=== PATIENT | male | born 1980 | race Caucasian/White ===

== ENCOUNTER 2021-05-06 17:10 | Outpatient (REF) | payer MEDICARE, MEDICAID, SELFPAY ==
[2021-05-06 20:52] LABS: HCT 39.7 % (40.0-50.0); HGB 12.9 g/dL (13.5-17.5); MCH 31.1 pg (27.0-33.0); MCHC 32.5 % (32.0-36.0); MCV 95.7 fL (80-95); MPV 11.2 fL (8.0-11.0); Platelet Count 218 10^3/uL (130-400); RBC 4.15 10^6/uL (4.36-5.78); RDW 14.5 % (11.8-14.1); RDW-SD 50.8 fL; WBC 7.72 10^3/uL (4.4-10.8)
[2021-05-06 21:15] LABS: ALT 16 U/L (16-63); AST 10 U/L (15-37); Albumin 3.5 g/dL (3.4-5.0); Alkaline Phosphatase 107 U/L (46-116); Anion Gap 7.9 mmol/L (3-11); BUN 18 mg/dL (7-18); Bilirubin, Total 0.3 mg/dL (0.2-1.0); CO2 36.1 mmol/L (21.0-32.0); CREATININE 0.9 mg/dL (0.70-1.30); Calcium 8.7 mg/dL (8.5-10.1); Chloride 110 mmol/L (98-107); Glucose 85 mg/dL (74-106); Potassium 3.1 mmol/L (3.5-5.1); Sodium 154 mmol/L (136-145); Total Protein 6.6 g/dL (6.4-8.2)
[2021-05-07 19:10] LABS: Absolute Lymphocyte Count 1.16 10^3/uL (1.2-3.4); Absolute Monocyte Count 0.77 10^3/uL (0.1-0.8); Absolute Neutrophil Count 5.79 10^3/uL (1.2-6.7); Diff Comment Manual Differential; RBC Morphology Normal
[2021-05-09 00:57] LABS: Clozapine 122 ng/mL (350-600); Clozapine+Norclozapine Total 187 ng/mL; Norclozapine 65 ng/mL
== END 2021-05-06 17:11 | disposition home or self-care (01) ==
LOC: NCHCN 17:10
PROVIDERS: Visit Provider Nurse Practitioner Family
DX: Z51.81 Encounter for therapeutic drug level monitoring (principal); F25.9 Schizoaffective disorder, unspecified
CPT/HCPCS: 80053; 85027; 80159; 85007

== ENCOUNTER 2021-05-07 22:07 | Emergency (ER) | payer MEDICARE, MEDICAID, SELFPAY ==
--- NOTE | 2021-05-07 22:00 | RT.EKG_ITS ---
APPROVED REPORT Exam: Resting ECG Reason for Exam: chest pain Patient Location: E HR:94 bpm ECG Measurements Heart Rate 94 AXIS SD [id number] P [id number] QRSd 118 QRS 47 QT 359 T 156 QTc 449 Conclusion Atrial fibrillation Nonspecific st segment changes intraventricular conduction delay
[2021-05-07 22:13] VITALS: BP 104/81; PULSE 113; RESP 17; TEMP 36.4; O2SAT 96
--- NOTE | 2021-05-07 22:15 | DI.RAD_ITS ---
Exam(s) XR CHEST 2V PA LATERAL EXAM: XR CHEST 2V PA LATERAL CLINICAL HISTORY: chest pains. TECHNIQUE: 2D digital imaging was performed. COMPARISON: No exams were available for comparison FINDINGS: There is cardiomegaly. Mediastinum not widened. Lungs are clear. No infiltrates nor pleural effusions. No pulmonary edema IMPRESSION: No acute pulmonary findings. Cardiomegaly. DATA REPOSITORY: RADIATION DOSE DELIVERED:
--- NOTE | 2021-05-07 22:25 | W.ED.GENAD ---
Discharge Plan Disposition Patient Disposition: HOME Condition: Improving Discharge Details Chief Complaint: Chest Pain Clinical Impression: Chest pain Primary Care Provider: Unknown,Unknown ED Provider: Magan Bueno Home Meds and New Rx's Prescriptions: Continued furosemide [Lasix] 40 mg Tablet 40 mg PO DAILY RF: 0 carvedilol [Coreg] 25 mg Tablet 25 mg PO BID RF: 0 potassium chloride 10 mEq Capsule, Extended Release 10 meq PO DAILY RF: 0 torsemide 20 mg Tablet 40 mg PO DAILY RF: 0 clozapine [Clozaril] 100 mg Tablet 150 mg PO HS RF: 0 oxcarbazepine [Trileptal] 300 mg Tablet 900 mg PO BID RF: 0 spironolactone 25 mg Tablet 12.5 mg PO DAILY RF: 0 pantoprazole [Protonix] 40 mg Tablet,Delayed Release (Dr/Ec) 40 mg PO DAILY RF: 0 benztropine 2 mg Tablet 2 mg PO BID RF: 0 docusate sodium [Colace] 100 mg Capsule 100 mg PO BID RF: 0 calcium carbonate 500 mg calcium (1,250 mg) Tablet,Chewable 500 mg PO QID PRNRF: 0 lorazepam [Ativan] 1 mg Tablet 1 mg PO BID PRNRF: 0 Lactobacillus acidophilus [Acidophilus] Capsule 100 mg PO DAILY RF: 0 perphenazine 8 mg Tablet 16 mg PO QID RF: 0 naproxen [Naprosyn] 500 mg Tablet 500 mg PO BID PRNRF: 0 levocarnitine 250 mg Capsule 500 mg PO DAILY RF: 0 cholecalciferol (vitamin D3) [Vitamin D3] 25 mcg (1,000 unit) Capsule 25 mcg PO DAILY RF: 0 Eliquis 5 mg Tablet 5 mg PO BID RF: 0 Jardiance 10 mg Tablet 10 mg PO DAILY RF: 0 melatonin 3 mg Capsule 6 mg PO HS PRNRF: 0 Discharge Instructions Instructions: Chest Pain (ED) Additional Instructions: Your CAT scan did not show evidence of blood clot nor of gallbladder disease. There was a question of a subtle right adrenal nodule for which the radiologist has recommended an outpatient MRI. Please discuss this with your regular doctor. Continue your routine medications. Please follow-up regular doctor for recheck in the next 7 to 10 days time. We will ask our care management team to help arrange a follow-up. Medical Decision Making <TRIP Pedraza - Last Filed: 05/08/21 00:48> Brenda is a 41 year old male, brought in by home care provider at [facility], with c/c of CP and 'gallbladder pain. States that he has had this pain for one year. Pain is maximal tonight. States that his abdominal pain and chest pain equal each other. States he has known hx of atrial fibrillation. Patient is unclear if he has been taking his anticoagulant. Patient is a fairly poor historian. He denies any fevers or chills. His that he was just recently discharged from [facility] for his gallbladder disease. Questions if he is still on antibiotics for this. No previous surgical intervention for this. Past medical history is fairly unclear, will request the notes from [facility]. He denies any pain radiating into his back. No change in bowel or bladder habits. No fevers or chills. States he does have shortness of breath and chest pain when at rest, these are relieved with movement. His gallbladder discomfort is controlled with diet. On exam, patient appears chronically ill. He is tachycardic with a rate of 115 and noted to be irregularly irregular. No murmurs rubs or gallops appreciated. Lungs are clear. He indicates his right upper quadrant area of discomfort but no pain is elicited with palpation. No CVA tenderness. No pitting edema in the lower extremities. Differential this time is quite broad. Is unclear if he has been taking his anticoagulation, I am concerned for potential PE given the pleuritic nature of his chest pain. Also considered ACS, acute cholecystitis, GERD. His history exam is not consistent with dissection. Will obtain baseline labs and imaging. EKG was obtained and reviewed by Dr. Bueno. Patient is in irregularly irregular rhythm consistent with his history of atrial fibrillation with a rate of 94. Nonspecific ST segment changes. Intraventricular conduction delay. Labs reviewed. No leukocytosis. Hemoglobin slightly low at 12.2, is appears to be baseline for the patient. D-dimer slightly elevated at 600, we will obtain a CT for PE protocol. Potassium is low at 3.2, will replenish this orally. Troponin within normal limits. Given the length of time the symptoms have been ongoing, do not feel that repeat troponin is warranted at time. [facility] employee was able to obtain further past medical history. Past medical history is pertinent for ADD, CHF, hypertension, migraines, obesity, schizoaffective disorder, RUTH, atrial fibrillation, pulmonary embolism, psoriatic arthritis, ME,, GERD, gallbladder disease, psoriasis, adrenal adenoma. Patient is anticoagulated and has been taking his medications. At the end of my shift, care transition to Dr. Bueno with CTA for PE protocol as well as CT abdomen pending. Patient remains hemodynamically stable, resting comfortably. Patient sleeping intermittently. <Magan Bueno MD - Last Filed: 05/08/21 01:54> Received signout from Ms. Khalil on the patient pending CT imaging results and repeat troponin. CT images were somewhat limited but no clear evidence of pulmonary embolism. See formal report. No acute finding in the abdomen. Repeat troponin obtained and negative. We will ask home care consultant to arrange a follow-up for the patient with Dr. Ochoa at [place]. Patient stable and improved at this time HPI <TRIP Pedraza - Last Filed: 05/08/21 00:48> General Mode of arrival: ambulatory. Date/Time Provider Initiated Documentation: 05/07/21 22:08. Limitations to Documentation: no limitations. Information obtained by: patient, family (long term acute care registered nurse from [facility]) and RN notes reviewed. History of Present Illness 41 year old M presents to the emergency department with the chief complaint of chest pain, gallbladder pain, described as moderate and similar to prior episodes, with intensity rated at 7. Quality is described as crushing, and is localized to the chest. Patient reports no radiation. Patient started experiencing this year(s) (1) and it has been constant. No relieving factors improve symptom(s), No exacerbating factors reported . Patient notes chest pain, shortness of breath and weakness (generalized); denies cough, diaphoresis, fever/chills, loss of appetite, nausea/vomiting and rash. Patient did receive the following treatments prior to arrival, none Related Data Home Medications Medication Instructions Recorded Confirmed Eliquis 5 mg PO BID 05/07/21 05/07/21 Jardiance 10 mg PO DAILY 05/07/21 05/07/21 Lactobacillus acidophilus 100 mg PO DAILY 05/07/21 05/07/21 [Acidophilus] benztropine 2 mg PO BID 05/07/21 05/07/21 calcium carbonate 500 mg PO QID PRN 05/07/21 05/07/21 carvedilol [Coreg] 25 mg PO BID 05/07/21 05/07/21 cholecalciferol (vitamin D3) 25 mcg PO DAILY 05/07/21 05/07/21 [Vitamin D3] clozapine [Clozaril] 150 mg PO HS 05/07/21 05/07/21 docusate sodium [Colace] 100 mg PO BID 05/07/21 05/07/21 furosemide [Lasix] 40 mg PO DAILY 05/07/21 05/07/21 levocarnitine 500 mg PO DAILY 05/07/21 05/07/21 lorazepam [Ativan] 1 mg PO BID PRN 05/07/21 05/07/21 melatonin 6 mg PO HS PRN 05/07/21 05/07/21 naproxen [Naprosyn] 500 mg PO BID PRN 05/07/21 05/07/21 oxcarbazepine [Trileptal] 900 mg PO BID 05/07/21 05/07/21 pantoprazole [Protonix] 40 mg PO DAILY 05/07/21 05/07/21 perphenazine 16 mg PO QID 05/07/21 05/07/21 potassium chloride 10 meq PO DAILY 05/07/21 05/07/21 spironolactone 12.5 mg PO DAILY 05/07/21 05/07/21 torsemide 40 mg PO DAILY 05/07/21 05/07/21 Allergies Allergy/AdvReac Type Severity Reaction Status Date / Time latex Allergy Severe Unverified 05/07/21 22:23 divalproex sodium Allergy Unverified 05/07/21 22:55 [facility] General Stated Complaint: Chest Pain CONNER: 3 Review of Systems <TRIP Pedraza - Last Filed: 05/08/21 00:48> Constitutional Constitutional: Reports as per HPI, Denies chills, Denies fever(s), Denies headache(s), Denies lethargy and Denies poor appetite Eyes Eyes: Denies change in vision ENT Ears, Nose, Mouth, and Throat: Denies dizziness and Denies headache(s) Cardiovascular Cardiovascular: Reports as per HPI, Reports chest pain, Reports chest pain at rest, Denies chest pain with activity, Denies diaphoresis, Denies syncope, Denies lightheadedness, Denies radiating jaw, neck or arm pain, Reports dyspnea and Denies dyspnea on exertion (SOB and CP improved with activity) Respiratory Respiratory: Reports as per HPI, Denies chest congestion, Denies cough, Denies pain on inspiration, Reports pain with cough, Reports dyspnea, Denies dyspnea on exertion (SOB and CP improved with activity) and Denies wheezing Gastrointestinal Gastrointestinal: Reports as per HPI, Reports abdominal pain, Denies diarrhea, Denies nausea and Denies vomiting Genitourinary Genitourinary: Denies system reviewed and no additional complaints, except as documented (denies change in urinary habits) Musculoskeletal Musculoskeletal: Reports as per HPI and Denies back pain Integumentary/Breasts Skin/Breast: Reports as per HPI and Denies rash Neurologic Neurologic: Reports as per HPI, Denies dizziness, Denies syncope and Denies headache(s) Allergic/Immunologic Allergic/Immunologic: Denies wheezing PFSH <TRIP Pedraza - Last Filed: 05/08/21 00:48> Social History Smoking/Tobacco Use Status: Never Smoking risk assessment performed?: Yes Alcohol Intake: former Drug use: Never Substance use type: does not use Do you feel safe at home: Yes Do you feel safe in your relationship?: Yes Exam <TRIP Pedraza - Last Filed: 05/08/21 00:48> Const General: cooperative, comfortable, well developed, anxious and ill appearing chronically Nutritional Appearance: well nourished and obese Orientation: alert, awake and oriented x3 HENMT Head: normal to inspection Ears: hearing grossly normal bilaterally Mouth: moist mucous membranes Chest Chest: normal inspection of the chest (multitude of sticky areas consistent with previous cardiac monitoring), normal palpation of entire chest wall and no crepitus Resp Effort & Inspection: normal respiratory effort, able to speak in complete sentences and no respiratory distress Auscultation: clear to auscultation bilaterally, no rales, no rhonchi and no wheezes Cardio Rate: regular rate Rhythm: abnormal rhythm irregularly irregular Heart Sounds: S1 normal and S2 normal GI Inspection: normal to inspection, no edema, non-distended and obesity Palpation: soft, no hepatosplenomegaly, not firm, no guarding, not rigid and nontender (indicates RUQ but no pain with palpation) Auscultation: normal bowel sounds Back/Spine/Pelvis Back: no CVA tenderness Thoracic/Lumbar Spine: thoracic and lumbar spine normal to inspection Skin General skin exam: no rashes or lesions noted Trauma: no lacerations or abrasions Neuro General: patient alert, patient awake and patient oriented x3 Cognition: normal cognition Speech: speech normal Gait: normal gait (appears shaky) Extrem General: normal to inspection, capillary refill normal, no pedal edema, no calf tenderness and normal gait Psych Appearance: grossly normal and disheveled Mental Status: mental status grossly normal Speech and Movement: speech and movement normal Course <TRIP Pedraza - Last Filed: 05/08/21 00:48> Vital Signs Vital signs: Vital Signs Temperature 36.4 C L 05/07/21 22:13 Pulse 113 H 05/07/21 22:13 Respiratory Rate 17 05/07/21 22:13 Blood Pressure 104/81 05/07/21 22:13 Pulse Oximetry 96 05/07/21 22:13 Temperature 36.4 C L 05/07/21 22:13 Temperature Source Temporal Artery Scan 05/07/21 22:13 Pulse 113 H 05/07/21 22:13 Respiratory Rate 17 05/07/21 22:13 Respiratory Effort Non-Labored 05/07/21 22:19 Blood Pressure 104/81 05/07/21 22:13 Blood Pressure Position Supine 05/07/21 22:13 Pulse Oximetry 96 05/07/21 22:13 Oxygen Delivery Method Room Air 05/07/21 22:13 Oxygen Flow Rate 0 05/07/21 22:13 Pain Level 7 05/07/21 22:13 Sign Out <TRIP Pedraza - Last Filed: 05/08/21 00:48> Sign Out Data: Sign Out Comment: Care transition to Dr. Bueno with CTA for PE as well as CT abdomen for evaluation of gallbladder pending. Have requested recent discharge summary from [facility]. Patient currently sleeping, stable. Last updated by Nallely Gamez PA at 05/07/21 23:40
[2021-05-07 22:39] LABS: Abs Immature Grans 0.06 10^3/uL (0.0-0.06); Absolute Basophil Count 0.06 10^3/uL (0.0-0.2); Absolute Eosinophil Count 0.07 10^3/uL (0.0-0.7); Absolute Monocyte Count 0.72 10^3/uL (0.1-0.8); Absolute Neutrophil Count 5.91 10^3/uL (1.2-6.7); Basophils % 0.7; Eosinophils % 0.8; HCT 36.8 % (40.0-50.0); HGB 12.2 g/dL (13.5-17.5); Immature Grans % 0.7; Lymphocytes % 22.7; MCH 31.2 pg (27.0-33.0); MCHC 33.2 % (32.0-36.0); MCV 94.1 fL (80-95); MPV 10.1 fL (8.0-11.0); Monocytes % 8.2; Neutrophils % 66.9; Nucleated RBC 0 %; Platelet Count 217 10^3/uL (130-400); RBC 3.91 10^6/uL (4.36-5.78); RDW 14.5 % (11.8-14.1); RDW-SD 49.5 fL; WBC 8.82 10^3/uL (4.4-10.8)
[2021-05-07 22:54] LABS: ALT 15 U/L (16-63); AST 7 U/L (15-37); Albumin 3.3 g/dL (3.4-5.0); Alkaline Phosphatase 106 U/L (46-116); Anion Gap 6.8 mmol/L (3-11); BUN 21 mg/dL (7-18); Bilirubin, Total 0.2 mg/dL (0.2-1.0); CO2 33.2 mmol/L (21.0-32.0); Calcium 8.7 mg/dL (8.5-10.1); Chloride 106 mmol/L (98-107); Glucose 103 mg/dL (74-106); Magnesium 1.9 mg/dL (1.8-2.4); Potassium 3.2 mmol/L (3.5-5.1); Sodium 146 mmol/L (136-145); Total Protein 6.9 g/dL (6.4-8.2); Troponin I < 0.05 ng/mL (<0.06)
[2021-05-07 22:59] LABS: INR 1.2 (0.9-1.1); PTT Activated 26.1 sec (21.0-27.5); Prothrombin Time 11.6 sec (9.3-11.0)
[2021-05-07 23:08] LABS: D-Dimer 600 ng/mlFEU (<500)
[2021-05-07] MEDS: Potassium Chloride 20 MEQ TABCR 40 MEQ PO (23:11)
--- NOTE | 2021-05-07 23:15 | DI.CT_ITS ---
Exam(s) CT CHEST PE ABD PELVIS W EXAM: CT CHEST PE ABD PELVIS W CLINICAL HISTORY: SOB, CP, RUQ pain. TECHNIQUE: Imaging Protocol: Axial CT angiography was performed with multi-slice acquisition and m ulti-planar and/or 3D reconstructions. CONTRAST MATERIAL: Intravenous: Omnipaque 350 Contrast volume:100 ml Oral: None COMPARISON: No exams were available for comparison FINDINGS: CHEST: PULMONARY ARTERIES: There are no intra-arterial filling defects to suggest the presence of acute cent ral pulmonary emboli. Injection bolus is inadequate to determine the presence of pulmonary emboli an d distal pulmonary artery tree. LUNGS: There is no evidence of pulmonary infarction. There are no pleural effusions.No significant f indings in the trachea and mainstem bronchi. MEDIASTINUM: There is no hilar nor mediastinal adenopathy. Visualized thyroid unremarkable. CARDIAC: There is 4 chamber cardiomegaly.No shift of the interventricular septum. No pericardial eff usion. Caliber thoracic aorta is within normal limits. OSSEOUS: No significant osseous lesions.. ABDOMEN: There is no ascites. LIVER: There are no focal hepatic lesions nor dilatation of intrahepatic ducts. GALLBLADDER/BILIARY: No obvious gallbladder pathology. CBD is not dilated. PANCREAS: No evidence of pancreatic mass nor dilatation of the pancreatic duct. SPLEEN: Spleen is not enlarged. There are no intrasplenic lesions. Splenic and portal veins are ribeiro nt. ADRENALS: There is a 2.3 x 1.7 cm nodule in the medial limb of the right adrenal gland. Left adrenal gland is unremarkable. KIDNEYS:No cysts evident. No calculi nor hydronephrosis. No solid renal masses. ABDOMINAL AORTA: Abdominal aorta is not enlarged. LYMPH NODES: There is no retroperitoneal or para-aortic adenopathy. ABDOMINAL WALL/GI: Midline fat containing umbilical hernia. No bowel obstruction. PELVIS: LYMPH NODES: There is no intrapelvic nor inguinal adenopathy. However, in the right groin there is a slightly dilated venous channel with diameter of 2 cm, this draining into the right common femoral v ein. GI: No evidence of appendicitis.No evidence of sigmoid diverticulitis.However, there is a small amoun t of free fluid in the dependent aspect of the pelvis URINARY BLADDER: No calculi nor masses evident REPRODUCTIVE: Prostate not enlarged. OSSEOUS: No significant osseous lesions. IMPRESSION: 1. No evidence of acute control pulmonary emboli nor pulmonary infarction. Bolus of contrast is inad equate to determine patency of distal pulmonary arteries in either lung. 2. There are no pleural effusions. 3. Cardiomegaly. No obvious pulmonary edema. 4. There is a 2.3 x 1.7 centimeter nodule in the right adrenal gland. Follow-up MRI recommended for added specificity as to whether this is an adenoma or other pathology. 5. Dilated vessel in the right groin is a venous collateral which is draining into the right common f emoral vein. 6. There is a trace amount of free fluid in the dependent aspect of the pelvis. Appropriate follow- up recommended given that this is a male patient. RADIATION DOSE DELIVERED: 3,002.97mGy.cm Total DLP DATA REPOSITORY: All CT scans at this facility are submitted to the National Radiology Data Registry (NRDR) Dose Index Registry (DIR) with the [employer] (ACR). RADIATION OPTIMIZATION: All CT scans at this facility use at least one of these dose optimization te chniques: automated exposure control; mA and/or kV adjustment per patient size (includes targeted exa ms where dose is matched to clinical indication); or iterative reconstruction.
[2021-05-07] MEDS: Omnipaque 350 MG/ML 100 ML BTL IV (23:31)
[2021-05-07] MEDS: Normal Saline - Diluent 50 ML VIAL IV (23:32)
--- NOTE | 2021-05-07 23:49 | DI.VRAD_ITS ---
PROCEDURE INFORMATION: Exam: XR Chest Exam date and time: 05/07/2021 10:19 PM Age: 41 years old Clinical indication: Other: Chest pains TECHNIQUE: Imaging protocol: XR of the chest. Views: 2 views. COMPARISON: No relevant prior studies available. FINDINGS: Lungs: No consolidation is seen. Pleural spaces: There is no pleural effusion or pneumothorax. Heart/Mediastinum: There is [id number] multichamber cardiomegaly concerning for a cardiomyopathy or pericardial effusion. There is no congestive heart failure. Bones/joints: The bones are grossly intact with mild spondylosis of the thoracic spine. IMPRESSION: 1. [id number] cardiomegaly without overt failure. Dictated and Authenticated by: Babar Whitlock MD. Ordering:CHARLOTTE Carrero MD
[2021-05-08] VITALS (13 sets, daily range): BP systolic 112–133; BP diastolic 49–82; PULSE 79–128; RESP 14–19; O2SAT 80–95
--- NOTE | 2021-05-08 00:27 | DI.VRAD_ITS ---
PROCEDURE INFORMATION: Exam: CTA Chest With Contrast Exam date and time: 05/07/2021 11:17 PM Age: 41 years old Clinical indication: Other: SOB, cp, ruq pain; Additional info: SOB, cp, ruq pain, motion due to PT unable to hold his breath TECHNIQUE: Imaging protocol: Computed tomographic angiography of the chest with contrast. 3D rendering (Not supervised by radiologist): MIP and/or 3D reconstructed images were created by the technologist. Radiation optimization: All CT scans at this facility use at least one of these dose optimization techniques: automated exposure control; mA and/or kV adjustment per patient size (includes targeted exams where dose is matched to clinical indication); or iterative reconstruction. Contrast material: OMINAPQUE 350; Contrast volume: 100 ml; Contrast route: INTRAVENOUS (IV); COMPARISON: CR XR CHEST 2V PA LATERAL 05/07/2021 10:44 PM FINDINGS: Limitations: Significant respiratory motion and suboptimal enhancement of the pulmonary arteries. Pulmonary arteries: There is no large or medium-sized central pulmonary embolus. Small or distal emboli cannot be excluded reliably. Aorta: No aortic aneurysm is seen. Lungs: There is no lobar consolidation. The central airway is grossly clear. Pleural spaces: Unremarkable. No pneumothorax. No pleural effusion. Heart: There is mild to moderate multichamber cardiomegaly but no pericardial effusion. No overt congestive heart failure is seen. Lymph nodes: No pathologic lymphadenopathy identified. Bones/joints: There is mild spondylosis of the thoracic spine. No acute osseous abnormality is seen. Soft tissues: Unremarkable. IMPRESSION: 1. Limited by significant motion and suboptimal enhancement of the pulmonary arteries. 2. No definite large or medium-sized pulmonary embolus. Small or distal emboli cannot be excluded reliably given the limitations. 3. Mild to moderate multichamber cardiomegaly but no overt congestive heart failure. PROCEDURE INFORMATION: Exam: CT Angiography Abdomen With Contrast Exam date and time: 05/07/2021 11:17 PM Age: 41 years old Clinical indication: Other: SOB, cp, ruq pain; Additional info: SOB, cp, ruq pain, motion due to PT unable to hold his breath TECHNIQUE: Imaging protocol: Computed tomographic angiography images of the abdomen with intravenous contrast material. 3D rendering (Not supervised by radiologist): MIP and/or 3D reconstructed images were created by the technologist. Contrast material: OMINAPQUE 350; Contrast volume: 100 ml; Contrast route: INTRAVENOUS (IV); COMPARISON: CR XR CHEST 2V PA LATERAL 05/07/2021 10:44 PM FINDINGS: Limitations: Motion. Aorta: No aortic aneurysm. Celiac trunk and mesenteric arteries: No occlusion or significant stenosis. Renal arteries: No occlusion or significant stenosis. Liver: Hepatic steatosis. Gallbladder and bile ducts: Normal. No calcified stones. No ductal dilation. Pancreas: The pancreas is mildly atrophic. Spleen: Normal. No splenomegaly. Adrenals: There is a 2.3 cm right adrenal nodule (Hounsfield units: 51.5). The left adrenal gland is normal. Kidneys and ureters: Normal. No hydronephrosis. Stomach and bowel: There is mild diverticulosis without diverticulitis. There is no small bowel obstruction or ileus. Lymph nodes: Unremarkable. No enlarged lymph nodes. Intraperitoneal space: There is a trace amount of free fluid in the pelvis (Hounsfield units:-4.8). There is no drainable abscess or free air. Reproductive: I suspect there is a 1.8 x 3.0 cm pseudoaneurysm within the right groin. Bones/joints: Unremarkable. No acute fracture. No dislocation. Soft tissues: Unremarkable. IMPRESSION: 1. Limited by significant motion. 2. Diverticulosis without definite diverticulitis. 3. Hepatic steatosis. 4. Findings suspicious for a 1.8 x 3.0 cm pseudoaneurysm within the right groin. 5. Trace amount of free fluid in the pelvis. No free air or drainable abscess. 6. Indeterminate right adrenal nodule. This may be an atypical adrenal adenoma, although, other adrenal lesions are not excluded. Correlation with a nonemergent adrenal gland protocol MRI advised. Dictated and Authenticated by: Babar Whitlock MD. Ordering:OMID Browning MD
[2021-05-08 01:42] LABS: Troponin I < 0.05 ng/mL (<0.06)
== END 2021-05-08 02:00 | disposition home or self-care (01) ==
PROVIDERS: Emergency Provider Emergency Medicine
DX: R07.9 Chest pain, unspecified (principal)
CPT/HCPCS: 36415; 71275; 74177; 80053; 93005; 99285; 71046; 83735; 84484; 85025; 85379; 85610; 85730; 93010; 99284; J3490

== ENCOUNTER 2021-05-11 19:40 | Emergency (ER) | payer MEDICARE, MEDICAID, SELFPAY ==
[2021-05-11 19:47] VITALS: BP 158/135; PULSE 61; RESP 18; TEMP 36.5; O2SAT 95
--- NOTE | 2021-05-11 20:00 | RT.EKG_ITS ---
APPROVED REPORT Exam: Resting ECG Reason for Exam: Hx Atrial fibrillation, palpitations Patient Location: E HR:86 bpm ECG Measurements Heart Rate 86 AXIS WI [id number] P [id number] QRSd 141 QRS 0 QT 405 T 148 QTc 486 Conclusion Atrial fibrillation...? atrial activity Nonspecific intraventricular conduction delay...QRSd >115mS, not LBBB/RBBB Abnormal T, consider ischemia, lateral leads...T <-0.20mV, I aVL V5 V6 Physician: Artifact vs flutter. minimal unchanged depressions in the lateral leads, unchanged from p rior ekg on 05/07/21
--- NOTE | 2021-05-11 20:21 | W.ED.GENAD ---
Discharge Plan Disposition Patient Disposition: HOME Condition: Stable Discharge Details Clinical Impression: Abdominal pain Primary Care Provider: Unknown,Unknown ED Provider: lAesia Choi Home Meds and New Rx's Prescriptions: Continued ibuprofen 600 mg Tablet 600 mg PO TID PRNRF: 0 lisinopril [Zestril] 40 mg Tablet 40 mg PO DAILY RF: 0 capsaicin [Capzasin-HP] 0.1 % Cream 1 applic TOPICAL BID RF: 0 clonidine HCl 0.1 mg Tablet 0.1 mg PO BID RF: 0 furosemide [Lasix] 40 mg Tablet 40 mg PO DAILY RF: 0 carvedilol [Coreg] 25 mg Tablet 25 mg PO BID RF: 0 potassium chloride 10 mEq Capsule, Extended Release 10 meq PO DAILY RF: 0 torsemide 20 mg Tablet 40 mg PO DAILY RF: 0 clozapine [Clozaril] 100 mg Tablet 150 mg PO HS RF: 0 oxcarbazepine [Trileptal] 300 mg Tablet 900 mg PO BID RF: 0 spironolactone 25 mg Tablet 12.5 mg PO DAILY RF: 0 pantoprazole [Protonix] 40 mg Tablet,Delayed Release (Dr/Ec) 40 mg PO DAILY RF: 0 benztropine 2 mg Tablet 2 mg PO BID RF: 0 docusate sodium [Colace] 100 mg Capsule 100 mg PO BID RF: 0 calcium carbonate 500 mg calcium (1,250 mg) Tablet,Chewable 500 mg PO QID PRNRF: 0 lorazepam [Ativan] 1 mg Tablet 1 mg PO BID PRNRF: 0 Lactobacillus acidophilus [Acidophilus] Capsule 100 mg PO DAILY RF: 0 perphenazine 8 mg Tablet 16 mg PO QID RF: 0 naproxen [Naprosyn] 500 mg Tablet 500 mg PO BID PRNRF: 0 levocarnitine 250 mg Capsule 500 mg PO DAILY RF: 0 cholecalciferol (vitamin D3) [Vitamin D3] 25 mcg (1,000 unit) Capsule 25 mcg PO DAILY RF: 0 Eliquis 5 mg Tablet 5 mg PO BID RF: 0 Jardiance 10 mg Tablet 10 mg PO DAILY RF: 0 melatonin 3 mg Capsule 6 mg PO HS PRNRF: 0 Discharge Instructions Instructions: Abdominal Pain (ED) Additional Instructions: Follow up with primary care provider in 3-5 days. Return to ED sooner if any worsening or concerns. Increase oral fluids. Please take Tylenol or Ibuprofen with food every 4-6 hours as needed for pain and swelling. At this time labs are not indicative of gallbladder problem at this time. Medical Decision Making 41-year-old male with a history of schizophrenia, atrial fibrillation, who lives at [facility] presents to the ER with abdominal pain and nausea after eating hotdogs mac & cheese approximately 1 hour prior to arrival. Patient has not vomited. Patient denies any dysuria. He does report worsened my A. fib does endorse palpitations. No chest pain no shortness of breath. Caretakers are at bedside. Patient has a past medical history of ADD, CHF, PE, hypertension, obesity, migraine headaches, RUTH, ID, GERD, adrenal adenoma. At this time work-up ordered including EKG, serial troponins, CBC, CMP, lipase Patient was seen here 4 days ago for similar complaint had a CT chest abdomen pelvis which showed no gallbladder etiology no dilation of the common bile duct. Ok'd to take his PM meds. Labs show no leukocytosis RBC 3.97 sodium 149, potassium 3.5, chloride 110 BUN 25 creatinine 1.1 GFR greater than [address] abd Pelvis with contrast ordered. 2206: CT Declined by patient, discussed lab results with patient and caregiver, patient would like to be DC'd home. At this time given the normal lab values I do believe that this is reasonable and CT canceled. Patient discharged in the care of his caregivers back to his assisted living facility instructed to follow-up with PCP. This text was generated using [employer] dictation system, please disregard any oddities of phrase or misspellings. HPI General Mode of arrival: ambulatory. Date/Time Provider Initiated Documentation: 05/11/21 20:06. Limitations to Documentation: no limitations. Information obtained by: patient, RN notes reviewed and old records reviewed. HPI Narrative: 41-year-old male with a history of schizophrenia, atrial fibrillation, who lives at [facility] presents to the ER with abdominal pain and nausea after eating hotdogs mac & cheese approximately 1 hour prior to arrival. Patient has not vomited. Patient denies any dysuria. He does report worsened my A. fib does endorse palpitations. No chest pain no shortness of breath. Caretakers are at bedside. Patient has a past medical history of ADD, CHF, PE, hypertension, obesity, migraine headaches, RUTH, ID, GERD, adrenal adenoma. Related Data Home Medications Medication Instructions Recorded Confirmed Eliquis 5 mg PO BID 05/07/21 05/11/21 Jardiance 10 mg PO DAILY 05/07/21 05/11/21 Lactobacillus acidophilus 100 mg PO DAILY 05/07/21 05/11/21 [Acidophilus] benztropine 2 mg PO BID 05/07/21 05/11/21 calcium carbonate 500 mg PO QID PRN 05/07/21 05/11/21 carvedilol [Coreg] 25 mg PO BID 05/07/21 05/11/21 cholecalciferol (vitamin D3) 25 mcg PO DAILY 05/07/21 05/11/21 [Vitamin D3] clozapine [Clozaril] 150 mg PO HS 05/07/21 05/11/21 docusate sodium [Colace] 100 mg PO BID 05/07/21 05/11/21 furosemide [Lasix] 40 mg PO DAILY 05/07/21 05/07/21 levocarnitine 500 mg PO DAILY 05/07/21 05/11/21 lorazepam [Ativan] 1 mg PO BID PRN 05/07/21 05/11/21 melatonin 6 mg PO HS PRN 05/07/21 05/11/21 naproxen [Naprosyn] 500 mg PO BID PRN 05/07/21 05/11/21 oxcarbazepine [Trileptal] 900 mg PO BID 05/07/21 05/11/21 pantoprazole [Protonix] 40 mg PO DAILY 05/07/21 05/11/21 perphenazine 16 mg PO QID 05/07/21 05/11/21 potassium chloride 10 meq PO DAILY 05/07/21 05/11/21 spironolactone 12.5 mg PO DAILY 05/07/21 05/11/21 torsemide 40 mg PO DAILY 05/07/21 05/11/21 capsaicin [Capzasin-HP] 1 applic TOPICAL BID 05/11/21 05/11/21 clonidine HCl 0.1 mg PO BID 05/11/21 05/11/21 ibuprofen 600 mg PO TID PRN 05/11/21 05/11/21 lisinopril [Zestril] 40 mg PO DAILY 05/11/21 05/11/21 Allergies Allergy/AdvReac Type Severity Reaction Status Date / Time latex Allergy Severe Unverified 05/11/21 20:26 divalproex sodium Allergy Unverified 05/11/21 20:26 [From [facility]] General Stated Complaint: Abd Prob CONNER: 3 Review of Systems Narrative: Constitutional: Negative for weight loss, alert and oriented, well groomed, obese body habitus, appears comfortable. HEENT: Denies trauma, headaches, blurry vision, nasal discharge, sore throat, trouble swallowing. Chest: Denies chest pain, hypertension. Positive palpitations history of atrial fibrillation. Respiratory: Denies Shortness of breath, cough, hemoptysis. GI: Denies vomiting, diarrhea, constipation. Positive abdominal pain, nausea : Denies dysuria, hematuria, flank pain, rectal bleeding. Neuro: Denies dizziness, blurry vision, weakness, syncope, headache or facial numbness. Hematologic: Denies easy bruising, intolerance to heat or cold, hair loss. [facility] Social History Smoking/Tobacco Use Status: Never Smoking risk assessment performed?: Yes Alcohol Intake: former Drug use: Never Substance use type: does not use Do you feel safe at home: Yes Do you feel safe in your relationship?: Yes Exam Narrative Exam Narrative: Constitutional: Alert and oriented x3. Appears stated age. Obese body habitus. Head: Normocephalic, no trauma. Eyes: Pupils PERRLA, Red reflex noted, EOM's intact. Eyelids symmetrical without lesions, discharge, or swelling. ENT: Bilateral TM's WNL, External ear normal to inspection, no mastoid TTP, swelling, or erythema, Nasal turbinates WNL, no nasal discharge. Normal dentition, Posterior pharynx WNL, no exudate. Chest: RRR, Normal S1, S2, distal pulses intact. Resp: Lungs clear to auscultation bilaterally, no wheezes, rales, or rhonchi. Abdomen: Obese girth, soft, right upper quadrant right lower quadrant tenderness with palpation. Musculoskeletal: Normal gait, 5/5 strength to all four extremities. Skin: No suspicious rashes or lesions. Capillary refill less than 2 sec. Neurologic: Cranial nerves II-XII intact. Alert and oriented x 3. DTR's intact. Hematologic/Lymphatic: No ecchymosis, no lymphadenopathy. Course Vital Signs Vital signs: Vital Signs Temperature 36.5 C 05/11/21 19:47 Pulse 61 05/11/21 19:47 Respiratory Rate 18 05/11/21 19:47 Blood Pressure 158/135 H 05/11/21 19:47 Pulse Oximetry 95 05/11/21 19:47 Temperature 36.5 C 05/11/21 19:47 Pulse 61 05/11/21 19:47 Respiratory Rate 18 05/11/21 19:47 Blood Pressure 158/135 H 05/11/21 19:47 Pulse Oximetry 95 05/11/21 19:47 Pain Level 7 05/11/21 19:47
[2021-05-11 20:27] LABS: Abs Immature Grans 0.05 10^3/uL (0.0-0.06); Absolute Basophil Count 0.04 10^3/uL (0.0-0.2); Absolute Eosinophil Count 0.06 10^3/uL (0.0-0.7); Absolute Monocyte Count 0.66 10^3/uL (0.1-0.8); Absolute Neutrophil Count 5.76 10^3/uL (1.2-6.7); Basophils % 0.5; Eosinophils % 0.7; HCT 37.6 % (40.0-50.0); HGB 12.5 g/dL (13.5-17.5); Immature Grans % 0.6; Lymphocytes % 19.6; MCH 31.5 pg (27.0-33.0); MCHC 33.2 % (32.0-36.0); MCV 94.7 fL (80-95); MPV 10.3 fL (8.0-11.0); Monocytes % 8.1; Neutrophils % 70.5; Nucleated RBC 0 %; Platelet Count 222 10^3/uL (130-400); RBC 3.97 10^6/uL (4.36-5.78); RDW 14.4 % (11.8-14.1); RDW-SD 49.3 fL; WBC 8.17 10^3/uL (4.4-10.8)
[2021-05-11 20:35] VITALS: BP 122/90; PULSE 106; PULSE 86; RESP 15; O2SAT 88
[2021-05-11 20:36] VITALS: PULSE 114; RESP 17; O2SAT 90
[2021-05-11 20:40] VITALS: PULSE 109; RESP 20; O2SAT 90
[2021-05-11 20:48] LABS: ALT 18 U/L (16-63); AST 12 U/L (15-37); Albumin 3.3 g/dL (3.4-5.0); Alkaline Phosphatase 98 U/L (46-116); Anion Gap 6.7 mmol/L (3-11); BUN 25 mg/dL (7-18); Bilirubin, Total 0.3 mg/dL (0.2-1.0); CO2 32.3 mmol/L (21.0-32.0); CREATININE 1.1 mg/dL (0.70-1.30); Chloride 110 mmol/L (98-107); Glucose 122 mg/dL (74-106); Lipase 151 U/L (73-393); Magnesium 2.1 mg/dL (1.8-2.4); Potassium 3.5 mmol/L (3.5-5.1); Sodium 149 mmol/L (136-145); Total Protein 6.8 g/dL (6.4-8.2)
[2021-05-11 20:59] LABS: Troponin I < 0.05 ng/mL (<0.06)
== END 2021-05-11 22:11 | disposition home or self-care (01) ==
PROVIDERS: Emergency Provider Registered Nurse Emergency
DX: R10.9 Unspecified abdominal pain (principal)
CPT/HCPCS: 36415; 80053; 83690; 93005; 99283; 81003; 83735; 84484; 85025; 93010

== ENCOUNTER 2021-05-13 14:27 | Outpatient (REF) | payer MEDICARE, MEDICAID, SELFPAY ==
[2021-05-13 19:54] LABS: ALT 18 U/L (16-63); AST 12 U/L (15-37); Albumin 3.3 g/dL (3.4-5.0); Alkaline Phosphatase 108 U/L (46-116); Anion Gap 5.9 mmol/L (3-11); BUN 24 mg/dL (7-18); Bilirubin, Total 0.3 mg/dL (0.2-1.0); CO2 34.1 mmol/L (21.0-32.0); CREATININE 0.9 mg/dL (0.70-1.30); Calcium 8.4 mg/dL (8.5-10.1); Chloride 109 mmol/L (98-107); Glucose 94 mg/dL (74-106); Potassium 3.5 mmol/L (3.5-5.1); Sodium 149 mmol/L (136-145); Total Protein 6.4 g/dL (6.4-8.2)
== END 2021-05-13 14:28 | disposition home or self-care (01) ==
LOC: NCHCN 14:27
PROVIDERS: Visit Provider Nurse Practitioner Family
DX: R79.9 Abnormal finding of blood chemistry, unspecified (principal)
CPT/HCPCS: 80053

== ENCOUNTER 2021-06-04 18:26 | Outpatient (REF) | payer MEDICARE, MEDICAID, SELFPAY ==
[2021-06-04 18:57] LABS: Bilirubin Negative (Negative); Blood Negative (Negative); Clarity Clear (Clear); Glucose Negative (Negative); Ketones Negative (Negative); Leukocyte Esterase Negative (Negative); Nitrite Negative (Negative); Specific Gravity 1.015 (1.005-1.025); Urobilinogen 0.2 EU/dL (Up TO 0.2)
== END 2021-06-04 18:27 | disposition home or self-care (01) ==
LOC: NCHCN 18:26
PROVIDERS: Visit Provider Nurse Practitioner Family
DX: R32 Unspecified urinary incontinence (principal)
CPT/HCPCS: 81003

== ENCOUNTER 2021-06-13 01:19 | Outpatient (CLI) | payer MEDICARE, MEDICAID, SELFPAY ==
[2021-06-13] MEDS: Gadoterate meglumine 20 ML VIAL IVP (10:56)
--- NOTE | 2021-06-13 11:00 | DI.MRI_ITS ---
Exam(s) MR ABDOMEN WO/W EXAM: MR ABDOMEN WO/W CLINICAL HISTORY: F/U ABNL IMAGING,R93.5,RT ADRENAL GLAND NODULE TECHNIQUE: Multiplanar multisequence MRI was performed with both pre and post contrast infused seque nces. Contrast injected sequences were performed following IV injection of 20 cc of Dotarem. COMPARISON: CT CT CHEST PE ABD PELVIS W from 05/07/2021 05/07/2021 was reviewed FINDINGS: VISUALIZED LUNG BASES: No pleural effusions evident. Cardiomegaly noted. Is no ascites evident in the upper abdomen. LIVER: No discrete focal hepatic lesions. No obvious steatosis. BILIARY: There are multiple small layering gallstones within the gallbladder lumen. There is no gall bladder wall edema. The CBD is not dilated. PANCREAS: There is no evidence of pancreatic mass nor dilatation of the pancreatic duct. SPLEEN: Spleen is not enlarged and there are no intrasplenic lesions.Splenic and portal veins are pat ent ADRENALS: Left adrenal gland is unremarkable. There is a nodule in the right adrenal gland again not ed, as seen on the recent CT scan. This nodule measures 2.3 by 1.8 cm, unchanged. Does not exhibit decreasing signal on out of phase sequences. Therefore is not a typical benign adenoma. KIDNEYS: No solid renal masses. No hydronephrosis.No cysts evident. ABDOMINAL AORTA: Not enlarged and there is no significant para-aortic adenopathy. ANTERIOR ABDOMINAL WALL/GI: There is no evidence of significant anterior abdominal wall hernia in the field of view of this study.Is no evidence of obvious bowel obstruction. OSSEOUS: There are no lytic osseous lesions in the field of view of this study. IMPRESSION: 1. Cholelithiasis. There are multiple small layering gallstones in the gallbladder lumen. There is no evidence of acute cholecystitis nor dilatation of the biliary tree, both intra and extrahepatic. 2. Right adrenal gland nodule measuring 23 x 18 millimeters, unchanged from the CT measurement of 1 m onth ago. However, this nodule does not exhibit signal dropout on out of phase chemical shift sequen angel and is therefore not a typical benign adenoma. Therefore we will require appropriate close follo w-up. 3. The opposite-left adrenal gland is unremarkable. DATA REPOSITORY:
== END 2021-06-13 01:39 ==
PROVIDERS: PCP Internal Medicine; Visit Provider Nurse Practitioner Family
DX: D35.00 Benign neoplasm of unspecified adrenal gland (principal); R93.5 Abnormal findings on diagnostic imaging of other abdominal regions, including retroperitoneum; K80.20 Calculus of gallbladder without cholecystitis without obstruction
CPT/HCPCS: 74183

== ENCOUNTER 2021-07-02 04:38 | Outpatient (CLI) | payer MEDICARE, MEDICAID, SELFPAY ==
[2021-07-02 11:42] LABS: Abs Immature Grans 0.03 10^3/uL (0.0-0.06); Absolute Basophil Count 0.04 10^3/uL (0.0-0.2); Absolute Eosinophil Count 0.05 10^3/uL (0.0-0.7); Absolute Lymphocyte Count 1.65 10^3/uL (1.2-3.4); Absolute Monocyte Count 0.68 10^3/uL (0.1-0.8); Absolute Neutrophil Count 6.05 10^3/uL (1.2-6.7); Basophils % 0.5; Eosinophils % 0.6; HCT 36.4 % (40.0-50.0); HGB 12.1 g/dL (13.5-17.5); Immature Grans % 0.4; Lymphocytes % 19.4; MCH 30.9 pg (27.0-33.0); MCHC 33.2 % (32.0-36.0); MCV 93.1 fL (80-95); MPV 9.4 fL (8.0-11.0); Neutrophils % 71.1; Nucleated RBC 0 %; Platelet Count 221 10^3/uL (130-400); RBC 3.91 10^6/uL (4.36-5.78); RDW-SD 43.4 fL
[2021-07-02 12:47] LABS: Hemoglobin A1C 5.6 % (<5.7)
[2021-07-02 12:57] LABS: Magnesium 2.1 mg/dL (1.8-2.4)
[2021-07-02 13:12] LABS: ALT 22 U/L (16-63); AST 14 U/L (15-37); Albumin 3.2 g/dL (3.4-5.0); Alkaline Phosphatase 121 U/L (46-116); BUN 21 mg/dL (7-18); Bilirubin, Total 0.3 mg/dL (0.2-1.0); C-Reactive Protein 2.42 mg/dL (0.0-0.3); CREATININE 0.9 mg/dL (0.70-1.30); Calcium 8.9 mg/dL (8.5-10.1); Chloride 109 mmol/L (98-107); FREE T4 0.66 ng/dL (0.76-1.46); Glucose 102 mg/dL (74-106); Potassium 3.1 mmol/L (3.5-5.1); Sodium 150 mmol/L (136-145); TSH 0.71 uIU/mL (0.36-3.74); Total Protein 6.4 g/dL (6.4-8.2)
[2021-07-02 13:53] LABS: Calculated LDL 84 mg/dL (<100); Cholesterol 124 mg/dL (<200); Ferritin 93 ng/mL (26-388); HDL Cholesterol 27 mg/dL (40-60); Triglyceride 65 mg/dL (<150); Vitamin B12 414 pg/mL (193-986)
[2021-07-02 16:46] LABS: T3,Free 2.2 pg/mL (2.8-5.3)
[2021-07-04 01:29] LABS: Vitamin D 25 Total 30.5 ng/mL (30-100)
== END 2021-07-02 04:39 | disposition home or self-care (01) ==
LOC: LBO 04:39
PROVIDERS: PCP Internal Medicine; Visit Provider Psychiatry & Neurology Psychiatry
DX: F20.9 Schizophrenia, unspecified (principal); Z79.899 Other long term (current) drug therapy
CPT/HCPCS: 36415; 80053; 80061; 82306; 82607; 82728; 83036; 83735; 84439; 84443; 84481; 85025; 86140

== ENCOUNTER 2021-07-18 20:44 | Outpatient (REF) | payer MEDICARE, MEDICAID, SELFPAY ==
[2021-07-18 19:34] LABS: ALT 21 U/L (16-63); AST 10 U/L (15-37); Albumin 3.1 g/dL (3.4-5.0); Alkaline Phosphatase 116 U/L (46-116); Anion Gap 8.7 mmol/L (3-11); BUN 21 mg/dL (7-18); Bilirubin, Total 0.3 mg/dL (0.2-1.0); CO2 29.3 mmol/L (21.0-32.0); CREATININE 0.7 mg/dL (0.70-1.30); Calcium 8.7 mg/dL (8.5-10.1); Chloride 112 mmol/L (98-107); Glucose 98 mg/dL (74-106); Potassium 3.7 mmol/L (3.5-5.1); Sodium 150 mmol/L (136-145); Total Protein 6.3 g/dL (6.4-8.2)
== END 2021-07-18 20:45 | disposition home or self-care (01) ==
LOC: NCHCN 20:44
PROVIDERS: PCP Internal Medicine; Visit Provider Nurse Practitioner Family
DX: D35.00 Benign neoplasm of unspecified adrenal gland (principal); I50.22 Chronic systolic (congestive) heart failure; I48.91 Unspecified atrial fibrillation
CPT/HCPCS: 80053; 82533

== ENCOUNTER 2021-07-30 13:53 | Outpatient (CLI) | payer MEDICARE, MEDICAID, SELFPAY ==
--- NOTE | 2021-07-30 14:00 | RT.EKG_ITS ---
APPROVED REPORT Exam: Resting ECG Reason for Exam: chest pain Patient Location: O HR:82 bpm ECG Measurements Heart Rate 82 AXIS OR [id number] P [id number] QRSd 120 QRS 2 QT 400 T 162 QTc 468 Conclusion Atrial fibrillation...V-rate 64- 92, irreg A-activity Nonspecific intraventricular conduction delay...QRSd >115mS, not LBBB/RBBB Abnormal T,V5 V6 Baseline wander in lead(s) V1,V3
== END 2021-07-30 13:54 | disposition home or self-care (01) ==
LOC: DI.CARD 14:04
PROVIDERS: PCP Internal Medicine; Referring Provider Internal Medicine; Visit Provider Internal Medicine Cardiovascular Disease
DX: R07.9 Chest pain, unspecified (principal)
CPT/HCPCS: 93010

== ENCOUNTER → 2021-07-30 13:53 | Outpatient (BNVA) | payer MEDICARE, MEDICAID, SELFPAY | PROVIDERS: PCP Internal Medicine; Referring Provider Internal Medicine; Visit Provider Internal Medicine Cardiovascular Disease | DX: I42.8 Other cardiomyopathies (principal); I10 Essential (primary) hypertension; I48.21 Permanent atrial fibrillation; G47.33 Obstructive sleep apnea (adult) (pediatric); Z79.01 Long term (current) use of anticoagulants | CPT/HCPCS: 93005; 99203; 99214 ==

== ENCOUNTER 2021-08-15 13:08 | Outpatient (REF) | payer MEDICARE, MEDICAID, SELFPAY ==
[2021-08-15 19:12] LABS: Abs Immature Grans 0.02 10^3/uL (0.0-0.06); Absolute Basophil Count 0.03 10^3/uL (0.0-0.2); Absolute Eosinophil Count 0.04 10^3/uL (0.0-0.7); Absolute Lymphocyte Count 1.49 10^3/uL (1.2-3.4); Absolute Monocyte Count 0.53 10^3/uL (0.1-0.8); Absolute Neutrophil Count 4.67 10^3/uL (1.2-6.7); Basophils % 0.4; Eosinophils % 0.6; HCT 39.5 % (40.0-50.0); Immature Grans % 0.3; MCH 31.1 pg (27.0-33.0); MCHC 32.9 % (32.0-36.0); MCV 94.5 fL (80-95); MPV 10.1 fL (8.0-11.0); Monocytes % 7.8; Neutrophils % 68.9; Nucleated RBC 0 %; Platelet Count 260 10^3/uL (130-400); RBC 4.18 10^6/uL (4.36-5.78); RDW 13.2 % (11.8-14.1); RDW-SD 45.4 fL; WBC 6.78 10^3/uL (4.4-10.8)
[2021-08-15 19:20] LABS: Anion Gap 7.9 mmol/L (3-11); BUN 14 mg/dL (7-18); CO2 31.1 mmol/L (21.0-32.0); CREATININE 0.8 mg/dL (0.70-1.30); Calcium 8.9 mg/dL (8.5-10.1); Chloride 112 mmol/L (98-107); Glucose 91 mg/dL (74-106); Potassium 3.5 mmol/L (3.5-5.1); Sodium 151 mmol/L (136-145)
== END 2021-08-15 13:09 | disposition home or self-care (01) ==
LOC: NCHCN 13:08
PROVIDERS: PCP Nurse Practitioner Family; Visit Provider Nurse Practitioner Family
DX: E87.0 Hyperosmolality and hypernatremia (principal); F31.81 Bipolar II disorder
CPT/HCPCS: 80048; 85025

== ENCOUNTER 2021-08-29 02:57 | Outpatient (CLI) | payer MEDICARE, MEDICAID, SELFPAY ==
[2021-09-01 11:39] LABS: Renin Activity, Plasma <0.6 ng/mL/h
== END 2021-08-29 02:58 | disposition home or self-care (01) ==
LOC: LBO 02:57
PROVIDERS: PCP Nurse Practitioner Family; Visit Provider Nurse Practitioner Family
DX: E87.0 Hyperosmolality and hypernatremia (principal); D35.00 Benign neoplasm of unspecified adrenal gland
CPT/HCPCS: 36415; 82088; 84244

== ENCOUNTER 2021-08-29 13:24 | Outpatient (REF) | payer MEDICARE, MEDICAID, SELFPAY ==
[2021-09-02 12:14] LABS: Urine Volume 500 mL
[2021-09-06 01:39] LABS: Metanephrines, U 58 mcg/24 h; Normetanephrine, U 247 mcg/24 h; Total Metanephrines, U 305 mcg/24 h; Urine Volume 500 mL
== END 2021-08-29 13:25 | disposition home or self-care (01) ==
LOC: LBN 13:24
PROVIDERS: PCP Nurse Practitioner Family; Visit Provider Nurse Practitioner Family
DX: E87.0 Hyperosmolality and hypernatremia (principal)
CPT/HCPCS: 81050; 82384; 83835

== ENCOUNTER 2021-09-09 01:53 | Outpatient (CLI) | payer MEDICARE, MEDICAID, SELFPAY ==
--- NOTE | 2021-09-09 11:30 | DI.RAD_ITS ---
Exam(s) XR LUMBAR SPINE COMPLETE EXAM: XR LUMBAR SPINE COMPLETE CLINICAL HISTORY: BILAT HIP JOINT PAIN M25.551 M25.552. TECHNIQUE: 2D digital imaging was performed. COMPARISON: CT CT CHEST PE ABD PELVIS W from 05/07/[address] CHEST PE ABD PELVIS W from 05/07/2021 FINDINGS: There is no evidence of fracture nor listhesis nor pars defects.. There is a sclerotic bone lesion e vident in L1 vertebral body, as was evident on CT scan of 05/07/2021. This is probably a benign bone . No scoliosis. No prominent disc space narrowing. Mild degenerative changes in the facet joints. Prominent osteophytes in lower thoracic spine. Degenerative changes in the sacroiliac joints, more so on the right side. No ankylosis. IMPRESSION: Mild findings described above. Sclerotic L1 bone lesion is probably benign bone island and was evident on CT scan of 05/07/2021 sign rib DATA REPOSITORY: RADIATION DOSE DELIVERED:
--- NOTE | 2021-09-09 11:30 | DI.RAD_ITS ---
Exam(s) XR HIP PELVIS ADULT BL EXAM: XR HIP PELVIS ADULT BL CLINICAL HISTORY: BILAT HIP JOINT PAIN M25.551 M25.552. TECHNIQUE: 2D digital imaging was performed. COMPARISON: CT CT CHEST PE ABD PELVIS W from 05/07/[address] CHEST PE ABD PELVIS W from 05/07/2021 FINDINGS: There is no evidence of pelvic nor hip fracture. No significant narrowing of the hip joint spaces. However, there are osteophytes off of the medial aspect of the femoral heads, more prominent on the l eft side. There is also calcification adjacent to the greater trochanters both sides. This may be r elated to trochanteric bursitis/tendinitis. These findings were evident on CT scan of the abdomen pe rformed April 2021. Sacroiliac joints exhibit some symmetrical degenerative changes. No ankylosis. IMPRESSION: Degenerative changes in the hips at the level the femoral heads as described. There is no obvious dwight int space narrowing. Calcific tendinitis-bursitis both hips thickening DATA REPOSITORY: RADIATION DOSE DELIVERED:
== END 2021-09-09 02:13 ==
PROVIDERS: PCP Nurse Practitioner Family; Visit Provider Nurse Practitioner Family
DX: M25.551 Pain in right hip (principal); M25.552 Pain in left hip; M47.816 Spondylosis without myelopathy or radiculopathy, lumbar region; M25.78 Osteophyte, vertebrae; M85.9 Disorder of bone density and structure, unspecified
CPT/HCPCS: 73521; 72110

== ENCOUNTER 2021-09-17 12:38 | Outpatient (REF) | payer MEDICARE, MEDICAID, SELFPAY ==
[2021-09-17 20:15] LABS: Abs Immature Grans 0.02 10^3/uL (0.0-0.06); Absolute Basophil Count 0.03 10^3/uL (0.0-0.2); Absolute Eosinophil Count 0.04 10^3/uL (0.0-0.7); Absolute Lymphocyte Count 1.52 10^3/uL (1.2-3.4); Absolute Monocyte Count 0.68 10^3/uL (0.1-0.8); Absolute Neutrophil Count 5.11 10^3/uL (1.2-6.7); Basophils % 0.4; Eosinophils % 0.5; HCT 38.3 % (40.0-50.0); HGB 12.7 g/dL (13.5-17.5); Immature Grans % 0.3; Lymphocytes % 20.5; MCH 31.6 pg (27.0-33.0); MCHC 33.2 % (32.0-36.0); MCV 95.3 fL (80-95); MPV 10.6 fL (8.0-11.0); Monocytes % 9.2; Neutrophils % 69.1; Nucleated RBC 0 %; Platelet Count 221 10^3/uL (130-400); RBC 4.02 10^6/uL (4.36-5.78); RDW-SD 45.4 fL
== END 2021-09-17 12:39 | disposition home or self-care (01) ==
LOC: LBN 12:38
PROVIDERS: PCP Nurse Practitioner Family; Visit Provider Psychiatry & Neurology Psychiatry
DX: F20.9 Schizophrenia, unspecified (principal)
CPT/HCPCS: 85025

== ENCOUNTER 2021-10-15 14:28 | Outpatient (REF) | payer MEDICARE, MEDICAID, SELFPAY ==
[2021-10-15 21:34] LABS: Abs Immature Grans 0.03 10^3/uL (0.0-0.06); Absolute Basophil Count 0.04 10^3/uL (0.0-0.2); Absolute Eosinophil Count 0.03 10^3/uL (0.0-0.7); Absolute Lymphocyte Count 1.36 10^3/uL (1.2-3.4); Absolute Monocyte Count 0.73 10^3/uL (0.1-0.8); Absolute Neutrophil Count 5.37 10^3/uL (1.2-6.7); Basophils % 0.5; Eosinophils % 0.4; HGB 12.7 g/dL (13.5-17.5); Immature Grans % 0.4; MCH 31.8 pg (27.0-33.0); MCHC 32.6 % (32.0-36.0); MCV 97.7 fL (80-95); MPV 10.3 fL (8.0-11.0); Monocytes % 9.7; Nucleated RBC 0 %; Platelet Count 242 10^3/uL (130-400); RBC 3.99 10^6/uL (4.36-5.78); RDW 12.8 % (11.8-14.1); RDW-SD 46.2 fL; WBC 7.56 10^3/uL (4.4-10.8)
[2021-10-15 21:40] LABS: Anion Gap 5.2 mmol/L (3-11); BUN 20 mg/dL (7-18); CO2 32.8 mmol/L (21.0-32.0); CREATININE 0.9 mg/dL (0.70-1.30); Calcium 8.6 mg/dL (8.5-10.1); Chloride 109 mmol/L (98-107); Glucose 98 mg/dL (74-106); Potassium 3.5 mmol/L (3.5-5.1); Sodium 147 mmol/L (136-145)
[2021-10-17 23:48] LABS: Clozapine 181 ng/mL (350-600); Clozapine+Norclozapine Total 268 ng/mL; Norclozapine 87 ng/mL
== END 2021-10-15 14:29 | disposition home or self-care (01) ==
LOC: NCHCN 14:28
PROVIDERS: PCP Nurse Practitioner Family; Visit Provider Nurse Practitioner Family
DX: Z51.81 Encounter for therapeutic drug level monitoring (principal); F31.81 Bipolar II disorder; E87.0 Hyperosmolality and hypernatremia
CPT/HCPCS: 80048; 80159; 85025

== ENCOUNTER 2021-11-18 14:24 | Outpatient (REF) | payer MEDICARE, MEDICAID, SELFPAY ==
[2021-11-18 21:01] LABS: Abs Immature Grans 0.04 10^3/uL (0.0-0.06); Absolute Basophil Count 0.04 10^3/uL (0.0-0.2); Absolute Eosinophil Count 0.07 10^3/uL (0.0-0.7); Absolute Lymphocyte Count 1.87 10^3/uL (1.2-3.4); Absolute Monocyte Count 0.61 10^3/uL (0.1-0.8); Absolute Neutrophil Count 5.26 10^3/uL (1.2-6.7); Basophils % 0.5; Eosinophils % 0.9; HCT 42.9 % (40.0-50.0); HGB 13.9 g/dL (13.5-17.5); Immature Grans % 0.5; Lymphocytes % 23.7; MCH 31.4 pg (27.0-33.0); MCHC 32.4 % (32.0-36.0); MCV 97.1 fL (80-95); MPV 10.5 fL (8.0-11.0); Monocytes % 7.7; Neutrophils % 66.7; Nucleated RBC 0 %; Platelet Count 250 10^3/uL (130-400); RBC 4.42 10^6/uL (4.36-5.78); RDW 13.1 % (11.8-14.1); RDW-SD 46.9 fL; WBC 7.89 10^3/uL (4.4-10.8)
[2021-11-20 23:57] LABS: Clozapine 195 ng/mL (350-600); Clozapine+Norclozapine Total 262 ng/mL; Norclozapine 67 ng/mL
== END 2021-11-18 14:25 | disposition home or self-care (01) ==
LOC: NCHCN 14:24
PROVIDERS: PCP Nurse Practitioner Family; Visit Provider Nurse Practitioner Family
DX: F31.81 Bipolar II disorder (principal); F25.9 Schizoaffective disorder, unspecified; Z51.81 Encounter for therapeutic drug level monitoring; Z79.899 Other long term (current) drug therapy
CPT/HCPCS: 80159; 85025

== ENCOUNTER 2021-12-27 17:15 | Outpatient (REF) | payer MEDICARE, MEDICAID, SELFPAY | END 2021-12-27 17:16 | disposition home or self-care (01) | LOC: NCHCN 17:15 | PROVIDERS: PCP Nurse Practitioner Family; Visit Provider Nurse Practitioner Family ==

== ENCOUNTER 2022-01-13 16:57 | Outpatient (REF) | payer MEDICARE, MEDICAID, SELFPAY ==
[2022-01-13 19:42] LABS: Abs Immature Grans 0.03 10^3/uL (0.0-0.06); Absolute Basophil Count 0.04 10^3/uL (0.0-0.2); Absolute Eosinophil Count 0.05 10^3/uL (0.0-0.7); Absolute Lymphocyte Count 1.87 10^3/uL (1.2-3.4); Absolute Monocyte Count 0.49 10^3/uL (0.1-0.8); Absolute Neutrophil Count 5.39 10^3/uL (1.2-6.7); Basophils % 0.5; Eosinophils % 0.6; HCT 39.7 % (40.0-50.0); HGB 13.2 g/dL (13.5-17.5); Immature Grans % 0.4; Lymphocytes % 23.8; MCHC 33.2 % (32.0-36.0); MCV 96.1 fL (80-95); MPV 10.3 fL (8.0-11.0); Monocytes % 6.2; Neutrophils % 68.5; Nucleated RBC 0 %; Platelet Count 239 10^3/uL (130-400); RBC 4.13 10^6/uL (4.36-5.78); RDW 12.3 % (11.8-14.1); RDW-SD 43.4 fL; WBC 7.87 10^3/uL (4.4-10.8)
== END 2022-01-13 16:58 | disposition home or self-care (01) ==
LOC: NCHCN 16:57
PROVIDERS: PCP Nurse Practitioner Family; Visit Provider Nurse Practitioner Family
DX: Z51.81 Encounter for therapeutic drug level monitoring (principal)
CPT/HCPCS: 85025

== ENCOUNTER → 2022-01-30 12:52 | Outpatient (BNVA) | payer MEDICARE, MEDICAID, SELFPAY | PROVIDERS: PCP Nurse Practitioner Family; Referring Provider Nurse Practitioner Family; Visit Provider Internal Medicine Cardiovascular Disease | DX: I48.91 Unspecified atrial fibrillation (principal); I42.8 Other cardiomyopathies; I10 Essential (primary) hypertension; D35.01 Benign neoplasm of right adrenal gland; G47.33 Obstructive sleep apnea (adult) (pediatric) | CPT/HCPCS: 99214; 99213 ==

== ENCOUNTER 2022-02-10 14:09 | Outpatient (REF) | payer MEDICARE, MEDICAID, SELFPAY | END 2022-02-10 14:10 | disposition home or self-care (01) | LOC: NCHCN 14:09 | PROVIDERS: PCP Nurse Practitioner Family; Visit Provider Internal Medicine ==

== ENCOUNTER 2022-02-10 18:18 | Outpatient (REF) | payer MEDICARE, MEDICAID, SELFPAY ==
[2022-02-10 19:35] LABS: Abs Immature Grans 0.04 10^3/uL (0.0-0.06); Absolute Basophil Count 0.05 10^3/uL (0.0-0.2); Absolute Eosinophil Count 0.05 10^3/uL (0.0-0.7); Absolute Lymphocyte Count 1.61 10^3/uL (1.2-3.4); Absolute Monocyte Count 0.68 10^3/uL (0.1-0.8); Absolute Neutrophil Count 5.68 10^3/uL (1.2-6.7); Basophils % 0.6; Eosinophils % 0.6; HCT 36.4 % (40.0-50.0); Immature Grans % 0.5; Lymphocytes % 19.9; MCH 32.1 pg (27.0-33.0); MCV 97.3 fL (80-95); MPV 10.2 fL (8.0-11.0); Monocytes % 8.4; Platelet Count 230 10^3/uL (130-400); RBC 3.74 10^6/uL (4.36-5.78); RDW 12.6 % (11.8-14.1); RDW-SD 44.5 fL; WBC 8.11 10^3/uL (4.4-10.8)
[2022-02-14 01:11] LABS: Clozapine 244 ng/mL (350-600); Clozapine+Norclozapine Total 335 ng/mL; Norclozapine 91 ng/mL
== END 2022-02-10 18:19 | disposition home or self-care (01) ==
LOC: NCHCN 18:18
PROVIDERS: PCP Nurse Practitioner Family; Visit Provider Internal Medicine
DX: F25.0 Schizoaffective disorder, bipolar type (principal); Z79.899 Other long term (current) drug therapy; Z51.81 Encounter for therapeutic drug level monitoring
CPT/HCPCS: 80159; 85025

== ENCOUNTER 2022-03-02 21:04 | Emergency (ER) | payer MEDICARE, MEDICAID, SELFPAY ==
[2022-03-02 21:09] VITALS: BP 101/65; PULSE 66; RESP 18; TEMP 36.8; O2SAT 95
--- NOTE | 2022-03-02 21:30 | DI.CT_ITS ---
Exam(s) CT HEAD CERVICAL SPINE WO EXAM: CT HEAD CERVICAL SPINE WO CLINICAL HISTORY: fall/pain, on eliquis. TECHNIQUE: Imaging Protocol: Axial computed tomography images with coronal and sagittal reformatted images were created and reviewed COMPARISON: No exams were available for comparison FINDINGS: Head CT Ventricles and Extra axial spaces: Normal in size and morphology for the patient's age. Hemorrhage: None. Cerebral parenchyma: Normal. Midline shift: None. Brainstem/Cerebellum: Normal. Calvarium: Normal. Visualized Paranasal sinuses/Mastoids: For small mucous retention cyst right maxillary sinus. R. Cervical Spine CT BONES: Vertebral body heights are maintained. Alignment is normal. There is no evidence of acute frac ture. Degenerative disc changes and facet degenerative changes are seen . SOFT TISSUES: No paraspinal hematoma. The airway appears intact. No pneumothorax is seen at the lung apices. IMPRESSION: Head CT: No acute abnormality. C-spine CT: Degenerative changes, no acute abnormality. RADIATION DOSE DELIVERED: 1,756.93mGy.cm Total DLP DATA REPOSITORY: All CT scans at this facility are submitted to the National Radiology Data Registry (NRDR) Dose Index Registry (DIR) with the [employer] ([employer]). RADIATION OPTIMIZATION: All CT scans at this facility use at least one of these dose optimization te chniques: automated exposure control; mA and/or kV adjustment per patient size (includes targeted exa ms where dose is matched to clinical indication); or iterative reconstruction.
--- NOTE | 2022-03-02 21:44 | NUR.NOTE ---
c collar placed on pt Nursing Note:
[2022-03-02 22:18] VITALS: RESP 18; O2SAT 98
--- NOTE | 2022-03-02 22:38 | DI.VRAD_ITS ---
PROCEDURE INFORMATION: Exam: CT Head Without Contrast Exam date and time: 03/02/2022 10:15 PM Age: 41 years old Clinical indication: Injury or trauma; Fall; Blunt trauma (contusions or hematomas); Consciousness not specified; Injury date: 03/02/22; Injury details: Booth, pain, on elequis TECHNIQUE: Imaging protocol: Computed tomography of the head without contrast. Radiation optimization: All CT scans at this facility use at least one of these dose optimization techniques: automated exposure control; mA and/or kV adjustment per patient size (includes targeted exams where dose is matched to clinical indication); or iterative reconstruction. COMPARISON: CT CHEST PE ABD PELVIS W 05/07/2021 11:34 PM FINDINGS: Brain: No acute intracranial hemorrhage or extra-axial fluid collection. No evidence of mass effect or midline shift. Pelaez-white matter differentiation is intact. Cerebral ventricles: No ventriculomegaly. Paranasal sinuses: Visualized sinuses are unremarkable. No fluid levels. Mastoid air cells: Unremarkable. Bones/joints: No acute osseus lesion or fracture. Soft tissues: Unremarkable. IMPRESSION: No acute intracranial abnormality. PROCEDURE INFORMATION: Exam: CT Cervical Spine Without Contrast Exam date and time: 03/02/2022 10:15 PM Age: 41 years old Clinical indication: Injury or trauma; Fall; Blunt trauma (contusions or hematomas); Consciousness not specified; Injury date: 03/02/22; Injury details: Booth, pain, on elequis TECHNIQUE: Imaging protocol: Computed tomography images of the cervical spine without contrast. Radiation optimization: All CT scans at this facility use at least one of these dose optimization techniques: automated exposure control; mA and/or kV adjustment per patient size (includes targeted exams where dose is matched to clinical indication); or iterative reconstruction. COMPARISON: CT CHEST PE ABD PELVIS W 05/07/2021 11:34 PM FINDINGS: Bones/joints: Vertebral body heights are maintained. No locked or perched facets. Degenerative ossicles adjacent to the left C5 superior facet. Multilevel facet arthropathy. No acute cervical spine fracture. The dens is intact. Atlanto-axial intervals are normal. Discs/Spinal canal/Neural foramina: Multilevel degenerative changes with intervertebral disc height loss and osteophyte formation, with multilevel areas of mild canal stenosis. Thyroid: 0.8 cm calcification along the inferior pole the left lobe of the thyroid gland. Lungs: Lung apices are clear. Soft tissues: Unremarkable. IMPRESSION: 1. No acute cervical spine fracture. 2. 0.8 cm calcification along the inferior pole the left lobe of the thyroid gland. Recommend further evaluation with nonemergent thyroid ultrasound. 3. Other chronic findings, as above. Dictated and Authenticated by: Chencho Yang MD. Ordering:MICKY Joiner MD
--- NOTE | 2022-03-02 22:48 | W.ED.GENAD ---
Discharge Plan Disposition Patient Disposition: HOME Condition: Stable Discharge Details Clinical Impression: Head injury, Fall, Calcifying cyst of thyroid Primary Care Provider: Myles Contreras ED Provider: Rhys Mosley Home Meds and New Rx's Prescriptions: Continued spironolactone 100 mg tablet 100 mg PO DAILY 0RF torsemide 10 mg tablet 10 mg PO DAILY 0RF clozapine [Clozaril] 100 mg tablet 100 mg PO HS 0RF ibuprofen 600 mg Tablet 600 mg PO TID PRN0RF lisinopril [Zestril] 40 mg Tablet 40 mg PO DAILY 0RF capsaicin [Capzasin-HP] 0.1 % Cream 1 applic TOPICAL BID 0RF clonidine HCl 0.1 mg Tablet 0.1 mg PO BID 0RF carvedilol [Coreg] 25 mg Tablet 25 mg PO BID 0RF potassium chloride 10 mEq Capsule, Extended Release 10 meq PO DAILY 0RF oxcarbazepine [Trileptal] 300 mg Tablet 900 mg PO BID 0RF pantoprazole [Protonix] 40 mg Tablet,Delayed Release (Dr/Ec) 40 mg PO DAILY 0RF benztropine 2 mg Tablet 2 mg PO BID 0RF docusate sodium [Colace] 100 mg Capsule 100 mg PO BID 0RF calcium carbonate 500 mg calcium (1,250 mg) Tablet,Chewable 500 mg PO QID PRN0RF lorazepam [Ativan] 1 mg Tablet 1 mg PO BID PRN0RF Acidophilus Capsule 100 mg PO DAILY 0RF perphenazine 8 mg Tablet 16 mg PO QID 0RF naproxen [Naprosyn] 500 mg Tablet 500 mg PO BID PRN0RF levocarnitine 250 mg Capsule 500 mg PO DAILY 0RF cholecalciferol (vitamin D3) [Vitamin D3] 25 mcg (1,000 unit) Capsule 25 mcg PO DAILY 0RF Eliquis 5 mg Tablet 5 mg PO BID 0RF Jardiance 10 mg Tablet 10 mg PO DAILY 0RF melatonin 3 mg Capsule 6 mg PO HS PRN0RF Discharge Instructions Instructions: Head Injury (ED), Fall Prevention (ED) Additional Instructions: CT imaging of head and neck are unremarkable for any obvious emergent process. It did reveal incidental 0.8 centimeters calcification along the inferior pole of the left lobe thyroid gland, recommend outpatient nonemergent ultrasound. Please watch for new or worsening symptoms and return to the ER for any concerns. Otherwise please contact your primary care provider tomorrow to discuss your ER visit, need for outpatient reevaluation as well as outpatient ultrasound. Discharge Data Discharge Date/Time-TO BE ENTERED AT DEPARTURE: 03/02/22 22:57 Medical Decision Making 41-year-old gentleman who is on Eliquis for A. fib, presents after losing his balance while taking off his shoes, falling forward into a wall denting the drywall. He reports headache and neck pain. Denies any LOC. Clinically he appears well, nontoxic, neurologically intact. Plan is to obtain CT imaging of head and C-spine. Patient and staff are comfortable with this plan and have no additional questions or concerns CT imaging unremarkable for acute process. There is a calcification on the thyroid, recommends outpatient ultrasound Discussed results with patient and staff. Patient remains neurologically intact. Standard discharge and return precautions were provided. Patient understands, is agreeable to this plan, and has no additional questions or concerns upon discharge. This documentation was generated using [employer] system, please disregard any oddities of phrase or misspellings. Medical Records Medical records reviewed: Yes I reviewed the patient's medical records. Imaging Data Radiologic Study: Attestation: I personally reviewed and interpreted this imaging study as follows: Imaging: CT Scan Radiologist's impression: PROCEDURE INFORMATION: Exam: CT Head Without Contrast Exam date and time: 03/02/2022 10:15 PM Age: 41 years old Clinical indication: Injury or trauma; Fall; Blunt trauma (contusions or hematomas); Consciousness not specified; Injury date: 03/02/22; Injury details: Booth, pain, on elequis TECHNIQUE: Imaging protocol: Computed tomography of the head without contrast. Radiation optimization: All CT scans at this facility use at least one of these dose optimization techniques: automated exposure control; mA and/or kV adjustment per patient size (includes targeted exams where dose is matched to clinical indication); or iterative reconstruction. COMPARISON: CT CHEST PE ABD PELVIS W 05/07/2021 11:34 PM FINDINGS: Brain: No acute intracranial hemorrhage or extra-axial fluid collection. No evidence of mass effect or midline shift. Pelaez-white matter differentiation is intact. Cerebral ventricles: No ventriculomegaly. Paranasal sinuses: Visualized sinuses are unremarkable. No fluid levels. Mastoid air cells: Unremarkable. Bones/joints: No acute osseus lesion or fracture. Soft tissues: Unremarkable. IMPRESSION: No acute intracranial abnormality. PROCEDURE INFORMATION:Exam: CT Cervical Spine Without Contrast Exam date and time: 03/02/2022 10:15 PM Age: 41 years old Clinical indication: Injury or trauma; Fall; Blunt trauma (contusions or hematomas); Consciousness not specified; Injury date: 03/02/22; Injury details: Booth, radha, on elequis TECHNIQUE: Imaging protocol: Computed tomography images of the cervical spine without contrast. Radiation optimization: All CT scans at this facility use at least one of these dose optimization techniques: automated exposure control; mA and/or kV adjustment per patient size (includes targeted exams where dose is matched to clinical indication); or iterative reconstruction. COMPARISON: CT CHEST PE ABD PELVIS W 05/07/2021 11:34 PM FINDINGS: Bones/joints: Vertebral body heights are maintained. No locked or perched facets. Degenerative ossicles adjacent to the left C5 superior facet. Multilevel facet arthropathy. No acute cervical spine fracture. The dens is intact. Atlanto-axial intervals are normal. Discs/Spinal canal/Neural foramina: Multilevel degenerative changes with intervertebral disc height loss and osteophyte formation, with multilevel areas of mild canal stenosis. Thyroid: 0.8 cm calcification along the inferior pole the left lobe of the thyroid gland. Lungs: Lung apices are clear. Soft tissues: Unremarkable. IMPRESSION: 1. No acute cervical spine fracture. 2. 0.8 cm calcification along the inferior pole the left lobe of the thyroid gland. Recommend further evaluation with nonemergent thyroid ultrasound. 3. Other chronic findings, as above. [facility] General Mode of arrival: ambulatory. Date/Time Provider Initiated Documentation: 03/02/22 21:22. Limitations to Documentation: no limitations. Information obtained by: patient and family (staff from [facility]). History of Present Illness 41 year old M presents to the emergency department with the chief complaint of head/neck pain, described as moderate, with intensity rated at 5. Quality is described as aching, and is localized to the head and neck. Patient reports no radiation. Patient started experiencing this hour(s) (1) and it has been constant. improves with No relieving factors improve symptom(s), No exacerbating factors reported . Patient notes no other symptoms.. Patient did receive the following treatments prior to arrival, none Related Data Home Medications Medication Instructions Recorded Confirmed Lactobacillus acidophilus 100 mg PO DAILY 05/07/21 03/02/22 (Acidophilus) apixaban 5 mg tablet (Eliquis) 5 mg PO BID 05/07/21 03/02/22 benztropine 2 mg tablet 2 mg PO BID 05/07/21 03/02/22 calcium carbonate 500 mg calcium 500 mg PO QID PRN 05/07/21 03/02/22 (1,250 mg) chewable tablet carvedilol 25 mg tablet (Coreg) 25 mg PO BID 05/07/21 03/02/22 cholecalciferol (vitamin D3) 25 25 mcg PO DAILY 05/07/21 03/02/22 mcg (1,000 unit) capsule (Vitamin D3) docusate sodium 100 mg capsule 100 mg PO BID 05/07/21 03/02/22 (Colace) empagliflozin 10 mg tablet 10 mg PO DAILY 05/07/21 03/02/22 (Jardiance) levocarnitine 250 mg capsule 500 mg PO DAILY 05/07/21 03/02/22 lorazepam 1 mg tablet (Ativan) 1 mg PO BID PRN 05/07/21 03/02/22 melatonin 3 mg capsule 6 mg PO HS PRN 05/07/21 03/02/22 naproxen 500 mg tablet (Naprosyn) 500 mg PO BID PRN 05/07/21 03/02/22 oxcarbazepine 300 mg tablet 900 mg PO BID 05/07/21 03/02/22 (Trileptal) pantoprazole 40 mg tablet,delayed 40 mg PO DAILY 05/07/21 03/02/22 release (Protonix) perphenazine 8 mg tablet 16 mg PO QID 05/07/21 03/02/22 potassium chloride 10 mEq 10 meq PO DAILY 05/07/21 03/02/22 capsule,extended release capsaicin 0.1 % topical cream 1 applic TOPICAL BID 05/11/21 03/02/22 (Capzasin-HP) clonidine HCl 0.1 mg tablet 0.1 mg PO BID 05/11/21 03/02/22 ibuprofen 600 mg tablet 600 mg PO TID PRN 05/11/21 03/02/22 lisinopril 40 mg tablet (Zestril) 40 mg PO DAILY 05/11/21 03/02/22 clozapine 100 mg tablet (Clozaril) 100 mg PO HS tab 08/23/21 03/02/22 spironolactone 100 mg tablet 100 mg PO DAILY 08/23/21 03/02/22 torsemide 10 mg tablet 10 mg PO DAILY 08/23/21 03/02/22 Allergies Allergy/AdvReac Type Severity Reaction Status Date / Time latex Allergy Severe Verified 03/02/22 21:18 divalproex sodium Allergy Verified 03/02/22 21:18 [From Depakote] General Stated Complaint: HeadInjury CONNER: 3 Review of Systems Constitutional Constitutional: Denies fever(s), Reports headache(s) and Denies weakness Eyes Eyes: Denies change in vision ENT Ears, Nose, Mouth, and Throat: Reports headache(s) and Denies neck pain Cardiovascular Cardiovascular: Denies chest pain and Denies dyspnea Respiratory Respiratory: Denies dyspnea Gastrointestinal Gastrointestinal: Denies abdominal pain, Denies nausea and Denies vomiting Musculoskeletal Musculoskeletal: Denies back pain, Denies neck pain, Denies numbness and Denies tingling Integumentary/Breasts Skin/Breast: Denies rash Neurologic Neurologic: Reports headache(s), Denies numbness, Denies tingling and Denies weakness Hematologic/Lymphatic Hematologic/Lymphatic: Reports easy bleeding and Reports easy bruising PFSH All Active Problems (Updated 03/02/22 @ 22:50 by TRIP Herrera) Head injury (Acute) Fall (Acute) Calcifying cyst of thyroid (Acute) Atrial fibrillation (Chronic) Hepatomegaly (Acute) 03/24/21 RUQ us suspected mildly micronodular hepatic contour possibly representing early cirrhosis [facility] Non-ischemic cardiomyopathy (Acute) Bipolar disorder (Acute) type 2 HTN (hypertension) with goal to be determined (Acute) Pulmonary emboli (Chronic) Immunosuppression (Acute) Adenoma of right adrenal gland (Acute) Psoriatic arthritis (Acute) Psoriasis, unspecified (Chronic) GERD (gastroesophageal reflux disease) (Chronic) Obesity (Chronic) RUTH (obstructive sleep apnea) (Chronic) hypoventilation on bipap [facility] 07/10/21 Schizoaffective disorder (Acute) Atrial fibrillation with RVR (Acute) Chest pain (Acute) Abdominal pain (Acute) Social History Smoking/Tobacco Use Status: Never Smoking risk assessment performed?: Yes Alcohol Intake: former Drug use: Never Substance use type: does not use Do you feel safe at home: Yes Do you feel safe in your relationship?: Yes Exam Const General: cooperative, healthy appearing, comfortable and no acute distress Orientation: alert, awake and oriented x3 [facility] Head: normocephalic Head images: 1. Abrasion Ears: external ears normal, TM's normal bilaterally and EAC's normal Face and sinus: normal facial exam Mouth: moist mucous membranes Eyes General: appearance normal, both eyes and all related structures Alignment and Position: alignment normal Periorbital: periorbital findings normal Eyelids: eyelids normal Conjunctivae: conjunctivae normal Sclera: sclerae normal Cornea: corneas normal Pupils: PERRL EOM: EOM intact bilaterally Direct ophthalmoscopy: normal light reflex Neck Neck: normal visual inspection, trachea midline, supple and tender (Diffuse, mild, posterior, in hard c-collar) Resp Effort & Inspection: normal respiratory effort and able to speak in complete sentences GI Palpation: soft and nontender Back/Spine/Pelvis Back: No back tenderness Skin General skin exam: no rashes or lesions noted Neuro General: patient alert, patient awake, patient oriented x3, moves all extremities and no focal motor deficits Cognition: normal cognition Speech: speech normal Gait: normal gait Motor: muscle tone normal throughout Sensory Exam: no sensory deficits noted Extrem General: normal to inspection, full ROM and capillary refill normal Psych Appearance: grossly normal Mental Status: mental status grossly normal Course Vital Signs Vital signs: Vital Signs Temperature 36.8 C 03/02/22 21:09 Pulse 66 03/02/22 21:09 Respiratory Rate 18 03/02/22 21:09 Blood Pressure 101/65 03/02/22 21:09 Pulse Oximetry 95 03/02/22 21:09 Temperature 36.8 C 03/02/22 21:09 Temperature Source Tympanic 03/02/22 21:09 Pulse 66 03/02/22 21:09 Respiratory Rate 18 03/02/22 22:18 Respiratory Effort 03/02/22 22:18 Respiratory Depth Normal 03/02/22 22:18 Respiratory Pattern Normal 03/02/22 22:18 Blood Pressure 101/65 03/02/22 21:09 Blood Pressure Position Sitting 05/08/22 21:09 Pulse Oximetry 98 03/02/22 22:18 Oxygen Delivery Method Room Air 03/02/22 22:18 Oxygen Flow Rate 0 03/02/22 22:18 Pain Level 6 03/02/22 21:09
[2022-03-02 23:01] VITALS: PULSE 71; RESP 18; O2SAT 99
== END 2022-03-02 22:57 | disposition home or self-care (01) ==
PROVIDERS: Emergency Provider Physician Assistant; PCP Internal Medicine
DX: S09.8XXA Other specified injuries of head, initial encounter (principal); W18.39XA Other fall on same level, initial encounter; E04.1 Nontoxic single thyroid nodule
CPT/HCPCS: 99284; 70450; 72125; 99283

== ENCOUNTER 2022-03-06 09:50 | Emergency (ER) | payer MEDICARE, MEDICAID, SELFPAY ==
--- NOTE | 2022-03-06 09:30 | RT.EKG_ITS ---
APPROVED REPORT Exam: Resting ECG Reason for Exam: Chest Pain Patient Location: E HR:62 bpm ECG Measurements Heart Rate 62 AXIS MN [id number] P [id number] QRSd 125 QRS 21 QT 427 T 163 QTc 436 Conclusion Atrial fibrillation...V-rate 54- 82, irreg A-activity Nonspecific intraventricular conduction delay...QRSd >115mS, not LBBB/RBBB. Afib. No STEMI. No significant change compared to previous EKG. I have reviewed and interpreted ECG and agree with software generated interpretation.
[2022-03-06 09:42] VITALS: BP 107/54; PULSE 65; RESP 12; TEMP 36.3; O2SAT 96
--- NOTE | 2022-03-06 09:52 | W.ED.GENAD ---
Discharge Plan Disposition Patient Disposition: HOME Condition: Improving Discharge Details Clinical Impression: Chest pain, Pain in right testicle Primary Care Provider: Myles Contreras ED Provider: Rhys Mosley Home Meds and New Rx's Prescriptions: Continued spironolactone 100 mg tablet 100 mg PO DAILY torsemide 10 mg tablet 10 mg PO DAILY clozapine [Clozaril] 100 mg tablet 200 mg PO HS ibuprofen 600 mg Tablet 600 mg PO TID PRN lisinopril [Zestril] 40 mg Tablet 40 mg PO DAILY capsaicin [Capzasin-HP] 0.1 % Cream 1 applic TOPICAL BID PRN lorazepam 1 mg Tablet 1 mg PO DAILY PRN carvedilol [Coreg] 25 mg Tablet 25 mg PO BID oxcarbazepine [Trileptal] 300 mg Tablet 900 mg PO BID pantoprazole [Protonix] 40 mg Tablet,Delayed Release (Dr/Ec) 40 mg PO DAILY benztropine 2 mg Tablet 2 mg PO BID docusate sodium [Colace] 100 mg Capsule 100 mg PO BID calcium carbonate 500 mg calcium (1,250 mg) Tablet,Chewable 500 mg PO QID PRN lorazepam [Ativan] 1 mg Tablet 1 mg PO BID Acidophilus Capsule 100 mg PO DAILY perphenazine 8 mg Tablet 16 mg PO QID naproxen [Naprosyn] 500 mg Tablet 500 mg PO BID PRN levocarnitine 250 mg Capsule 500 mg PO DAILY cholecalciferol (vitamin D3) [Vitamin D3] 25 mcg (1,000 unit) Capsule 25 mcg PO DAILY Eliquis 5 mg Tablet 5 mg PO BID Jardiance 10 mg Tablet 10 mg PO DAILY melatonin 3 mg Capsule 6 mg PO HS Discharge Instructions Additional Instructions: Work-up in the ER does not reveal any obvious emergent process. [id number] Tylenol as directed for discomfort. Cool compresses as tolerated. You may want to wear more supportive underwear as this may improve your symptoms. Please watch for new or worsening symptoms and return to the ER for any concerns. Please have your outpatient echocardiogram as scheduled on March 27. Lastly, I recommend contacting your primary care provider tomorrow to discuss your ER visit, ongoing symptoms, need for outpatient reevaluation. Medical Decision Making This is a 41-year-old male with a past medical history of A. fib, nonischemic cardiomyopathy, bipolar, hypertension, PE, GERD, obesity, schizoaffective disorder, anticoagulated, presenting after he pinched his scrotum and right testicle in a shower chair. Subsequently developed chest pain on the way to the ER wondering if we can expedite his echocardiogram. Clinically he appears well, nontoxic. Plan is to obtain a scrotal ultrasound given the scrotal-testicular injury and will then initiate a cardiac work-up. Patient is already anticoagulated, pulse in the 60s, O2 sat 96% on room air, extremely low suspicion for acute PE. Given his overall presentation low suspicion for ACS. I do wonder if there is a component of anxiety given his testicular injury Laboratory values do not reveal any obvious emergent process. Initial troponin is less than 50. His BNP is 1475 and unfortunately do not have baseline; however, clinically there is no evidence of CHF. Chest x-ray is unremarkable. No pedal edema. Lungs are clear to auscultation with an O2 sat in the mid to high 90s. Patient already takes spironolactone and torsemide Scrotal ultrasound reveals a hydrocele otherwise unremarkable. Patient is agreeable to awaiting a delta troponin. Will give 1 g p.o. Tylenol. Upon reevaluation patient appears well, nontoxic, remains hemodynamically stable. His chest pain has resolved completely and reports that his testicular pain has resolved almost completely. Delta troponin remains less than 50. Standard discharge and return precautions were provided. Patient understands, is agreeable to this plan, and has no additional questions or concerns upon discharge. This documentation was generated using [employer] system, please disregard any oddities of phrase or misspellings. Medical Records Medical records reviewed: Yes I reviewed the patient's medical records. Imaging Data Radiologic Study: Attestation: I personally reviewed and interpreted this imaging study as follows: Imaging: X-Ray Radiologist's impression: Exam(s) XR CHEST 2V PA LATERAL EXAM: XR CHEST 2V PA LATERAL CLINICAL HISTORY: L sided chest pain TECHNIQUE: 2D digital imaging was performed. COMPARISON: CR,XR XR CHEST 2V PA LATERAL from 05/07/2021 FINDINGS: The heart is not enlarged. The lungs are clear and well expanded. No pleural effusion seen. Mediastinal contours appear intact. IMPRESSION: Normal chest. Radiologic Study #2: Attestation: I personally reviewed and interpreted this imaging study as follows: Imaging: Ultrasound Radiologist's impression: Exam(s) US SCROTUM EXAM: US SCROTUM CLINICAL HISTORY: pinched testicle in chair TECHNIQUE: Ultrasound performed using standard protocol. COMPARISON: No exams were available for comparison FINDINGS: Scrotal ultrasound was performed according to the usual protocol. The testes are unremarkable in appearance with normal intra testicular vascular flow on Doppler evaluation and homogeneous echotexture. No evidence of hematoma or mass of the testes. There is tiny right hydrocele. No left hydrocele. No varicocele. Epididymi are unremarkable in appearance. IMPRESSION: Negative scrotal ultrasound except for minimal right hydrocele. Lab Data Lab results reviewed: Yes I reviewed the patient's lab results. Labs: Laboratory Tests Range/Units 03/06/22 03/06/22 03/06/22 10:06 10:15 10:15 WBC (4.4-10.8) 10^3/uL 8.70 RBC (4.36-5.78) 10^6/uL 4.40 Hgb (13.5-17.5) g/dL 14.1 Hct (40.0-50.0) % 42.9 MCV (80-95) fL 98 H MCH (27.0-33.0) pg 32.0 MCHC (32.0-36.0) % 32.9 RDW (11.8-14.1) % 12.7 Plt Count (130-400) 10^3/uL 218 MPV (8.0-11.0) fL 9.3 Immature Gran % 0.3 Neutrophils % 72.9 Lymphocytes % 18.4 Monocytes % 7.9 Eosinophils % 0.2 Basophils % 0.3 Nucleated RBC % (0.0-0.3) % 0.0 Absolute Neutrophils (1.2-6.7) 10^3/uL 6.33 Absolute Lymphocytes (1.2-3.4) 10^3/uL 1.60 Absolute Monocytes (0.1-0.8) 10^3/uL 0.69 Absolute Eosinophils (0.0-0.7) 10^3/uL 0.02 Absolute Basophils (0.0-0.2) 10^3/uL 0.03 Sodium (136-145) mmol/L 149 H Potassium (3.5-5.1) mmol/L 3.6 Chloride (98-107) mmol/L 110 H Carbon Dioxide (21.0-32.0) mmol/L 31.8 Anion Gap (3-11) mmol/L 7.2 BUN (7-18) mg/dL 15 Creatinine (0.70-1.30) mg/dL 0.9 Estimated GFR/1.73 m2 (mL/min/1.73m2) >= 60.00 Glucose (74-106) mg/dL 86 Calcium (8.5-10.1) mg/dL 8.6 Magnesium Cancelled 2.4 Total Bilirubin (0.2-1.0) mg/dL 0.3 AST (15-37) U/L 10 L ALT (16-63) U/L 21 Alkaline Phosphatase (46-116) U/L 114 Troponin I (<or=60) ng/L < 50 NT-Pro-B Natriuret Pep Cancelled 1475 H Total Protein (6.4-8.2) g/dL 7.4 Albumin (3.4-5.0) g/dL 3.6 Range/Units 03/06/22 13:22 WBC (4.4-10.8) 10^3/uL RBC (4.36-5.78) 10^6/uL Hgb (13.5-17.5) g/dL Hct (40.0-50.0) % MCV (80-95) fL MCH (27.0-33.0) pg MCHC (32.0-36.0) % RDW (11.8-14.1) % Plt Count (130-400) 10^3/uL MPV (8.0-11.0) fL Immature Gran % Neutrophils % Lymphocytes % Monocytes % Eosinophils % Basophils % Nucleated RBC % (0.0-0.3) % Absolute Neutrophils (1.2-6.7) 10^3/uL Absolute Lymphocytes (1.2-3.4) 10^3/uL Absolute Monocytes (0.1-0.8) 10^3/uL Absolute Eosinophils (0.0-0.7) 10^3/uL Absolute Basophils (0.0-0.2) 10^3/uL Sodium (136-145) mmol/L Potassium (3.5-5.1) mmol/L Chloride (98-107) mmol/L Carbon Dioxide (21.0-32.0) mmol/L Anion Gap (3-11) mmol/L BUN (7-18) mg/dL Creatinine (0.70-1.30) mg/dL Estimated GFR/1.73 m2 (mL/min/1.73m2) Glucose (74-106) mg/dL Calcium (8.5-10.1) mg/dL Magnesium Total Bilirubin (0.2-1.0) mg/dL AST (15-37) U/L ALT (16-63) U/L Alkaline Phosphatase (46-116) U/L Troponin I (<or=60) ng/L < 50 NT-Pro-B Natriuret Pep Total Protein (6.4-8.2) g/dL Albumin (3.4-5.0) g/dL ECG Data Attestation: I personally reviewed and interpreted this ECG (s) as follows: Interpretation: Please see official report by Dr. Britt. Fco mendoza, ventricular rate of 62. Nonspecific intraventricular conduction delay. No STEMI HPI General Mode of arrival: EMS. Date/Time Provider Initiated Documentation: 03/06/22 09:52. Limitations to Documentation: no limitations. Information obtained by: patient and EMS. HPI Narrative: This is a 41-year-old male, past medical history of A. kelly, anticoagulated, nonischemic cardiomyopathy, bipolar disorder, hypertension, PE, GERD, obesity, schizoaffective disorder, presents to the ER today via EMS after getting his right testicle and scrotum squished-stuck in a shower chair. He reports this lasted probably for about 45 minutes until EMS came and was able to help remove his testicle from the chair. He reports that the pain overall in his testicle is improving but still reports mild to moderate pain. He was asymptomatic prior to the injury. He reports that on the way to the ER in the ambulance he developed left-sided chest pressure, diffuse, 3 out of 10, does not radiate anywhere. He tells me that he is scheduled for an outpatient echocardiogram the first week of March but wonders seem he developed chest pain today if he can have this done while he is here in the ER. He denies any headache, visual change, neck pain, fever, shortness of breath, cough, abdominal pain, nausea, vomiting, dysuria, hematuria, back pain, pain or swelling in his legs. He has not taken any medication today for his symptoms. Related Data Home Medications Medication Instructions Recorded Confirmed Lactobacillus acidophilus 100 mg PO DAILY 05/07/21 03/06/22 (Acidophilus) apixaban 5 mg tablet (Eliquis) 5 mg PO BID 05/07/21 03/06/22 benztropine 2 mg tablet 2 mg PO BID 05/07/21 03/06/22 calcium carbonate 500 mg calcium 500 mg PO QID PRN 05/07/21 03/06/22 (1,250 mg) chewable tablet carvedilol 25 mg tablet (Coreg) 25 mg PO BID 05/07/21 03/06/22 cholecalciferol (vitamin D3) 25 25 mcg PO DAILY 05/07/21 03/06/22 mcg (1,000 unit) capsule (Vitamin D3) docusate sodium 100 mg capsule 100 mg PO BID 05/07/21 03/06/22 (Colace) empagliflozin 10 mg tablet 10 mg PO DAILY 05/07/21 03/06/22 (Jardiance) levocarnitine 250 mg capsule 500 mg PO DAILY 05/07/21 03/06/22 lorazepam 1 mg tablet (Ativan) 1 mg PO BID 05/07/21 03/06/22 melatonin 3 mg capsule 6 mg PO HS 05/07/21 03/06/22 naproxen 500 mg tablet (Naprosyn) 500 mg PO BID PRN 05/07/21 03/06/22 oxcarbazepine 300 mg tablet 900 mg PO BID 05/07/21 03/06/22 (Trileptal) pantoprazole 40 mg tablet,delayed 40 mg PO DAILY 05/07/21 03/06/22 release (Protonix) perphenazine 8 mg tablet 16 mg PO QID 05/07/21 03/06/22 capsaicin 0.1 % topical cream 1 applic topical BID PRN 05/11/21 03/06/22 (Capzasin-HP) ibuprofen 600 mg tablet 600 mg PO TID PRN 05/11/21 03/06/22 lisinopril 40 mg tablet (Zestril) 40 mg PO DAILY 05/11/21 03/06/22 clozapine 100 mg tablet (Clozaril) 200 mg PO HS 08/23/21 03/06/22 spironolactone 100 mg tablet 100 mg PO DAILY 08/23/21 03/06/22 torsemide 10 mg tablet 10 mg PO DAILY 08/23/21 03/06/22 lorazepam 1 mg tablet 1 mg PO DAILY PRN 03/06/22 03/06/22 Allergies Allergy/AdvReac Type Severity Reaction Status Date / Time latex Allergy Severe rash, Verified 03/06/22 10:13 difficulty breathing divalproex sodium AdvReac [place] Verified 03/06/22 10:13 [From Depakote] levels too high General CONNER: 3 Review of Systems Constitutional Constitutional: Denies fever(s) and Denies headache(s) Eyes Eyes: Denies change in vision ENT Ears, Nose, Mouth, and Throat: Denies headache(s) and Denies neck pain Cardiovascular Cardiovascular: Reports chest pain and Denies dyspnea Respiratory Respiratory: Denies cough and Denies dyspnea Gastrointestinal Gastrointestinal: Denies abdominal pain, Denies diarrhea, Denies nausea and Denies vomiting Genitourinary Genitourinary: Denies hematuria, Denies dysuria and Reports testicular pain Musculoskeletal Musculoskeletal: Denies back pain and Denies neck pain Integumentary/Breasts Skin/Breast: Denies rash Neurologic Neurologic: Denies headache(s) Hematologic/Lymphatic Hematologic/Lymphatic: Reports easy bleeding and Reports easy bruising PFSH All Active Problems (Updated 03/06/22 @ 13:34 by TRIP Herrera) Head injury (Acute) Fall (Acute) Calcifying cyst of thyroid (Acute) Chest pain (Acute) Pain in right testicle (Acute) Atrial fibrillation (Chronic) Hepatomegaly (Acute) 03/24/21 RUQ us suspected mildly micronodular hepatic contour possibly representing early cirrhosis [facility] Non-ischemic cardiomyopathy (Acute) Bipolar disorder (Acute) type 2 HTN (hypertension) with goal to be determined (Acute) Pulmonary emboli (Chronic) Immunosuppression (Acute) Adenoma of right adrenal gland (Acute) Psoriatic arthritis (Acute) Psoriasis, unspecified (Chronic) GERD (gastroesophageal reflux disease) (Chronic) Obesity (Chronic) RUTH (obstructive sleep apnea) (Chronic) hypoventilation on bipap [facility] 07/10/21 Schizoaffective disorder (Acute) Atrial fibrillation with RVR (Acute) Chest pain (Acute) Abdominal pain (Acute) Social History Smoking/Tobacco Use Status: Never Smoking risk assessment performed?: Yes Alcohol Intake: former Drug use: Never Substance use type: does not use Do you feel safe at home: Yes Do you feel safe in your relationship?: Yes Exam Const General: cooperative, healthy appearing, comfortable and no acute distress Orientation: alert and awake [facility] Head: normal to inspection, normocephalic and atraumatic Face and sinus: normal facial exam Mouth: moist mucous membranes Eyes General: appearance normal, both eyes and all related structures Conjunctivae: conjunctivae normal Neck Neck: normal visual inspection, full ROM, trachea midline and supple Resp Effort & Inspection: normal respiratory effort and able to speak in complete sentences Auscultation: clear to auscultation bilaterally Cardio Rate: regular rate Rhythm: abnormal rhythm irregularly irregular GI Inspection: normal to inspection Palpation: soft, not firm, no guarding, no pulsatile masses and nontender Male General Exam: Yes normal external exam Penis: normal penis Meatus: meatus normal Scrotum: scrotum normal Testes: testicular lie normal and testicular tenderness on the right (Diffuse, mild) Back/Spine/Pelvis Back: No back tenderness Skin General skin exam: no rashes or lesions noted Neuro General: patient alert, patient awake, moves all extremities and no focal motor deficits Cognition: normal cognition Speech: speech normal Motor: muscle tone normal throughout Sensory Exam: no sensory deficits noted Extrem General: normal to inspection, full ROM, capillary refill normal, no pedal edema and no calf tenderness Psych Appearance: grossly normal Mental Status: mental status grossly normal
--- NOTE | 2022-03-06 10:00 | DI.RAD_ITS ---
Exam(s) XR CHEST 2V PA LATERAL EXAM: XR CHEST 2V PA LATERAL CLINICAL HISTORY: L sided chest pain TECHNIQUE: 2D digital imaging was performed. COMPARISON: CR,XR XR CHEST 2V PA LATERAL from 05/07/2021 FINDINGS: The heart is not enlarged. The lungs are clear and well expanded. No pleural effusion seen. Mediastin al contours appear intact. IMPRESSION: Normal chest. RADIATION DOSE DELIVERED: Total DLP
--- NOTE | 2022-03-06 10:00 | DI.US_ITS ---
Exam(s) US SCROTUM EXAM: US SCROTUM CLINICAL HISTORY: pinched testicle in chair TECHNIQUE: Ultrasound performed using standard protocol. COMPARISON: No exams were available for comparison FINDINGS: Scrotal ultrasound was performed according to the usual protocol. The testes are unremarkable in lenard earance with normal intra testicular vascular flow on Doppler evaluation and homogeneous echotexture. No evidence of hematoma or mass of the testes. There is tiny right hydrocele. No left hydrocele. No varicocele. Epididymi are unremarkable in lenard earance. IMPRESSION: Negative scrotal ultrasound except for minimal right hydrocele. DATA REPOSITORY:
[2022-03-06 10:05] VITALS: RESP 11
[2022-03-06 10:23] LABS: Abs Immature Grans 0.03 10^3/uL (0.0-0.06); Absolute Basophil Count 0.03 10^3/uL (0.0-0.2); Absolute Eosinophil Count 0.02 10^3/uL (0.0-0.7); Absolute Monocyte Count 0.69 10^3/uL (0.1-0.8); Absolute Neutrophil Count 6.33 10^3/uL (1.2-6.7); Basophils % 0.3; Eosinophils % 0.2; HCT 42.9 % (40.0-50.0); HGB 14.1 g/dL (13.5-17.5); Immature Grans % 0.3; Lymphocytes % 18.4; MCHC 32.9 % (32.0-36.0); MCV 98 fL (80-95); MPV 9.3 fL (8.0-11.0); Monocytes % 7.9; Neutrophils % 72.9; Platelet Count 218 10^3/uL (130-400); RDW 12.7 % (11.8-14.1); RDW-SD 45.7 fL
[2022-03-06 10:43] LABS: ALT 21 U/L (16-63); AST 10 U/L (15-37); Albumin 3.6 g/dL (3.4-5.0); Alkaline Phosphatase 114 U/L (46-116); Anion Gap 7.2 mmol/L (3-11); BUN 15 mg/dL (7-18); Bilirubin, Total 0.3 mg/dL (0.2-1.0); CO2 31.8 mmol/L (21.0-32.0); CREATININE 0.9 mg/dL (0.70-1.30); Calcium 8.6 mg/dL (8.5-10.1); Chloride 110 mmol/L (98-107); Glucose 86 mg/dL (74-106); Magnesium 2.4 mg/dL (1.8-2.4); NT-proBNP 1475 pg/mL (<300); Potassium 3.6 mmol/L (3.5-5.1); Sodium 149 mmol/L (136-145); Total Protein 7.4 g/dL (6.4-8.2); Troponin I < 50 ng/L (<or=60)
[2022-03-06] MEDS: Acetaminophen 500 MG TAB 1000 MG PO (12:09)
[2022-03-06 13:12] VITALS: BP 114/88; PULSE 77; RESP 17; TEMP 36.4; O2SAT 93
[2022-03-06 13:44] LABS: Troponin I < 50 ng/L (<or=60)
[2022-03-06 14:18] VITALS: BP 114/88; PULSE 77; RESP 17; TEMP 36.4; O2SAT 93
== END 2022-03-06 14:13 | disposition home or self-care (01) ==
PROVIDERS: Emergency Provider Physician Assistant; PCP Internal Medicine
DX: N50.811 Right testicular pain (principal); W23.0XXA Caught, crushed, jammed, or pinched between moving objects, initial encounter; R07.9 Chest pain, unspecified
CPT/HCPCS: 36415; 80053; 93005; 99284; 71046; 76870; 83735; 83880; 84484; 85025; 93010

== ENCOUNTER → 2022-03-27 01:19 | Outpatient (CLI) | payer MEDICARE, MEDICAID, SELFPAY ==
--- NOTE | 2022-03-27 07:15 | DI.US_ITS ---
APPROVED REPORT EXAM: Comprehensive 2D, Doppler, and color-flow Echocardiogram Patient Location: Out-Patient Horseshoer: Malgorzata Botello RDCS (AE) Indications: Chest pain, Cardiomyopathy Other Information Study Quality: Fair. Technically limited study due to body habitus, inability to position patient. Conclusion The left ventricle is mildly to moderately dilated. Estimated ejection fraction is 30 to 35%. There is global hypokinesis. Wall thickness is normal The right ventricle is moderately dilated and appears mildly hypocontractile Both atria are moderately enlarged There are no structural or hemodynamically significant valvular abnormalities Estimated right ventricular systolic pressure is 25 mmHg Wall motion Left Ventricle Left ventricle is mild to moderately dilated. Left ventricular systolic function is moderately decrea sed. There is normal left ventricular wall thickness. There is global hypokinesis of the left ventric le. There is no ventricular septal defect visualized. LVEF is 30-35%. Right Ventricle Right ventricle is moderately dilated. Right ventricle is mildly hypokinetic. The RVSP is 25.5 mmHg. Atria Left atrium is moderately dilated. Right atrium is moderately dilated. The interatrial septum is inta ct with no evidence for an atrial septal defect. Aortic Valve The aortic valve is normal in structure. Aortic valve is trileaflet. There is no aortic valvular sten osis. No aortic regurgitation is present. Mitral Valve The mitral valve is normal in structure. No evidence of mitral valve stenosis. Trace to mild mitral r egurgitation. Tricuspid Valve The tricuspid valve is normal in structure. There is no tricuspid valve stenosis. Mild tricuspid regu rgitation. Pulmonic Valve The pulmonary valve is normal in structure. There is no pulmonic valvular stenosis. Trace pulmonic re gurgitation. Great Vessels The aortic root is normal in size. The ascending aorta is normal in size. Aortic arch is normal in ca liber. IVC is normal in size and collapses >50% with inspiration. Pericardium There is no pericardial effusion. 2D Dimensions IVSD d PLAX 1.03 cm M: 0.6-1.2 LV Vol A2C d MOD 222.8 mL LVPW d PLAX 1.03 cm M: 0.6 - 1.2 LV Vol A4C d MOD 202.4 mL LVID d PLAX 6.48 cm M: 4.2 - 5.8 LA vol/ BSA A2C s A-L 42.3 mL/m2 LVDs 5.35 cm M: 2.5 - 4.0 LA vol/ BSA A4C s A-L 32.5 mL/m2 Ao Root d 3.13 cm M: 3.1 - 3.7 LA Vol/ BSA Biplane s A-L 39.6 mL/m2 RA Area A4C 24.05 cm2 LA Area A4C s MOD 25.90 cm2 RA Vol/ BSA A4C s A-L 30.6 mL/m2 LA Area A2C s MOD 27.68 cm2 Ao Asc Diam d 3.14 cm M: 2.6 - 3.4 LV EF A4C MOD 30.3 % LV EF Teichholz 35.3 % LV EF A2C MOD 35.1 % LVEF (Brand's) 31.92 % M: 52 - 72 LV EF Biplane MOD 31.9 % LV Volume 149.50 mL M: 62 - 150 SV 68.75 mL LV Volume Index 58.17 mL/m2 M: 34 - 74 SV Index 26.70 mL/m2 LV Vol Biplane MOD 215.3 mL FS 17.30 % M-Mode TAPSE 1.83 cm (M/F) >1.7 LV Diastology MV E' medial 0.097 (>0.07 m/s) MV E Vmax 0.83 (0.4-1.3 m/s) LV E/e MED 8.55 (<14) MV E' lateral 0.086 (>0.1 m/s) LV E/e LAT 9.60 (<14) MV E/E' medial 8.57 MV E/E' lateral 9.62 Aortic Valve LVOT Area 4.09 cm2 AoV Area Vmax 3.36 cm2 LVOT Vmax 0.88 m/s AoV Area/ BSA (Vmax) 1.31 cm2/m2 LVOT Mean Adam. 0.58 m/s CHEVY Mean Adam. 2.93 cm2 LVOT Peak Grad 3.1 mmHg CHEVY Mean Adam. Index 1.14 cm2/m2 LVOT Mean Grad 1.6 mmHg LVOT VTI 0.188 m LVOT Diam s 2.25 cm AoV Vmax 1.08 m/s Velocity Ratio 0.81 AoV Mean Adam. 0.81 m/s AoV Peak Grad 4.6 mmHg LVOT SV 76.86 mL AoV Mean Grad 2.8 mmHg AoV VTI 0.203 m AoV Area VTI 3.78 cm2 AoV Area/ BSA (VTI) 1.47 cm/m2 Mitral Valve MV DT 189 (160-240 msec) MV PHT 55 msec MV Area PHT 4.00 cm2 MV VTI 0.242 m MV Area VTI 3.18 (4.0-6.0 cm2) Pulmonary Valve PV Vmax 0.76 (0.5-1.5 m/s) RVOT Peak Gr. 1.23 mmHg PV Peak Grad 2.3 mmHg RVOT Mean Gr. 0.65 mmHg PV Mean Grad 1.3 mmHg RVOT VTI 0.135 m PV VTI 0.162 m RVOT Vmax 0.55 m/s Tricuspid Valve TR Peak Grad 22.4 mmHg TR Vmax 2.37 m/s RA Pressure 3.00 mmHg RVSP (TR) 25.5 mmHg
== END ==
PROVIDERS: PCP Internal Medicine; Visit Provider Internal Medicine Cardiovascular Disease
DX: R07.89 Other chest pain (principal); I42.9 Cardiomyopathy, unspecified
CPT/HCPCS: 93306

== ENCOUNTER 2022-04-14 19:31 | Outpatient (REF) | payer MEDICARE, MEDICAID, SELFPAY ==
[2022-04-14 20:03] LABS: Abs Immature Grans 0.03 10^3/uL (0.0-0.06); Absolute Basophil Count 0.03 10^3/uL (0.0-0.2); Absolute Eosinophil Count 0.02 10^3/uL (0.0-0.7); Absolute Lymphocyte Count 1.55 10^3/uL (1.2-3.4); Absolute Neutrophil Count 5.64 10^3/uL (1.2-6.7); Basophils % 0.4; Eosinophils % 0.3; HCT 40.1 % (40.0-50.0); Immature Grans % 0.4; Lymphocytes % 19.7; MCH 32.1 pg (27.0-33.0); MCHC 32.4 % (32.0-36.0); MCV 99 fL (80-95); MPV 10.5 fL (8.0-11.0); Monocytes % 7.6; Neutrophils % 71.6; Platelet Count 246 10^3/uL (130-400); RBC 4.05 10^6/uL (4.36-5.78); RDW 12.5 % (11.8-14.1); RDW-SD 45.4 fL; WBC 7.87 10^3/uL (4.4-10.8)
== END 2022-04-14 19:32 | disposition home or self-care (01) ==
LOC: NCHCN 19:31
PROVIDERS: PCP Internal Medicine; Visit Provider Internal Medicine
DX: F25.0 Schizoaffective disorder, bipolar type (principal); Z79.899 Other long term (current) drug therapy
CPT/HCPCS: 85025

== ENCOUNTER → 2022-05-08 01:30 | Outpatient (CLI) | payer MEDICARE, MEDICAID, SELFPAY ==
--- NOTE | 2022-05-08 12:15 | DI.US_ITS ---
Exam(s) US THYROID EXAM: US THYROID CLINICAL HISTORY: THYROID NODULE, E04.1. TECHNIQUE: Ultrasound thyroid performed using standard protocol. COMPARISON: No exams were available for comparison FINDINGS: ISTHMUS: 4.9 mm RIGHT LOBE: Size: 5.4 x 1.9 x 2 cm Echogenicity: Normal. Vascularity: Normal. Nodules: None. LEFT LOBE: Size: 4.2 x 1.7 x 1.6 cm Echogenicity: Normal. Vascularity: Normal. Nodules: The calcified nodule seen on the CT scan of the head and neck from 03/02/2022 could not be wel l characterized on the current ultrasound due to the dense peripheral calcification which obscures fu rther evaluation. It measures approximately 4 mm. OTHER FINDINGS: None. IMPRESSION: 4 mm peripherally calcified nodule in the lower pole of the left lobe. Posterior acoustic shadowing occurred secondary to the calcification. The nodule could not be further evaluated sonographically. DATA REPOSITORY:
== END ==
PROVIDERS: PCP Internal Medicine; Visit Provider Nurse Practitioner Family
DX: E04.1 Nontoxic single thyroid nodule (principal)
CPT/HCPCS: 76536

== ENCOUNTER 2022-05-19 18:53 | Outpatient (REF) | payer MEDICARE, MEDICAID, SELFPAY ==
[2022-05-19 20:04] LABS: Abs Immature Grans 0.05 10^3/uL (0.0-0.06); Absolute Basophil Count 0.02 10^3/uL (0.0-0.2); Absolute Eosinophil Count 0.02 10^3/uL (0.0-0.7); Absolute Lymphocyte Count 1.68 10^3/uL (1.2-3.4); Absolute Monocyte Count 0.51 10^3/uL (0.1-0.8); Absolute Neutrophil Count 3.78 10^3/uL (1.2-6.7); Basophils % 0.3; Eosinophils % 0.3; HCT 37.5 % (40.0-50.0); HGB 12.9 g/dL (13.5-17.5); Immature Grans % 0.8; Lymphocytes % 27.7; MCH 32.7 pg (27.0-33.0); MCHC 34.4 % (32.0-36.0); MCV 95 fL (80-95); MPV 10.5 fL (8.0-11.0); Monocytes % 8.4; Neutrophils % 62.5; Platelet Count 228 10^3/uL (130-400); RBC 3.95 10^6/uL (4.36-5.78); RDW 12.4 % (11.8-14.1); RDW-SD 43.3 fL; WBC 6.06 10^3/uL (4.4-10.8)
== END 2022-05-19 18:54 | disposition home or self-care (01) ==
LOC: NCHCN 18:53
PROVIDERS: PCP Internal Medicine; Visit Provider Internal Medicine
DX: F25.0 Schizoaffective disorder, bipolar type (principal)
CPT/HCPCS: 85025

== ENCOUNTER 2022-06-09 15:53 | Outpatient (REF) | payer MEDICARE, MEDICAID, SELFPAY ==
[2022-06-09 19:43] LABS: Abs Immature Grans 0.05 10^3/uL (0.0-0.06); Absolute Basophil Count 0.04 10^3/uL (0.0-0.2); Absolute Eosinophil Count 0.02 10^3/uL (0.0-0.7); Absolute Lymphocyte Count 1.44 10^3/uL (1.2-3.4); Absolute Monocyte Count 0.63 10^3/uL (0.1-0.8); Basophils % 0.6; Eosinophils % 0.3; HCT 38.1 % (40.0-50.0); HGB 13.2 g/dL (13.5-17.5); Immature Grans % 0.7; Lymphocytes % 20.3; MCH 33.3 pg (27.0-33.0); MCHC 34.6 % (32.0-36.0); MCV 96 fL (80-95); MPV 10.1 fL (8.0-11.0); Monocytes % 8.9; Neutrophils % 69.2; Platelet Count 229 10^3/uL (130-400); RBC 3.96 10^6/uL (4.36-5.78); RDW 12.9 % (11.8-14.1); RDW-SD 44.9 fL; WBC 7.08 10^3/uL (4.4-10.8)
== END 2022-06-09 15:54 | disposition home or self-care (01) ==
LOC: NCHCN 15:53
PROVIDERS: PCP Internal Medicine; Visit Provider Nurse Practitioner Family
DX: R53.83 Other fatigue (principal)
CPT/HCPCS: 85025

== ENCOUNTER 2022-07-14 18:29 | Outpatient (REF) | payer MEDICARE, MEDICAID, SELFPAY ==
[2022-07-14 19:03] LABS: ALT 20 U/L (16-63); AST 13 U/L (15-37); Abs Immature Grans 0.03 10^3/uL (0.0-0.06); Absolute Basophil Count 0.04 10^3/uL (0.0-0.2); Absolute Eosinophil Count 0.02 10^3/uL (0.0-0.7); Absolute Lymphocyte Count 1.55 10^3/uL (1.2-3.4); Absolute Monocyte Count 0.65 10^3/uL (0.1-0.8); Absolute Neutrophil Count 5.34 10^3/uL (1.2-6.7); Albumin 3.2 g/dL (3.4-5.0); Alkaline Phosphatase 96 U/L (46-116); Anion Gap 4.7 mmol/L (3-11); BUN 22 mg/dL (7-18); Basophils % 0.5; Bilirubin, Total 0.3 mg/dL (0.2-1.0); CO2 32.3 mmol/L (21.0-32.0); Chloride 110 mmol/L (98-107); Eosinophils % 0.3; Estimated GFR 96.97 (mL/min/1.73m2); Glucose 87 mg/dL (74-106); HCT 38.5 % (40.0-50.0); HGB 12.8 g/dL (13.5-17.5); Immature Grans % 0.4; Lymphocytes % 20.3; MCH 32.7 pg (27.0-33.0); MCHC 33.2 % (32.0-36.0); MCV 98 fL (80-95); MPV 9.8 fL (8.0-11.0); Monocytes % 8.5; Platelet Count 239 10^3/uL (130-400); RBC 3.92 10^6/uL (4.36-5.78); RDW 12.8 % (11.8-14.1); RDW-SD 45.7 fL; Sodium 147 mmol/L (136-145); Total Protein 6.7 g/dL (6.4-8.2); WBC 7.63 10^3/uL (4.4-10.8)
== END 2022-07-14 18:30 | disposition home or self-care (01) ==
LOC: NCHCN 18:29
PROVIDERS: PCP Internal Medicine; Visit Provider Internal Medicine
DX: Z51.81 Encounter for therapeutic drug level monitoring (principal); I10 Essential (primary) hypertension; I48.91 Unspecified atrial fibrillation
CPT/HCPCS: 80053; 85025

== ENCOUNTER 2022-08-08 08:26 | Outpatient (CLI) | payer MEDICARE, MEDICAID, SELFPAY | END 2022-08-08 08:27 | disposition home or self-care (01) | LOC: DI.CARD 08:27 | PROVIDERS: PCP Internal Medicine; Visit Provider Internal Medicine Cardiovascular Disease | CPT/HCPCS: 93010 ==

== ENCOUNTER → 2022-08-08 11:11 | Outpatient (BNVA) | payer MEDICARE, MEDICAID, SELFPAY | PROVIDERS: PCP Internal Medicine; Referring Provider Internal Medicine; Visit Provider Internal Medicine Cardiovascular Disease | DX: Z79.01 Long term (current) use of anticoagulants (principal); I48.91 Unspecified atrial fibrillation; I42.8 Other cardiomyopathies; I10 Essential (primary) hypertension | CPT/HCPCS: 99214 ==

== ENCOUNTER 2022-08-11 11:03 | Outpatient (REF) | payer MEDICARE, MEDICAID, SELFPAY ==
[2022-08-11 21:30] LABS: Abs Immature Grans 0.05 10^3/uL (0.0-0.06); Absolute Basophil Count 0.04 10^3/uL (0.0-0.2); Absolute Eosinophil Count 0.03 10^3/uL (0.0-0.7); Absolute Lymphocyte Count 1.91 10^3/uL (1.2-3.4); Absolute Monocyte Count 0.72 10^3/uL (0.1-0.8); Basophils % 0.4; Eosinophils % 0.3; HCT 38.2 % (40.0-50.0); HGB 12.8 g/dL (13.5-17.5); Immature Grans % 0.5; Lymphocytes % 19.8; MCH 32.6 pg (27.0-33.0); MCHC 33.5 % (32.0-36.0); MCV 97 fL (80-95); MPV 10.3 fL (8.0-11.0); Monocytes % 7.5; Neutrophils % 71.5; Platelet Count 239 10^3/uL (130-400); RBC 3.93 10^6/uL (4.36-5.78); RDW 12.7 % (11.8-14.1); RDW-SD 45.9 fL; WBC 9.65 10^3/uL (4.4-10.8)
== END 2022-08-11 11:04 | disposition home or self-care (01) ==
LOC: NCHCN 11:03
PROVIDERS: PCP Internal Medicine; Visit Provider Internal Medicine
DX: F25.0 Schizoaffective disorder, bipolar type (principal)
CPT/HCPCS: 85025

== ENCOUNTER 2022-09-08 15:28 | Outpatient (REF) | payer MEDICARE, MEDICAID, SELFPAY ==
[2022-09-08 20:01] LABS: Abs Immature Grans 0.04 10^3/uL (0.0-0.06); Absolute Basophil Count 0.04 10^3/uL (0.0-0.2); Absolute Eosinophil Count 0.03 10^3/uL (0.0-0.7); Absolute Lymphocyte Count 1.93 10^3/uL (1.2-3.4); Absolute Monocyte Count 0.72 10^3/uL (0.1-0.8); Absolute Neutrophil Count 5.47 10^3/uL (1.2-6.7); Basophils % 0.5; Eosinophils % 0.4; HCT 39.4 % (40.0-50.0); HGB 13.1 g/dL (13.5-17.5); Immature Grans % 0.5; Lymphocytes % 23.5; MCH 32.2 pg (27.0-33.0); MCHC 33.2 % (32.0-36.0); MCV 97 fL (80-95); MPV 9.8 fL (8.0-11.0); Monocytes % 8.7; Neutrophils % 66.4; Platelet Count 249 10^3/uL (130-400); RBC 4.07 10^6/uL (4.36-5.78); RDW 12.5 % (11.8-14.1); RDW-SD 45.1 fL; WBC 8.23 10^3/uL (4.4-10.8)
== END 2022-09-08 15:29 | disposition home or self-care (01) ==
LOC: NCHCN 15:28
PROVIDERS: PCP Internal Medicine; Visit Provider Nurse Practitioner Family
DX: F25.9 Schizoaffective disorder, unspecified (principal); Z79.899 Other long term (current) drug therapy
CPT/HCPCS: 85025

== ENCOUNTER 2022-10-06 20:52 | Outpatient (REF) | payer MEDICARE, MEDICAID, SELFPAY ==
[2022-10-06 21:31] LABS: Abs Immature Grans 0.06 10^3/uL (0.0-0.06); Absolute Basophil Count 0.03 10^3/uL (0.0-0.2); Absolute Eosinophil Count 0.02 10^3/uL (0.0-0.7); Absolute Lymphocyte Count 1.74 10^3/uL (1.2-3.4); Absolute Monocyte Count 0.66 10^3/uL (0.1-0.8); Absolute Neutrophil Count 5.59 10^3/uL (1.2-6.7); Basophils % 0.4; Eosinophils % 0.2; HCT 38.1 % (40.0-50.0); HGB 12.5 g/dL (13.5-17.5); Immature Grans % 0.7; Lymphocytes % 21.5; MCH 32.8 pg (27.0-33.0); MCHC 32.8 % (32.0-36.0); MCV 100 fL (80-95); MPV 10.4 fL (8.0-11.0); Monocytes % 8.1; Neutrophils % 69.1; Platelet Count 254 10^3/uL (130-400); RBC 3.81 10^6/uL (4.36-5.78); RDW 13.1 % (11.8-14.1); RDW-SD 47.5 fL
== END 2022-10-06 20:53 | disposition home or self-care (01) ==
LOC: LBN 20:52
PROVIDERS: PCP Internal Medicine; Referring Provider Psychiatry & Neurology Psychiatry; Visit Provider Internal Medicine Cardiovascular Disease
DX: F25.0 Schizoaffective disorder, bipolar type (principal); Z79.899 Other long term (current) drug therapy
CPT/HCPCS: 85025

== ENCOUNTER 2022-10-15 11:02 | Outpatient (CLI) | payer MEDICARE, MEDICAID, SELFPAY ==
--- OUTSIDE RECORDS SUMMARY | 2022-10-15 11:06 | XMS_ITS | Continuity of Care Document ---
:1980 Author Organization [facility] Address [address] [place] [address] Care Team Providers Name Role Phone Primeau IPH[facility], Myles Collins Primary Care Physician [phone] Encounter COUNT INCLUDES [facility] [id number] Date(s): 09/17/22 - 09/17/[address] [address] Discharge Disposition: Home or Self Care Attending Physician: Bradly Mac MD Admitting Physician: Bradly Mac MD Referring Physician: Bradly Mac MD Allergies, Adverse Reactions, Alerts Substance Reaction Severity Status LATEX Active divalproex sodium Unknown Active Assessment and Plan Future AppointmentsDiagnostic Tests PendingDexamethasone TEN SLEEP 09/17/22[facility] 09/17/22Testosterone, Total and Free [facility] 09/17/22 Medications Albuterol (Eqv-ProAir HFA) 90 mcg/inh inhalation aerosol 2 puffs, Inhale, every 4 hr, 0 Refill(s) Start Date: 06/13/22 Status: OrderedamLODIPine 5 mg oral tablet 10 mg = 2 tab, Oral, Daily, as needed, # 30 tab, 0 Refill(s) Start Date: 06/13/22 Status: OrderedcloZAPine 100 mg oral tablet 100 mg = 1 tab, Oral, Daily, at bedtime, # 21 tab, 0 Refill(s) Start Date: 06/13/22 Status: OrderedFLUoxetine 40 mg oral capsule 40 mg = 1 cap, Oral, Daily, # 30 cap, 0 Refill(s) Start Date: 06/13/22 Status: Orderedibuprofen 200 mg oral tablet 400 mg = 2 tab, Oral, every 4 hr, PRN as needed for fever, # 120 tab, 0 Refill(s) Start Date: 06/13/22 Status: OrderedLife, PAP Supplies Request. patient is due for all new pap supplies Send to DME:[facility] [employer], See instructions, # 1 EA, 0 Refill(s) Start Date: 06/20/22 Status: Orderedpseudoephedrine 60 mg oral tablet 60 mg = 1 tab, Oral, every 6 hr, PRN as needed for cold symptoms, as needed, # 40 tab, 0 Refill(s) Start Date: 06/13/22 Status: OrderedvalACYclovir 1 g oral tablet 1 g = 1 tab, Oral, TID, # 21 tab, 0 Refill(s) Start Date: 06/13/22 Stop Date: 06/20/22 Status: Ordered Problem List Condition Confirmation Course Effective Status Health Informa nt Dates Status Acute iritis of right Confirmed 06/07/21 Active eye Acute systolic heart Confirmed 06/07/21 Active failure Environmental allergy Confirmed 06/12/21 Active Altered mental status Confirmed 06/07/21 Active Atrial fibrillation Confirmed 06/07/21 Active Biliary colic Confirmed 06/07/21 Active Bipolar disorder1 Confirmed 06/07/21 Active Chest pain Confirmed 06/07/21 Active Cholecystitis Confirmed 06/07/21 Active Chronic systolic heart Confirmed 06/07/21 Active failure Dilated cardiomyopathy Confirmed 06/07/21 Active Essential hypertension Confirmed 06/07/21 Active Gastroesophageal reflux Confirmed 06/07/21 Active disease Hypersexuality state Confirmed 06/07/13 Active Hypertensive disorder Confirmed 06/12/21 Active Hypoxemia Confirmed 06/07/21 Active Light for dates without Confirmed 06/07/21 Active malnutrition terminal operations manager current use Confirmed 06/07/21 Active of immunosuppressive drug Migraine Confirmed 06/12/21 Active Obesity Confirmed 06/07/21 Active Obstructive sleep apnea Confirmed 06/07/21 Active syndrome2 Pneumonia Confirmed 06/07/21 Active Psoriasis Confirmed 06/07/21 Active Psoriatic arthritis Confirmed 06/07/21 Active Schizophrenia Confirmed 06/07/21 Active Sleep apnea Confirmed 06/12/21 Active Steatosis of liver Confirmed 06/07/21 Active Subsequent non-ST Confirmed 06/07/21 Active elevation (NSTEMI) myocardial infarction Tremor Confirmed 06/07/21 Active UI (urinary Confirmed 06/07/21 Active incontinence) 1From 06-17-2021 visit: 06/17/21: d[facility], he has 1-on-1 monitor staff even at night, so requesting this be available on night of sleep study, 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: 12/23/2021: Patient with history of severe obstructive sleep apnea and obesity hypoventilation previously on BiPAP 20/14 and 3 L supplemental O2, with approximately 50 pound weight loss compared to his original split-night study, who now on the most recent titration showed that he only needs BiPAP with pressure support of 6 cm, and no supplemental oxygen. Patient is doing well on the new setting at auto BiPAP IMAX 20 5E min 16 PS 6 cm, with residual AHI of only 3.9/h, does have increased mask leak for which I advised his alf aide who helps him put on the mask every night work on tightening the straps Explained to patient that he does not need supplemental oxygen, we did this several times until he seemed to understand this. Patient did well with a large cushion of the Simplus full facemask at the titration study. However he only has a medium at home. He says [facility] has not sent the right size for him. So I sent a order for[facility] to get the correct large size It is unclear whether patient is due for a new BiPAP machine. If it has been more than 5 years sincehe last got the machine I do recommend he get a replacement, even if he does get the refurbish replacement recall machine, that is an older machine and may still have risk related to the recall. I will send the order to request this to [facility]. If he is not yet due for new machine we willcheck again at his future follow-up. Plan for 6-month follow- up so we can check to see how he is doing either on the new BiPAP machine or the recall replacement BiPAP machine through manufacture, transition to care to Elodia Smith TRANSACTION ADVISORY SERVICES MANAGER Results Laboratory List Name Date Cortisol [facility] 09/17/22 Lactate Dehydrogenase 09/17/22 Most recent to oldest [Reference Range]: 1 LDH [85-227 unit/L] 119 unit/L (09/17/22 8:46 AM) Cortisol [facility] [See Note mcg/dL] 12 mcg/dL 1 *NA* (09/17/22 8:46 AM) 1Result Comment: NOTE: Reference Ranges (from [facility]): Collected Before 10:00 AM: 4 - 23 ug/dL Collected After 5:00 PM: 2 - 14 ug/dL The results of this assay can be falsely elevated due to the consumption of Biotin. Test performed [place] [address] Social History Social History Type Response Tobacco Never tobacco user Tobacco U se:. Sex Male Patient Care team information PersonnelName: Diane [facility], Myles Collins MD Address: Address: [address] [address]- [place]
--- OUTSIDE RECORDS SUMMARY | 2022-10-15 11:06 | XMS_ITS | Continuity of Care Document ---
:1980 Author Organization [facility] Address [address] [place] [address] Care Team Providers Name Role Phone Primeau IPHC, Myles Collins Primary Care Physician Encounter [facility] [id number] Date(s): 09/16/22 - 09/16/22 [facility] [address] [place] [address] Discharge Disposition: Home or Self Care Attending Physician: Bradly Mac MD Admitting Physician: Bradly Mac MD Referring Physician: Bradly Mac MD Allergies, Adverse Reactions, Alerts Substance Reaction Severity Status LATEX Active divalproex sodium Unknown Active Assessment and Plan Future AppointmentsDiagnostic Tests PendingCortisol, Free, 24 Hr Ur [facility] 09/16/22 Medications Albuterol (Eqv-ProAir HFA) 90 mcg/inh inhalation [...] tab, 0 Refill(s) Start Date: 06/13/22 Status: OrderedLifetime / Lifetime / , PAP Supplies Request. 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 Patient did well with a large cushion of the Simplus full facemask at the titration study. However he only has a medium at home. He says [facility] has not sent the right size for him. [facility] It [...] send the order to request this to [facility]. If he is not yet due for new machine we willcheck again at his future follow-up. Plan for 6-month follow- up so we can check to see how he is doing either on the new BiPAP machine or the recall replacement BiPAP machine through manufacture, transition to care to Elodia Smith DIE TURNER Results Laboratory List Name Date Creatinine Level 24 Hour Urine 09/16/22 Most recent to oldest [Reference Range]: 1 U24 Creatinine [600-2500 mg/24hr] 992 mg/24hr (09/16/22 10:39 AM) TV Creatinine 1740 mL *NA* (09/16/22 10:39 AM) Social History Social History Type Response Tobacco Never tobacco user Tobacco U se:. Sex Male Patient Care team information PersonnelName: Diane WHITE, Myles Collins MD Address: Address: [address] [address]- [place]
--- OUTSIDE RECORDS SUMMARY | 2022-10-15 11:06 | XMS_ITS | Continuity of Care Document ---
:1980 Author Organization [facility] Address [address] [place] [address] Care Team Providers Name Role Phone Primeau IPHC, Myles Collins Primary Care Physician Encounter [facility] [id number] Date(s): 08/06/22 - 08/06/22 [facility] [address] [place] [address] Discharge Disposition: Home or Self Care Attending Physician: Bradly Mac Admitting Physician: Bradly Mac Referring Physician: Bradly Mac Allergies, Adverse Reactions, Alerts Substance Reaction Severity Status LATEX Active divalproex sodium Unknown Active Assessment and Plan Future AppointmentsDiagnostic Tests PendingRenin Activity, P [place] 08/06/22 Aldosterone, S [place] 08/06/22Cortisol, Free, 24 Hr Ur [place] 08/06/22Generic Orderable [facility] 08/06/22 Medications Albuterol (Eqv-ProAir HFA) 90 mcg/inh inhalation [...] for dates without Confirmed 06/07/21 Active malnutrition care home current use Confirmed 06/07/21 Active of immunosuppressive [...] available on night of sleep study, 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 Patient did well with a large cushion of the Simplus full facemask at the titration study. However he only has a medium at home. He says [place] has not sent the right size for him. So I sent a order forhim to get the correct large size It [...] send the order to request this to [facility]. If he is not yet due for new machine we willcheck again at his future follow-up. Plan for 6-month follow- up so we can check to see how he is doing either on the new BiPAP machine or the recall replacement BiPAP machine through manufacture, transition to care to Elodia Smith BINGO CALLER Results Laboratory List Name Date Creatinine Level 24 Hour Urine 08/06/22 Osmolality Urine 08/06/22 Sodium Level 24 Hour Urine 08/06/22 Sodium Level Urine 08/06/22 Basic Metabolic Panel 08/06/22 Prolactin [facility] 08/06/22 Most recent to oldest [Reference Range]: 1 BUN [7-18 mg/dL] 15 mg/dL (08/06/22 9:28 AM) Glucose Level [74-106 mg/dL] 87 mg/dL (08/06/22 9:28 AM) Potassium Level [3.5-5.1 mmol/L] 3.7 mmol/L (08/06/22 9:28 AM) Sodium Level [136-145 mmol/L] 145 mmol/L (08/06/22 9:28 AM) Calcium Level [8.5-10.1 mg/dL] 8.8 mg/dL (08/06/22 9:28 AM) TV Sodium 2460 mL *NA* (08/06/22:33 AM) CO2 [21-32 mmol/L] 31 mmol/L (08/06/22 9:28 AM) Osmolality Ur [300-1300 mOsm/L] 232 mOsm/L 1 *LOW* (08/06/22:33 AM) eGFR Non-AA [>=60] 114 (08/06/22 9:28 AM) eGFR AA [>=60] 114 (08/06/22 9:28 AM) U24 Creatinine [600-2500 mg/24hr] 1205 mg/24hr (08/06/22 9:33 AM) TV Creatinine 2460 mL *NA* (08/06/22:33 AM) Chloride Level [98-107 mmol/L] 109 mmol/L *HI* (08/06/22:28 AM) Creatinine Level [0.70-1.30 mg/dL] 0.80 mg/dL (08/06/22 9:28 AM) U24 Sodium [40-220 mmol/24hr] 103 mmol/24hr (08/06/22:33 AM) U Sodium [20-110 mmol/L] 42 mmol/L (08/06/22 9:33 AM) Prolactin [facility] [2.1-17.7 ng/mL] 35.8 ng/mL 2 *HI* (08/06/22 9:28 AM) Anion Gap [8-16 mmol/L] 5 mmol/L *NA* (10/12/22 9:28 AM) 1Result Comment: RANDOM [id number] Comment: Test [place] [id number] Social History Social History Type Response Tobacco Never tobacco user Tobacco U se:. Sex Male Patient Care team information PersonnelName: Diane DEVYN, Myles Collins MD Address: Address: [address]
--- NOTE | 2022-10-15 14:55 | DI.US_ITS ---
APPROVED REPORT EXAM: Comprehensive 2D, Doppler, and color-flow Echocardiogram Patient Location: Out-Patient Fuel Oil Clerk: Malgorzata Botello RDCS (AE) Indications: Check lv function, Atrial fibrillation, non ischemic cardiomyopathy Other Information Study Quality: Fair. Technically limited study due to body habitus, inability to position patient. Conclusion Normal left ventricular wall thickness. The left ventricle is moderately dilated. There is global h ypokinesis with an ejection fraction of 30 to 35% Normal right ventricular size and systolic function The left atrium is moderately dilated. The right atrium is borderline dilated There are no significant structural valvular abnormalities Mild mitral and tricuspid regurgitation Admitted right ventricular systolic pressure is 21 mmHg Wall motion Left Ventricle Left ventricle is moderately dilated. Left ventricular systolic function is moderately decreased. The re is normal left ventricular wall thickness. There is global hypokinesis of the left ventricle. Ther e is no ventricular septal defect visualized. LVEF is 30-35%. Right Ventricle The right ventricle is normal size. The right ventricular systolic function is normal. The RVSP is 20 .6_ mmHg. Atria Left atrium is moderately dilated. Right atrium is borderline dilated. There is no Doppler evidence for an atrial septal defect. Aortic Valve The aortic valve is normal in structure. Aortic valve is trileaflet. There is no aortic valvular sten osis. No aortic regurgitation is present. Mitral Valve Mitral valve leaflets are mildly thickened. No evidence of mitral valve stenosis. Mild mitral regurg itation. Tricuspid Valve The tricuspid valve is normal in structure. There is no tricuspid valve stenosis. Mild tricuspid regu rgitation. Pulmonic Valve The pulmonary valve is normal in structure. There is no pulmonic valvular stenosis. Trace pulmonic re gurgitation. Great Vessels The aortic root is normal in size. The ascending aorta is normal in size. Aortic arch is normal in ca liber. IVC is normal in size and collapses >50% with inspiration. Pericardium There is no pericardial effusion. 2D Dimensions IVSD d PLAX 0.91 cm M: 0.6-1.2 LV Vol A2C d MOD 194.4 mL LVPW d PLAX 0.92 cm M: 0.6 - 1.2 LV Vol A4C d MOD 195.6 mL LVID d PLAX 6.20 cm M: 4.2 - 5.8 LA vol/ BSA A2C s A-L 41.7 mL/m2 LVDs 5.25 cm M: 2.5 - 4.0 LA vol/ BSA A4C s A-L 39.8 mL/m2 Ao Root d 3.35 cm M: 3.1 - 3.7 LA Vol/ BSA Biplane s A-L 44.4 mL/m2 RA Area A4C 22.83 cm2 LA Area A4C s MOD 28.99 cm2 RA Vol/ BSA A4C s A-L 29.9 mL/m2 LA Area A2C s MOD 27.24 cm2 Ao Asc Diam d 3.12 cm M: 2.6 - 3.4 LV EF A4C MOD 34.9 % LV EF Teichholz 31.1 % LV EF A2C MOD 32.1 % LVEF (Brand's) 32.09 % M: 52 - 72 LV EF Biplane MOD 32.1 % LV Volume 137.06 mL M: 62 - 150 SV 62.84 mL LV Volume Index 54.82 mL/m2 M: 34 - 74 SV Index 25.14 mL/m2 LV Vol Biplane MOD 195.8 mL FS 14.95 % M-Mode TAPSE 1.84 cm (M/F) >1.7 LV Diastology MV E' medial 0.114 (>0.07 m/s) MV E Vmax 0.88 (0.4-1.3 m/s) LV E/e MED 7.65 (<14) MV E/E' medial 7.69 Aortic Valve LVOT Area 4.20 cm2 AoV Area Vmax 3.70 cm2 LVOT Vmax 0.79 m/s AoV Area/ BSA (Vmax) 1.48 cm2/m2 LVOT Mean Adam. 0.54 m/s CHEVY Mean Adam. 3.30 cm2 LVOT Peak Grad 2.5 mmHg CHEVY Mean Adam. Index 1.32 cm2/m2 LVOT Mean Grad 1.4 mmHg LVOT VTI 0.177 m LVOT Diam s 2.30 cm AoV Vmax 0.90 m/s Velocity Ratio 0.88 AoV Mean Adam. 0.69 m/s AoV Peak Grad 3.2 mmHg LVOT SV 74.41 mL AoV Mean Grad 2.0 mmHg AoV VTI 0.181 m AoV Area VTI 4.12 cm2 AoV Area/ BSA (VTI) 1.65 cm/m2 Mitral Valve MV DT 182 (160-240 msec) MV PHT 53 msec MV Area PHT 4.16 cm2 MV VTI 0.193 m MV Area VTI 3.85 (4.0-6.0 cm2) Pulmonary Valve PV Vmax 0.76 (0.5-1.5 m/s) RVOT Peak Gr. 1.13 mmHg PV Peak Grad 2.3 mmHg RVOT Mean Gr. 0.65 mmHg PV Mean Grad 1.4 mmHg RVOT VTI 0.142 m PV VTI 0.219 m RVOT Vmax 0.53 m/s Tricuspid Valve TR Peak Grad 17.5 mmHg TR Vmax 2.10 m/s RA Pressure 3.00 mmHg RVSP (TR) 20.6 mmHg
== END 2022-10-15 11:22 ==
LOC: DI 11:02
PROVIDERS: PCP Internal Medicine; Visit Provider Internal Medicine Cardiovascular Disease
DX: I42.8 Other cardiomyopathies (principal); I48.91 Unspecified atrial fibrillation
CPT/HCPCS: 93306

== ENCOUNTER 2022-11-13 18:45 | Outpatient (REF) | payer MEDICARE, MEDICAID, SELFPAY ==
[2022-11-13 18:57] LABS: Abs Immature Grans 0.05 10^3/uL (0.0-0.06); Absolute Basophil Count 0.04 10^3/uL (0.0-0.2); Absolute Lymphocyte Count 1.57 10^3/uL (1.2-3.4); Absolute Monocyte Count 0.69 10^3/uL (0.1-0.8); Absolute Neutrophil Count 6.27 10^3/uL (1.2-6.7); Basophils % 0.5; HCT 38.7 % (40.0-50.0); HGB 13.1 g/dL (13.5-17.5); Immature Grans % 0.6; Lymphocytes % 18.2; MCH 32.6 pg (27.0-33.0); MCHC 33.9 % (32.0-36.0); MCV 96 fL (80-95); MPV 9.7 fL (8.0-11.0); Neutrophils % 72.7; Platelet Count 260 10^3/uL (130-400); RBC 4.02 10^6/uL (4.36-5.78); RDW 12.4 % (11.8-14.1); RDW-SD 43.7 fL; WBC 8.62 10^3/uL (4.4-10.8)
== END 2022-11-13 18:46 | disposition home or self-care (01) ==
LOC: NCHCN 18:45
PROVIDERS: PCP Internal Medicine; Visit Provider Nurse Practitioner Family
DX: F25.0 Schizoaffective disorder, bipolar type (principal); Z79.899 Other long term (current) drug therapy; I10 Essential (primary) hypertension
CPT/HCPCS: 85025

== ENCOUNTER 2022-11-26 15:21 | Outpatient (REF) | payer MEDICARE, MEDICAID, SELFPAY ==
[2022-11-26 21:57] LABS: Iron 64 ug/dL (65-175); Total Iron Binding Capacity 177 ug/dL (250-450); Transferrin Sat 36 % (20-55)
[2022-11-26 22:06] LABS: Ferritin 111 ng/mL (26-388)
== END 2022-11-26 15:22 | disposition home or self-care (01) ==
LOC: NCHCN 15:21
PROVIDERS: PCP Internal Medicine; Visit Provider Nurse Practitioner Family
DX: D64.9 Anemia, unspecified (principal)
CPT/HCPCS: 82728; 83540; 83550

== ENCOUNTER 2022-12-08 11:32 | Outpatient (REF) | payer MEDICARE, MEDICAID, SELFPAY ==
[2022-12-08 20:13] LABS: Abs Immature Grans 0.06 10^3/uL (0.0-0.06); Absolute Basophil Count 0.05 10^3/uL (0.0-0.2); Absolute Eosinophil Count 0.02 10^3/uL (0.0-0.7); Absolute Lymphocyte Count 2.11 10^3/uL (1.2-3.4); Absolute Monocyte Count 0.66 10^3/uL (0.1-0.8); Absolute Neutrophil Count 5.79 10^3/uL (1.2-6.7); Basophils % 0.6; Eosinophils % 0.2; HGB 13.2 g/dL (13.5-17.5); Immature Grans % 0.7; Lymphocytes % 24.3; MCH 32.4 pg (27.0-33.0); MCV 98 fL (80-95); MPV 9.8 fL (8.0-11.0); Monocytes % 7.6; Neutrophils % 66.6; Platelet Count 260 10^3/uL (130-400); RBC 4.07 10^6/uL (4.36-5.78); RDW 12.4 % (11.8-14.1); RDW-SD 44.3 fL; WBC 8.69 10^3/uL (4.4-10.8)
== END 2022-12-08 11:33 | disposition home or self-care (01) ==
LOC: LBN 11:32
PROVIDERS: PCP Internal Medicine; Visit Provider Psychiatry & Neurology Psychiatry
DX: F20.9 Schizophrenia, unspecified (principal); Z13.89 Encounter for screening for other disorder
CPT/HCPCS: 85025

== ENCOUNTER → 2022-12-15 13:43 | Outpatient (BNVA) | payer MEDICARE, MEDICAID, SELFPAY | PROVIDERS: PCP Internal Medicine; Referring Provider Internal Medicine; Visit Provider Surgery | DX: D64.9 Anemia, unspecified (principal); I42.8 Other cardiomyopathies; I10 Essential (primary) hypertension; I26.99 Other pulmonary embolism without acute cor pulmonale; K21.9 Gastro-esophageal reflux disease without esophagitis; Z87.820 Personal history of traumatic brain injury | CPT/HCPCS: 99215; 99243 ==

== ENCOUNTER 2023-01-12 15:35 | Outpatient (REF) | payer MEDICARE, MEDICAID, SELFPAY ==
[2023-01-13 08:59] LABS: Abs Immature Grans 0.03 10^3/uL (0.0-0.06); Absolute Basophil Count 0.04 10^3/uL (0.0-0.2); Absolute Eosinophil Count 0.02 10^3/uL (0.0-0.7); Absolute Lymphocyte Count 1.56 10^3/uL (1.2-3.4); Absolute Monocyte Count 0.57 10^3/uL (0.1-0.8); Absolute Neutrophil Count 5.12 10^3/uL (1.2-6.7); Basophils % 0.5; Eosinophils % 0.3; HCT 37.9 % (40.0-50.0); HGB 12.9 g/dL (13.5-17.5); Immature Grans % 0.4; Lymphocytes % 21.3; MCH 32.7 pg (27.0-33.0); MCV 96 fL (80-95); MPV 9.7 fL (8.0-11.0); Monocytes % 7.8; Neutrophils % 69.7; Platelet Count 218 10^3/uL (130-400); RBC 3.94 10^6/uL (4.36-5.78); RDW 12.3 % (11.8-14.1); RDW-SD 43.3 fL; WBC 7.34 10^3/uL (4.4-10.8)
== END 2023-01-12 15:36 | disposition home or self-care (01) ==
LOC: LBN 15:35
PROVIDERS: PCP Internal Medicine; Visit Provider Psychiatry & Neurology Psychiatry
DX: F20.9 Schizophrenia, unspecified (principal); Z79.899 Other long term (current) drug therapy
CPT/HCPCS: 85025

== ENCOUNTER 2023-02-02 11:07 | Outpatient (REF) | payer MEDICARE, MEDICAID, SELFPAY ==
[2023-02-02 18:50] LABS: Abs Immature Grans 0.06 10^3/uL (0.0-0.06); Absolute Basophil Count 0.05 10^3/uL (0.0-0.2); Absolute Eosinophil Count 0.02 10^3/uL (0.0-0.7); Absolute Lymphocyte Count 1.95 10^3/uL (1.2-3.4); Absolute Neutrophil Count 6.29 10^3/uL (1.2-6.7); Basophils % 0.5; Eosinophils % 0.2; HCT 40.5 % (40.0-50.0); HGB 13.7 g/dL (13.5-17.5); Immature Grans % 0.7; Lymphocytes % 21.3; MCH 32.3 pg (27.0-33.0); MCHC 33.8 % (32.0-36.0); MCV 96 fL (80-95); MPV 9.6 fL (8.0-11.0); Monocytes % 8.7; Neutrophils % 68.6; Platelet Count 248 10^3/uL (130-400); RBC 4.24 10^6/uL (4.36-5.78); RDW 12.8 % (11.8-14.1); RDW-SD 44.6 fL; WBC 9.17 10^3/uL (4.4-10.8)
== END 2023-02-02 11:08 | disposition home or self-care (01) ==
LOC: LBN 11:07
PROVIDERS: PCP Internal Medicine; Visit Provider Psychiatry & Neurology Psychiatry
DX: D70.9 Neutropenia, unspecified (principal)
CPT/HCPCS: 85025

== ENCOUNTER → 2023-02-06 09:22 | Outpatient (BNVA) | payer MEDICARE, MEDICAID, SELFPAY | PROVIDERS: PCP Internal Medicine; Visit Provider Internal Medicine Cardiovascular Disease | DX: I48.21 Permanent atrial fibrillation (principal); Z79.01 Long term (current) use of anticoagulants; I42.8 Other cardiomyopathies; I10 Essential (primary) hypertension | CPT/HCPCS: 99214 ==

== ENCOUNTER 2023-03-09 17:44 | Outpatient (REF) | payer MEDICARE, MEDICAID, SELFPAY ==
[2023-03-09 20:10] LABS: ALT 23 U/L (16-63); AST 13 U/L (15-37); Albumin 3.2 g/dL (3.4-5.0); Alkaline Phosphatase 112 U/L (46-116); Anion Gap 5.3 mmol/L (3-11); BUN 21 mg/dL (7-18); Bilirubin, Total 0.3 mg/dL (0.2-1.0); CO2 31.7 mmol/L (21.0-32.0); CREATININE 0.8 mg/dL (0.70-1.30); Chloride 110 mmol/L (98-107); Estimated GFR 114.02 (mL/min/1.73m2); Glucose 82 mg/dL (74-106); Potassium 3.9 mmol/L (3.5-5.1); Sodium 147 mmol/L (136-145); Total Protein 6.6 g/dL (6.4-8.2)
== END 2023-03-09 17:45 | disposition home or self-care (01) ==
LOC: NCHCN 17:44
PROVIDERS: PCP Internal Medicine; Visit Provider Nurse Practitioner Family
DX: E87.0 Hyperosmolality and hypernatremia (principal); I10 Essential (primary) hypertension
CPT/HCPCS: 80053

== ENCOUNTER 2023-04-01 20:44 | Outpatient (REF) | payer MEDICARE, MEDICAID, SELFPAY ==
[2023-04-01 20:08] LABS: Abs Immature Grans 0.05 10^3/uL (0.0-0.06); Absolute Basophil Count 0.03 10^3/uL (0.0-0.2); Absolute Eosinophil Count 0.01 10^3/uL (0.0-0.7); Absolute Lymphocyte Count 1.57 10^3/uL (1.2-3.4); Absolute Monocyte Count 0.69 10^3/uL (0.1-0.8); Absolute Neutrophil Count 5.46 10^3/uL (1.2-6.7); Basophils % 0.4; Eosinophils % 0.1; HCT 40.9 % (40.0-50.0); HGB 13.5 g/dL (13.5-17.5); Immature Grans % 0.6; Lymphocytes % 20.1; MCH 32.5 pg (27.0-33.0); MCV 99 fL (80-95); Monocytes % 8.8; Platelet Count 229 10^3/uL (130-400); RBC 4.15 10^6/uL (4.36-5.78); RDW 12.7 % (11.8-14.1); RDW-SD 45.7 fL; WBC 7.81 10^3/uL (4.4-10.8)
== END 2023-04-01 20:45 | disposition home or self-care (01) ==
LOC: LBN 20:44
PROVIDERS: PCP Internal Medicine; Visit Provider Psychiatry & Neurology Psychiatry
DX: F20.9 Schizophrenia, unspecified (principal); Z79.899 Other long term (current) drug therapy
CPT/HCPCS: 85025

== ENCOUNTER 2023-05-04 12:17 | Outpatient (REF) | payer MEDICARE, MEDICAID, SELFPAY ==
--- OUTSIDE RECORDS SUMMARY | 2023-05-04 12:22 | XMS_ITS | Continuity of Care Document ---
Author Name Unknown Organization [facility] Address [address] [place] [address] Care Team Providers Care Subsurface Augmentee Operator Name Role Phone Primeau [facility] Date(s): 01/08/23 - 01/08/[address] [address] Discharge Disposition: Home or Self Care Attending Physician: Bradly Mac MD Admitting Physician: Bradly Mac MD Referring Physician: Bradly Mac MD Allergies, Adverse Reactions, Alerts Substance Reaction Severity Status LATEX Active divalproex sodium Unknown Active Assessment and Plan Diagnostic Tests Pending * Adrenocorticotropic Hormone, P MINDEN 01/08/23 * Renin Activity, P MINDEN 01/08/23 * Aldosterone, S MINDEN 01/08/23 * DHEA Sulfate UV 01/08/23 Medications Albuterol (Eqv-ProAir HFA) 90 mcg/inh inhalation aerosol 2 puffs, Inhale, every 4 hr, 0 Refill(s) Start Date: 06/13/22 Status: Ordered amLODIPine 5 mg oral tablet 10 mg = 2 tab, Oral, Daily, as needed, # 30 tab, 0 Refill(s) Start Date: 06/13/22 Status: Ordered cloZAPine 100 mg oral tablet 100 mg = 1 tab, Oral, Daily, at bedtime, # 21 tab, 0 Refill(s) Start Date: 06/13/22 Status: Ordered FLUoxetine 40 mg oral capsule 40 mg = 1 cap, Oral, Daily, # 30 cap, 0 Refill(s) Start Date: 06/13/22 Status: Ordered ibuprofen 200 mg oral tablet 400 mg = 2 tab, Oral, every 4 hr, PRN as needed for fever, # 120 tab, 0 Refill(s) Start Date: 06/13/22 Status: Ordered / Lifetime , PAP Supplies Request. patient is due for all new pap supplies Send to DME:[facility] [employer], See instructions, # 1 EA, 0 Refill(s) Start Date: 06/20/22 Status: Ordered pseudoephedrine 60 mg oral tablet 60 mg = 1 tab, Oral, every 6 hr, PRN as needed for cold symptoms, as needed, # 40 tab, 0 Refill(s) Start Date: 06/13/22 Status: Ordered valACYclovir 1 g oral tablet 1 g = 1 tab, Oral, TID, # 21 tab, 0 Refill(s) Start Date: 06/13/22 Stop Date: 06/20/22 Status: Ordered Problem List Condition Confirmation Course Effective Dates Status Health Status Informant Acute iritis of right eye Confirmed 06/07/21 Active Acute systolic heart failure Confirmed 06/07/21 Active Environmental allergy Confirmed 06/12/21 Active Altered mental status Confirmed 06/07/21 Active Atrial fibrillation Confirmed 06/07/21 Active Biliary colic Confirmed 06/07/21 Active Bipolar disorder 1 Confirmed 06/07/21 Active Chest pain Confirmed 06/07/21 Active Cholecystitis Confirmed 06/07/21 Active Chronic systolic heart failure Confirmed 06/07/21 Active Dilated cardiomyopathy Confirmed 06/07/21 Active Essential hypertension Confirmed 06/07/21 Active Gastroesophageal reflux disease Confirmed 06/07/21 Active Hypersexuality state Confirmed 06/07/13 Active Hypertensive disorder Confirmed 06/12/21 Active Hypoxemia Confirmed 06/07/21 Active Light for dates without malnutrition Confirmed 06/07/21 Active alf current use of immunosuppressive drug Confirmed 06/07/21 Active Migraine Confirmed 06/12/21 Active Obesity Confirmed 06/07/21 Active Obstructive sleep apnea syndrome 2 Confirmed 06/07/21 Active Obstructive sleep apnea Confirmed Active Pneumonia Confirmed 06/07/21 Active Psoriasis Confirmed 06/07/21 Active Psoriatic arthritis Confirmed 06/07/21 Active Schizophrenia Confirmed 06/07/21 Active Sleep apnea Confirmed 06/12/21 Active Steatosis of liver Confirmed 06/07/21 Active Subsequent non-ST elevation (NSTEMI) myocardial infarction Confirmed 06/07/21 Active Tremor Confirmed 06/07/21 Active UI (urinary incontinence) Confirmed 06/07/21 Active 1From 06-17-2021 visit: 06/17/21: d[facility]w [facility] at [facility], he has 1-on-1 monitor staff even at night, so requesting this be available on night of sleep study, 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 2From 12-23-2021 visit: 12/23/2021: Patient with history of [...] min 16 PS 6 cm, with residual AHIof only 3.9/h, does have increased mask leak [...] has a medium at home. He says [facility] has not sent the right size for him. So I sent a order for him to get the correct large size It is unclear whether patient is due for a new BiPAP machine. If it has been more than 5 years since he last got the machine I do recommend he get a replacement, even if he does get the refurbish replacement recall machine, that is an older machine and may still have risk related to the recall. I will send the order to request this to [facility]. If he is not yet due for new machine we will check again at his future follow-up. Plan for 6-month follow-up so we can check to see how he is doing either on the new BiPAP machine or the recall replacement BiPAP machine through manufacture, transition to care to Elodia Smith SUPERVISOR [employer]IGARET[employer] MAKING DEPARTMENT Results Laboratory List Name Date Basic Metabolic Panel 01/08/23 Cortisol [facility] 01/08/23 Most recent to oldest [Reference Range]: 1 BUN [7-18 mg/dL] 15 mg/dL (01/08/23 9:40 AM) Glucose Level [74-106 mg/dL] 90 mg/dL (01/08/23 9:40 AM) Potassium Level [3.5-5.1 mmol/L] 3.6 mmo l/L (01/08/23 9:40 AM) Sodium Level [136-145 mmol/L] 147 mmol/L *HI* (01/08/23 9:40 AM) Calcium Level [8.5-10.1 mg/dL] 9.0 mg/dL (01/08/23 9:40 AM) CO2 [21-32 mmol/L] 31 mmol/L (01/08/23 9:40 AM) eGFR Non-AA [>=60] 114 (01/08/23 9:40 AM) eGFR AA [>=60] 114 (01/08/23 9:40 AM) Chloride Level [98-107 mmol/L] 108 mmol/ L *HI* (01/08/23 9:40 AM) Creatinine Level [0.70-1.30 mg/dL] 0.80 mg/dL (01/08/23 9:40 AM) Cortisol [facility] [See Note mcg/dL] 12 mcg/dL 1 *NA* (01/08/23 9:40 AM) 1Result Comment: NOTE: Reference Ranges (from [facility]): Collected Before 10:00 AM: 4 - 23 ug/dL Collected After 5:00 PM: 2 - 14 ug/dL The results of this assay can be falsely elevated due to the consumption of Biotin. Test performed [place] [address] Social History Social History Type Response Tobacco Never tobacco user T obacco Use:. Sex Male Patient Care team information Care Team Personnel Name: Elodia Craig SUPERVISOR [employer]ARET[employer] MAKING DEPARTMENT Position: Physician Member Role: Nurse Practitioner Address: Address: [address] [place] [id number] [place] Name: Myles Valdovinos MD Position: No Access Member Role: Primary Care Physician Address: Address: [address] [address] Care Team Related Persons Name: MELISSA ELLIOTT Address: Home
--- OUTSIDE RECORDS SUMMARY | 2023-05-04 12:22 | XMS_ITS | Continuity of Care Document ---
Author Name Unknown Organization [facility] Address [address] [place] [address] Care Team Providers Care Valve Fitter Name Role Phone Primeau [facility] Primary Care Physician Encounter [facility] [id number] Date(s): 01/13/23 - 01/13/[address] [address] Discharge Disposition: Home or Self Care Attending Physician: Bradly Mac MD Admitting Physician: Bradly Mac MD Referring Physician: Bradly Mac MD Allergies, Adverse Reactions, Alerts Substance Reaction Severity Status LATEX Active divalproex sodium Unknown Active Assessment and Plan Diagnostic Tests Pending * Dexamethasone [place] 01/13/23 Medications Albuterol (Eqv-ProAir HFA) 90 mcg/inh inhalation [...] 0 Refill(s) Start Date: 06/13/22 Status: Ordered Lifetime / 99 Lifetime / 99, PAP Supplies Request. 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 Patient did well with a large cushion of the Simplus full facemask at the titration study. However he only has a medium at home. He says [place] has not sent the right size for [...] send the order to request this to [facility]. If he is not yet due for new machine we will check again at his future follow-up. Plan for 6-month follow-up so we can check to see how he is doing either on the new BiPAP machine or the recall replacement BiPAP machine through manufacture, transition to care to Elodia Smith DIGITAL COMMUNICATIONS MANAGER Results Laboratory List Name Date [facility] 01/13/23 Most recent to oldest [Reference Range]: 1 [facility] [See Note mcg/dL] 13 mcg/dL 1 *NA* (01/13/23 7:26 AM) 1Result Comment: NOTE: Reference Ranges (from [facility]): Collected Before 10:00 AM: 4 - 23 ug/dL Collected After 5:00 PM: 2 - 14 ug/dL The results of this assay can be falsely elevated due to the consumption of Biotin. Test performed or referred by The [address] [address] Social History Social History Type Response Tobacco Never tobacco user T obacco Use:. Sex Male Patient Care team information Care Team Personnel Name: Elodia Craig DIGITAL COMMUNICATIONS MANAGER Position: Physician Member Role: Nurse Practitioner Address: Address: [address] [place] [id number] Name: Diane [facility] Position: No Access Member Role: Primary Care Physician Address: Address: [address] [address]- [place] Care Team Related Persons Name: MELISSA ELLIOTT Address: Home
--- OUTSIDE RECORDS SUMMARY | 2023-05-04 12:22 | XMS_ITS | Continuity of Care Document ---
Author Name Unknown Organization [facility] Address [address] [place] [address] Care Team Providers Care Medical Terminologist Name Role Phone Primeau [facility]): [facility] - 01[facility]14[facility] [address] Encounter Diagnosis Obstructive sleep apnea(Discharge Diagnosis) - 12/19/22 Discharge Disposition: Home or Self Care Attending Physician: Monica Lim MD Admitting Physician: Monica Lim MD Referring Physician: Monica Lim MD Allergies, Adverse Reactions, Alerts Substance Reaction Severity Status LATEX Active divalproex sodium Unknown Active Medications Albuterol (Eqv-ProAir HFA) 90 mcg/inh inhalation [...] Refill(s) Start Date: 06/13/22 Status: Ordered Lifetime Lifetime , PAP Supplies Request. 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 2Fsonja 12-23-2021 visit: 12/23/2021: Patient with history of [...] mask leak for which I advised his [facility] aide who helps him put on the mask every night work on tightening the straps Explained to patient that he does not need supplemental oxygen, we did this several times until he seemed to understand this. Patient did well with a large cushion of the Simplus full facemask at the titration study. However he only has a medium at home. He says [place] has not sent the right size for [...] send the order to request this to [facility]. If he is not yet due for new machine we will check again at his future follow-up. Plan for 6-month follow-up so we can check to see how he is doing either on the new BiPAP machine or the recall replacement BiPAP machine through manufacture, transition to care to Elodia Smith NP Social History Social History Type Response Tobacco Never tobacco user T obacco Use:. Sex Male Note * Renée Padilla: PERFORM Event Display: Progress Note - Specialties/Departments Authored Date: [id number] Patient Care team information Care Team Personnel Name: Kos[facility], Elodia L DRYWALL FINISHING FOREMAN Position: Physician Member Role: Nurse Practitioner Address: Address: [address] [place] [phone] Name: Myles Valdovinos MD Position: No Access Member Role: Primary Care Physician Address: Address: [address] [address]- [place] Care Team Related Persons Name: MELISSA ELLIOTT Address: Home
--- OUTSIDE RECORDS SUMMARY | 2023-05-04 12:22 | XMS_ITS | Continuity of Care Document ---
Author Name Unknown Organization [facility] Address [address] [place] [address] Care Team Providers Care Director Airport Name Role Phone Primeau Myles SHEPARD Primary Care Physician Encounter [facility] [id number] Date(s): 04/22/23 - 04/22/[address] [address] Discharge Disposition: Home or Self Care Attending Physician: Curtis Orta DO Admitting Physician: Curtis Orta DO Referring Physician: Curtis Orta DO Allergies, Adverse Reactions, Alerts Substance Reaction Severity Status LATEX Active divalproex sodium Unknown Active Assessment and Plan Future Appointments Medications Albuterol (Eqv-ProAir HFA) 90 mcg/inh inhalation [...] Status: Ordered Lifetime / 99 Lifetime / , PAP Supplies Request. 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 Patient did well with a large cushion of the Simplus full facemask at the titration study. However he only has a medium at home. He says [place] has not sent the right size for [...] send the order to request this to [facility]. If he is not yet due for new machine we will check again at his future follow-up. Plan for 6-month follow-up so we can check to see how he is doing either on the new BiPAP machine or the recall replacement BiPAP machine through manufacture, transition to care to Elodia Smith INSTRUCTIONAL TECHNOLOGY TEACHER Results Laboratory List Name Date Electrolyte Panel 04/22/23 Most recent to oldest [Reference Range]: 1 Potassium Level [3.5-5.1 mmol/L] 3.5 mmo l/L (04/22/23 9:53 AM) Sodium Level [136-145 mmol/L] 149 mmol/L *HI* (04/22/23 9:53 AM) CO2 [21-32 mmol/L] 30 mmol/L (04/22/23 9:53 AM) Chloride Level [98-107 mmol/L] 111 mmol/ L *HI* (04/22/23 9:53 AM) Social History Social History Type Response Tobacco Never tobacco user T obacco Use:. Sex Male Patient Care team information Care Team Personnel Name: Curtis Orta DO Position: No Access Member Role: Informed Provider Address: Address: Endocrinology [address] [place] [address]- Name: Elodia Craig INSTRUCTIONAL TECHNOLOGY TEACHER Position: Physician Member Role: Nurse Practitioner Address: Address: [address] [place] [phone] Name: Diane Myles SHEPARD MD Position: No Access Member Role: Primary Care Physician Address: Address: [facility] [address] [place] [address]- [place] Care Team Related Persons Name: MICHELLE RUDOLPH Name: SHINE ELLIOTT
[2023-05-04 19:52] LABS: HCT 38.7 % (40.0-50.0); HGB 12.9 g/dL (13.5-17.5); MCH 32.6 pg (27.0-33.0); MCHC 33.3 % (32.0-36.0); MCV 98 fL (80-95); MPV 9.9 fL (8.0-11.0); Platelet Count 204 10^3/uL (130-400); RBC 3.96 10^6/uL (4.36-5.78); RDW 12.5 % (11.8-14.1); WBC 6.87 10^3/uL (4.4-10.8)
== END 2023-05-04 12:18 | disposition home or self-care (01) ==
LOC: NCHCN 12:17
PROVIDERS: PCP Internal Medicine; Visit Provider Nurse Practitioner Family
DX: F20.9 Schizophrenia, unspecified (principal); Z79.899 Other long term (current) drug therapy; Z51.81 Encounter for therapeutic drug level monitoring
CPT/HCPCS: 85027

== ENCOUNTER 2023-05-11 11:22 | Outpatient (REF) | payer MEDICARE, MEDICAID, SELFPAY ==
[2023-05-11 19:13] LABS: Abs Immature Grans 0.05 10^3/uL (0.0-0.06); Absolute Basophil Count 0.04 10^3/uL (0.0-0.2); Absolute Eosinophil Count 0.02 10^3/uL (0.0-0.7); Absolute Lymphocyte Count 1.58 10^3/uL (1.2-3.4); Absolute Monocyte Count 0.68 10^3/uL (0.1-0.8); Absolute Neutrophil Count 6.53 10^3/uL (1.2-6.7); Basophils % 0.4; Eosinophils % 0.2; HCT 36.6 % (40.0-50.0); HGB 12.8 g/dL (13.5-17.5); Immature Grans % 0.6; Lymphocytes % 17.8; MCH 33.4 pg (27.0-33.0); MCV 96 fL (80-95); MPV 9.7 fL (8.0-11.0); Monocytes % 7.6; Neutrophils % 73.4; Platelet Count 213 10^3/uL (130-400); RBC 3.83 10^6/uL (4.36-5.78); RDW 12.6 % (11.8-14.1); RDW-SD 43.6 fL
== END 2023-05-11 11:23 | disposition home or self-care (01) ==
LOC: LBN ADD 11:22
PROVIDERS: PCP Internal Medicine; Visit Provider Psychiatry & Neurology Psychiatry
DX: F20.9 Schizophrenia, unspecified (principal); Z79.899 Other long term (current) drug therapy
CPT/HCPCS: 85025

== ENCOUNTER 2023-06-26 12:34 | Outpatient (REF) | payer MEDICARE, MEDICAID, SELFPAY ==
[2023-06-26 19:08] LABS: Abs Immature Grans 0.06 10^3/uL (0.0-0.06); Absolute Basophil Count 0.05 10^3/uL (0.0-0.2); Absolute Eosinophil Count 0.01 10^3/uL (0.0-0.7); Absolute Lymphocyte Count 1.59 10^3/uL (1.2-3.4); Absolute Monocyte Count 0.62 10^3/uL (0.1-0.8); Absolute Neutrophil Count 5.47 10^3/uL (1.2-6.7); Basophils % 0.6; Eosinophils % 0.1; HCT 38.1 % (40.0-50.0); HGB 12.7 g/dL (13.5-17.5); Immature Grans % 0.8; Lymphocytes % 20.4; MCH 31.8 pg (27.0-33.0); MCHC 33.3 % (32.0-36.0); MCV 96 fL (80-95); MPV 9.5 fL (8.0-11.0); Monocytes % 7.9; Neutrophils % 70.2; Platelet Count 224 10^3/uL (130-400); RBC 3.99 10^6/uL (4.36-5.78); RDW 12.6 % (11.8-14.1); RDW-SD 43.9 fL
== END 2023-06-26 12:35 | disposition home or self-care (01) ==
LOC: NCHCN 12:34
PROVIDERS: PCP Internal Medicine; Visit Provider Nurse Practitioner Family
DX: Z51.81 Encounter for therapeutic drug level monitoring (principal)
CPT/HCPCS: 85025

== ENCOUNTER 2023-08-03 13:48 | Outpatient (REF) | payer MEDICARE, MEDICAID, SELFPAY ==
[2023-08-03 19:41] LABS: Hemoglobin A1C 5.4 % (<5.7)
[2023-08-03 19:42] LABS: Abs Immature Grans 0.07 10^3/uL (0.0-0.06); Absolute Basophil Count 0.04 10^3/uL (0.0-0.2); Absolute Eosinophil Count 0.02 10^3/uL (0.0-0.7); Absolute Monocyte Count 0.68 10^3/uL (0.1-0.8); Absolute Neutrophil Count 6.47 10^3/uL (1.2-6.7); Basophils % 0.4; Eosinophils % 0.2; HCT 41.6 % (40.0-50.0); HGB 13.9 g/dL (13.5-17.5); Immature Grans % 0.8; Lymphocytes % 18.9; MCH 32.6 pg (27.0-33.0); MCHC 33.4 % (32.0-36.0); MCV 98 fL (80-95); MPV 9.9 fL (8.0-11.0); Monocytes % 7.6; Neutrophils % 72.1; Platelet Count 245 10^3/uL (130-400); RBC 4.26 10^6/uL (4.36-5.78); RDW-SD 46.5 fL; WBC 8.98 10^3/uL (4.4-10.8)
[2023-08-03 19:48] LABS: Calculated LDL 88 mg/dL (<100); Cholesterol 133 mg/dL (<200); HDL Cholesterol 34 mg/dL (40-60); TSH (W/Ref FT4) 1.18 uIU/mL (0.36-3.74); Triglyceride 58 mg/dL (<150)
[2023-08-08 01:35] LABS: Clozapine 375 ng/mL (350-600); Clozapine+Norclozapine Total 530 ng/mL; Norclozapine 155 ng/mL
== END 2023-08-03 13:49 | disposition home or self-care (01) ==
LOC: NCHCN 13:48
PROVIDERS: PCP Internal Medicine; Visit Provider Nurse Practitioner Family
DX: I10 Essential (primary) hypertension (principal); F25.9 Schizoaffective disorder, unspecified; E66.9 Obesity, unspecified; Z51.81 Encounter for therapeutic drug level monitoring
CPT/HCPCS: 80061; 80159; 83036; 84443; 85025

== ENCOUNTER → 2023-08-31 15:37 | Outpatient (BNVA) | payer MEDICARE, MEDICAID, SELFPAY | PROVIDERS: PCP Internal Medicine; Referring Provider Internal Medicine; Visit Provider Podiatrist | DX: Z48.817 Encounter for surgical aftercare following surgery on the skin and subcutaneous tissue (principal); L60.0 Ingrowing nail | CPT/HCPCS: 99213 ==

== ENCOUNTER 2023-09-15 16:37 | Outpatient (REF) | payer MEDICARE, MEDICAID, SELFPAY ==
[2023-09-15 18:23] LABS: Abs Immature Grans 0.07 10^3/uL (0.0-0.06); Absolute Basophil Count 0.05 10^3/uL (0.0-0.2); Absolute Eosinophil Count 0.02 10^3/uL (0.0-0.7); Absolute Lymphocyte Count 1.94 10^3/uL (1.2-3.4); Absolute Monocyte Count 0.72 10^3/uL (0.1-0.8); Absolute Neutrophil Count 6.64 10^3/uL (1.2-6.7); Basophils % 0.5; Eosinophils % 0.2; HCT 41.6 % (40.0-50.0); HGB 14.1 g/dL (13.5-17.5); Immature Grans % 0.7; Lymphocytes % 20.6; MCH 33.7 pg (27.0-33.0); MCHC 33.9 % (32.0-36.0); MCV 100 fL (80-95); MPV 9.9 fL (8.0-11.0); Monocytes % 7.6; Neutrophils % 70.4; Platelet Count 271 10^3/uL (130-400); RBC 4.18 10^6/uL (4.36-5.78); RDW 13.2 % (11.8-14.1); RDW-SD 48.1 fL; WBC 9.44 10^3/uL (4.4-10.8)
== END 2023-09-15 16:38 | disposition home or self-care (01) ==
LOC: LBN 16:37
PROVIDERS: PCP Internal Medicine; Visit Provider Psychiatry & Neurology Psychiatry
DX: F25.9 Schizoaffective disorder, unspecified (principal); Z79.899 Other long term (current) drug therapy
CPT/HCPCS: 85025

== ENCOUNTER 2023-10-05 18:10 | Outpatient (REF) | payer MEDICARE, MEDICAID, SELFPAY ==
[2023-10-05 19:45] LABS: Abs Immature Grans 0.08 10^3/uL (0.0-0.06); Absolute Basophil Count 0.06 10^3/uL (0.0-0.2); Absolute Eosinophil Count 0.01 10^3/uL (0.0-0.7); Absolute Lymphocyte Count 1.81 10^3/uL (1.2-3.4); Absolute Monocyte Count 0.84 10^3/uL (0.1-0.8); Absolute Neutrophil Count 7.61 10^3/uL (1.2-6.7); Basophils % 0.6; Eosinophils % 0.1; HCT 41.1 % (40.0-50.0); HGB 13.6 g/dL (13.5-17.5); Immature Grans % 0.8; Lymphocytes % 17.4; MCHC 33.1 % (32.0-36.0); MCV 100 fL (80-95); MPV 10.2 fL (8.0-11.0); Monocytes % 8.1; Platelet Count 229 10^3/uL (130-400); RBC 4.12 10^6/uL (4.36-5.78); RDW 13.2 % (11.8-14.1); RDW-SD 48.3 fL; WBC 10.41 10^3/uL (4.4-10.8)
== END 2023-10-05 18:11 | disposition home or self-care (01) ==
LOC: NCHCN 18:10
PROVIDERS: PCP Internal Medicine; Visit Provider Internal Medicine
DX: F20.89 Other schizophrenia (principal); Z79.899 Other long term (current) drug therapy; D70.8 Other neutropenia
CPT/HCPCS: 85025

== ENCOUNTER 2023-11-04 13:10 | Outpatient (REF) | payer MEDICARE, MEDICAID, SELFPAY ==
[2023-11-04 21:13] LABS: ALT 22 U/L (16-63); AST 14 U/L (15-37); Albumin 3.3 g/dL (3.4-5.0); Alkaline Phosphatase 73 U/L (46-116); Anion Gap 6.6 mmol/L (3-11); BUN 29 mg/dL (7-18); Bilirubin, Total 0.3 mg/dL (0.2-1.0); CO2 27.4 mmol/L (21.0-32.0); CREATININE 0.9 mg/dL (0.70-1.30); Calcium 8.8 mg/dL (8.5-10.1); Chloride 109 mmol/L (98-107); Estimated GFR 109.36 (mL/min/1.73m2); Glucose 92 mg/dL (74-106); Potassium 4.1 mmol/L (3.5-5.1); Sodium 143 mmol/L (136-145); Total Protein 6.4 g/dL (6.4-8.2)
[2023-11-04 22:05] LABS: Hemoglobin A1C 5.1 % (<5.7)
== END 2023-11-04 13:11 | disposition home or self-care (01) ==
LOC: NCHCN 13:10
PROVIDERS: PCP Internal Medicine; Visit Provider Nurse Practitioner Family
DX: I10 Essential (primary) hypertension (principal); R79.89 Other specified abnormal findings of blood chemistry; E66.9 Obesity, unspecified
CPT/HCPCS: 80053; 83036

== ENCOUNTER 2023-12-08 12:05 | Outpatient (REF) | payer MEDICARE, MEDICAID, SELFPAY ==
[2023-12-08 18:59] LABS: Abs Immature Grans 0.11 10^3/uL (0.0-0.06); Absolute Basophil Count 0.07 10^3/uL (0.0-0.2); Absolute Eosinophil Count 0.01 10^3/uL (0.0-0.7); Absolute Lymphocyte Count 1.81 10^3/uL (1.2-3.4); Absolute Monocyte Count 0.78 10^3/uL (0.1-0.8); Absolute Neutrophil Count 6.93 10^3/uL (1.2-6.7); Basophils % 0.7; Eosinophils % 0.1; HCT 43.1 % (40.0-50.0); HGB 14.5 g/dL (13.5-17.5); Immature Grans % 1.1; Lymphocytes % 18.6; MCHC 33.6 % (32.0-36.0); MCV 98 fL (80-95); MPV 9.8 fL (8.0-11.0); Neutrophils % 71.5; Platelet Count 243 10^3/uL (130-400); RBC 4.39 10^6/uL (4.36-5.78); RDW 12.7 % (11.8-14.1); RDW-SD 45.5 fL; WBC 9.71 10^3/uL (4.4-10.8)
== END 2023-12-08 12:06 | disposition home or self-care (01) ==
LOC: LBN 12:05
PROVIDERS: PCP Internal Medicine; Visit Provider Psychiatry & Neurology Psychiatry
DX: F20.89 Other schizophrenia (principal); D70.8 Other neutropenia; Z79.899 Other long term (current) drug therapy
CPT/HCPCS: 85025

== ENCOUNTER 2024-01-05 18:49 | Outpatient (REF) | payer MEDICARE, MEDICAID, SELFPAY ==
[2024-01-05 18:53] LABS: Abs Immature Grans 0.12 10^3/uL (0.0-0.06); Absolute Basophil Count 0.05 10^3/uL (0.0-0.2); Absolute Eosinophil Count 0.01 10^3/uL (0.0-0.7); Absolute Monocyte Count 0.69 10^3/uL (0.1-0.8); Absolute Neutrophil Count 7.46 10^3/uL (1.2-6.7); Basophils % 0.5; Eosinophils % 0.1; HCT 45.4 % (40.0-50.0); Immature Grans % 1.2; Lymphocytes % 16.9; MCV 100 fL (80-95); MPV 9.5 fL (8.0-11.0); Monocytes % 6.9; Neutrophils % 74.4; Platelet Count 231 10^3/uL (130-400); RBC 4.54 10^6/uL (4.36-5.78); RDW 12.8 % (11.8-14.1); RDW-SD 47.3 fL; WBC 10.03 10^3/uL (4.4-10.8)
== END 2024-01-05 18:50 | disposition home or self-care (01) ==
LOC: NCHCN 18:49
PROVIDERS: PCP Internal Medicine; Visit Provider Psychiatry & Neurology Psychiatry
DX: F20.9 Schizophrenia, unspecified (principal); Z79.899 Other long term (current) drug therapy
CPT/HCPCS: 85025

== ENCOUNTER 2024-01-26 15:40 | Outpatient (REF) | payer MEDICARE, MEDICAID, SELFPAY ==
[2024-01-26 18:42] LABS: Bilirubin Negative (Negative); Blood Negative (Negative); Clarity Clear (Clear); Glucose 500 mg/dL (Negative); Ketones Trace mg/dL (Negative); Leukocyte Esterase Negative (Negative); Nitrite Negative (Negative)
== END 2024-01-26 15:41 | disposition home or self-care (01) ==
LOC: NCHCN 15:40
PROVIDERS: PCP Internal Medicine; Visit Provider Nurse Practitioner Family
DX: R82.998 Other abnormal findings in urine (principal); M54.89 Other dorsalgia
CPT/HCPCS: 81003

== ENCOUNTER 2024-01-27 09:46 | Outpatient (REF) | payer MEDICARE, MEDICAID, SELFPAY ==
[2024-01-27 20:44] LABS: Abs Immature Grans 0.08 10^3/uL (0.0-0.06); Absolute Basophil Count 0.03 10^3/uL (0.0-0.2); Absolute Eosinophil Count 0.01 10^3/uL (0.0-0.7); Absolute Lymphocyte Count 1.98 10^3/uL (1.2-3.4); Absolute Monocyte Count 0.62 10^3/uL (0.1-0.8); Absolute Neutrophil Count 5.88 10^3/uL (1.2-6.7); Basophils % 0.3; Eosinophils % 0.1; HCT 43.3 % (40.0-50.0); HGB 14.6 g/dL (13.5-17.5); Immature Grans % 0.9; MCH 33.4 pg (27.0-33.0); MCHC 33.7 % (32.0-36.0); MCV 99 fL (80-95); MPV 9.6 fL (8.0-11.0); Monocytes % 7.2; Neutrophils % 68.5; Platelet Count 222 10^3/uL (130-400); RBC 4.37 10^6/uL (4.36-5.78); RDW 12.6 % (11.8-14.1); RDW-SD 46.2 fL
[2024-01-27 20:52] LABS: Anion Gap 7.2 mmol/L (3-11); BUN 24 mg/dL (7-18); CO2 28.8 mmol/L (21.0-32.0); CREATININE 0.9 mg/dL (0.70-1.30); Calcium 9.2 mg/dL (8.5-10.1); Chloride 112 mmol/L (98-107); Estimated GFR 109.36 (mL/min/1.73m2); Glucose 95 mg/dL (74-106); Potassium 4.3 mmol/L (3.5-5.1); Sodium 148 mmol/L (136-145)
[2024-01-27 21:12] LABS: Hemoglobin A1C 5.5 % (<5.7)
== END 2024-01-27 09:47 | disposition home or self-care (01) ==
LOC: NCHCN 09:46
PROVIDERS: Psychiatry & Neurology Psychiatry; PCP Internal Medicine; Visit Provider Nurse Practitioner Family
DX: R81 Glycosuria (principal); F20.89 Other schizophrenia; Z79.899 Other long term (current) drug therapy
CPT/HCPCS: 80048; 83036; 85025

== ENCOUNTER 2024-02-29 14:05 | Outpatient (REF) | payer MEDICARE, MEDICAID, SELFPAY ==
[2024-02-29 19:27] LABS: Abs Immature Grans 0.09 10^3/uL (0.0-0.06); Absolute Basophil Count 0.05 10^3/uL (0.0-0.2); Absolute Eosinophil Count 0.01 10^3/uL (0.0-0.7); Absolute Lymphocyte Count 1.88 10^3/uL (1.2-3.4); Absolute Monocyte Count 0.73 10^3/uL (0.1-0.8); Absolute Neutrophil Count 6.52 10^3/uL (1.2-6.7); Basophils % 0.5 %; Eosinophils % 0.1 %; HCT 44.2 % (40.0-50.0); HGB 14.5 g/dL (13.5-17.5); Lymphocytes % 20.3 %; MCH 33.3 pg (27.0-33.0); MCHC 32.8 % (32.0-36.0); MCV 102 fL (80-95); MPV 9.7 fL (8.0-11.0); Monocytes % 7.9 %; Neutrophils % 70.2 %; Platelet Count 225 10^3/uL (130-400); RBC 4.35 10^6/uL (4.36-5.78); RDW 13.1 % (11.8-14.1); RDW-SD 48.7 fL; WBC 9.28 10^3/uL (4.4-10.8)
== END 2024-02-29 14:06 | disposition home or self-care (01) ==
LOC: NCHCN 14:05
PROVIDERS: Psychiatry & Neurology Psychiatry; PCP Internal Medicine; Visit Provider Nurse Practitioner Family
DX: F20.89 Other schizophrenia (principal); Z79.899 Other long term (current) drug therapy; Z51.81 Encounter for therapeutic drug level monitoring
CPT/HCPCS: 85025

== ENCOUNTER → 2024-03-08 11:07 | Outpatient (BNVA) | payer MEDICARE, MEDICAID, SELFPAY | PROVIDERS: PCP Internal Medicine; Referring Provider Internal Medicine; Visit Provider Podiatrist | DX: L60.0 Ingrowing nail (principal); M79.671 Pain in right foot | CPT/HCPCS: 11750 ==

== ENCOUNTER → 2024-04-04 14:52 | Outpatient (BNVA) | payer MEDICARE, MEDICAID, SELFPAY | PROVIDERS: PCP Internal Medicine; Referring Provider Internal Medicine; Visit Provider Podiatrist | DX: Q82.8 Other specified congenital malformations of skin (principal); L60.0 Ingrowing nail; M79.671 Pain in right foot | CPT/HCPCS: 17110 ==

== ENCOUNTER 2024-04-04 16:19 | Outpatient (REF) | payer MEDICARE, MEDICAID, SELFPAY ==
[2024-04-04 19:15] LABS: Absolute Basophil Count 0.05 10^3/uL (0.0-0.2); Absolute Eosinophil Count 0.01 10^3/uL (0.0-0.7); Absolute Lymphocyte Count 1.79 10^3/uL (1.2-3.4); Absolute Monocyte Count 0.68 10^3/uL (0.1-0.8); Absolute Neutrophil Count 6.19 10^3/uL (1.2-6.7); Basophils % 0.6 %; Eosinophils % 0.1 %; HCT 43.3 % (40.0-50.0); HGB 14.5 g/dL (13.5-17.5); Immature Grans % 1.1 %; Lymphocytes % 20.3 %; MCH 33.7 pg (27.0-33.0); MCHC 33.5 % (32.0-36.0); MCV 101 fL (80-95); MPV 9.8 fL (8.0-11.0); Monocytes % 7.7 %; Neutrophils % 70.2 %; Platelet Count 218 10^3/uL (130-400); RDW 13.2 % (11.8-14.1); WBC 8.82 10^3/uL (4.4-10.8)
== END 2024-04-04 16:20 | disposition home or self-care (01) ==
LOC: NCHCN 16:19
PROVIDERS: PCP Internal Medicine; Visit Provider Nurse Practitioner Family
DX: F31.81 Bipolar II disorder (principal); Z79.899 Other long term (current) drug therapy
CPT/HCPCS: 85025

== ENCOUNTER 2024-05-02 20:20 | Outpatient (REF) | payer MEDICARE, MEDICAID, SELFPAY ==
[2024-05-02 20:16] LABS: Abs Immature Grans 0.09 10^3/uL (0.0-0.06); Absolute Basophil Count 0.05 10^3/uL (0.0-0.2); Absolute Eosinophil Count 0.01 10^3/uL (0.0-0.7); Absolute Lymphocyte Count 1.65 10^3/uL (1.2-3.4); Absolute Neutrophil Count 5.74 10^3/uL (1.2-6.7); Basophils % 0.6 %; Eosinophils % 0.1 %; HCT 42.7 % (40.0-50.0); HGB 14.2 g/dL (13.5-17.5); Immature Grans % 1.1 %; MCH 33.7 pg (27.0-33.0); MCHC 33.3 % (32.0-36.0); MCV 101 fL (80-95); Monocytes % 8.5 %; Neutrophils % 69.7 %; Platelet Count 199 10^3/uL (130-400); RBC 4.21 10^6/uL (4.36-5.78); RDW 12.9 % (11.8-14.1); RDW-SD 48.4 fL; WBC 8.24 10^3/uL (4.4-10.8)
== END 2024-05-02 20:21 | disposition home or self-care (01) ==
LOC: NCHCN 20:20
PROVIDERS: PCP Internal Medicine; Visit Provider Nurse Practitioner Family
DX: F31.81 Bipolar II disorder (principal); Z79.899 Other long term (current) drug therapy
CPT/HCPCS: 85025

== ENCOUNTER 2024-06-01 18:29 | Outpatient (REF) | payer MEDICARE, MEDICAID, SELFPAY ==
[2024-06-01 20:35] LABS: Absolute Basophil Count 0.05 10^3/uL (0.0-0.2); Absolute Eosinophil Count 0.21 10^3/uL (0.0-0.7); Absolute Lymphocyte Count 1.59 10^3/uL (1.2-3.4); Absolute Monocyte Count 0.63 10^3/uL (0.1-0.8); Absolute Neutrophil Count 5.48 10^3/uL (1.2-6.7); Basophils % 0.6 %; Eosinophils % 2.6 %; HCT 43.9 % (40.0-50.0); HGB 14.6 g/dL (13.5-17.5); Immature Grans % 1.2 %; Lymphocytes % 19.7 %; MCH 34.5 pg (27.0-33.0); MCHC 33.3 % (32.0-36.0); MCV 104 fL (80-95); MPV 9.8 fL (8.0-11.0); Monocytes % 7.8 %; Neutrophils % 68.1 %; Platelet Count 213 10^3/uL (130-400); RBC 4.23 10^6/uL (4.36-5.78); RDW 12.9 % (11.8-14.1); RDW-SD 49.3 fL; WBC 8.06 10^3/uL (4.4-10.8)
== END 2024-06-01 18:30 | disposition home or self-care (01) ==
LOC: NCHCN 18:29
PROVIDERS: PCP Internal Medicine; Visit Provider Nurse Practitioner Family
DX: F31.81 Bipolar II disorder (principal); Z79.899 Other long term (current) drug therapy
CPT/HCPCS: 85025

== ENCOUNTER → 2024-07-05 13:29 | Outpatient (BNVA) | payer MEDICARE, MEDICAID, SELFPAY | PROVIDERS: PCP Internal Medicine; Referring Provider Internal Medicine; Visit Provider Podiatrist | DX: Q82.8 Other specified congenital malformations of skin (principal); L60.0 Ingrowing nail; M79.671 Pain in right foot | CPT/HCPCS: 11750; 17110 ==

== ENCOUNTER 2024-07-05 19:19 | Outpatient (REF) | payer MEDICARE, MEDICAID, SELFPAY ==
[2024-07-05 19:15] LABS: Absolute Basophil Count 0.03 10^3/uL (0.0-0.2); Absolute Eosinophil Count 0.01 10^3/uL (0.0-0.7); Absolute Lymphocyte Count 1.62 10^3/uL (1.2-3.4); Absolute Monocyte Count 0.64 10^3/uL (0.1-0.8); Absolute Neutrophil Count 5.75 10^3/uL (1.2-6.7); Basophils % 0.4 %; Eosinophils % 0.1 %; HCT 42.9 % (40.0-50.0); HGB 14.2 g/dL (13.5-17.5); Immature Grans % 1.2 %; Lymphocytes % 19.9 %; MCH 33.9 pg (27.0-33.0); MCHC 33.1 % (32.0-36.0); MCV 102 fL (80-95); MPV 9.9 fL (8.0-11.0); Monocytes % 7.9 %; Neutrophils % 70.5 %; Platelet Count 197 10^3/uL (130-400); RBC 4.19 10^6/uL (4.36-5.78); WBC 8.15 10^3/uL (4.4-10.8)
== END 2024-07-05 19:20 | disposition home or self-care (01) ==
LOC: NCHCN 19:19
PROVIDERS: PCP Internal Medicine; Visit Provider Nurse Practitioner Family
DX: F31.81 Bipolar II disorder (principal); Z79.899 Other long term (current) drug therapy
CPT/HCPCS: 85025

== ENCOUNTER → 2024-07-21 14:48 | Outpatient (BNVA) | payer MEDICARE, MEDICAID, SELFPAY | PROVIDERS: PCP Internal Medicine; Referring Provider Internal Medicine; Visit Provider Nurse Practitioner Family | DX: L60.0 Ingrowing nail (principal); M79.671 Pain in right foot; Q82.8 Other specified congenital malformations of skin | CPT/HCPCS: 99213 ==

== ENCOUNTER 2024-07-29 10:44 | Outpatient (CLI) | payer MEDICARE, MEDICAID, SELFPAY ==
--- NOTE | 2024-07-29 10:30 | RT.EKG_ITS ---
APPROVED REPORT Exam: Resting ECG Reason for Exam: follow up Patient Location: O HR:89 bpm ECG Measurements Heart Rate 89 AXIS [place] [id number] P [id number] QRSd 114 QRS 0 QT 363 T 153 QTc 442 Conclusion Atrial fibrillation...V-rate 70- 99, irreg A-activity Borderline intraventricular conduction delay...QRSd >112mS Nonspecific T abnormalities, lateral leads...T <-0.10mV, I aVL V5 V6
== END 2024-07-29 10:45 | disposition home or self-care (01) ==
LOC: DI.CARD 10:45
PROVIDERS: PCP Internal Medicine; Referring Provider Internal Medicine; Visit Provider Internal Medicine Cardiovascular Disease
DX: I48.91 Unspecified atrial fibrillation (principal)
CPT/HCPCS: 93010

== ENCOUNTER → 2024-07-29 10:44 | Outpatient (BNVA) | payer MEDICARE, MEDICAID, SELFPAY | PROVIDERS: PCP Internal Medicine; Referring Provider Internal Medicine; Visit Provider Internal Medicine Cardiovascular Disease | DX: I48.21 Permanent atrial fibrillation (principal); I42.8 Other cardiomyopathies; I10 Essential (primary) hypertension | CPT/HCPCS: 93005; 99213 ==

== ENCOUNTER 2024-08-02 13:01 | Outpatient (REF) | payer MEDICARE, MEDICAID, SELFPAY ==
[2024-08-02 19:14] LABS: Abs Immature Grans 0.12 10^3/uL (0.0-0.06); Absolute Basophil Count 0.05 10^3/uL (0.0-0.2); Absolute Eosinophil Count 0.02 10^3/uL (0.0-0.7); Absolute Lymphocyte Count 1.75 10^3/uL (1.2-3.4); Absolute Monocyte Count 0.82 10^3/uL (0.1-0.8); Absolute Neutrophil Count 6.18 10^3/uL (1.2-6.7); Basophils % 0.6 %; Eosinophils % 0.2 %; HCT 44.6 % (40.0-50.0); HGB 14.8 g/dL (13.5-17.5); Immature Grans % 1.3 %; Lymphocytes % 19.6 %; MCHC 33.2 % (32.0-36.0); MCV 103 fL (80-95); MPV 9.7 fL (8.0-11.0); Monocytes % 9.2 %; Neutrophils % 69.1 %; Platelet Count 233 10^3/uL (130-400); RBC 4.35 10^6/uL (4.36-5.78); RDW 12.9 % (11.8-14.1); RDW-SD 48.9 fL; WBC 8.94 10^3/uL (4.4-10.8)
== END 2024-08-02 13:02 | disposition home or self-care (01) ==
LOC: NCHCN 13:01
PROVIDERS: PCP Internal Medicine; Visit Provider Nurse Practitioner Family
DX: Z51.81 Encounter for therapeutic drug level monitoring (principal)
CPT/HCPCS: 85025

== ENCOUNTER 2024-09-06 16:41 | Outpatient (REF) | payer MEDICARE, MEDICAID, SELFPAY ==
[2024-09-06 18:41] LABS: Abs Immature Grans 0.12 10^3/uL (0.0-0.06); Absolute Basophil Count 0.03 10^3/uL (0.0-0.2); Absolute Monocyte Count 0.51 10^3/uL (0.1-0.8); Absolute Neutrophil Count 5.37 10^3/uL (1.2-6.7); Basophils % 0.4 %; HCT 41.6 % (40.0-50.0); Immature Grans % 1.6 %; Lymphocytes % 19.9 %; MCH 34.1 pg (27.0-33.0); MCHC 33.7 % (32.0-36.0); MCV 102 fL (80-95); MPV 9.8 fL (8.0-11.0); Monocytes % 6.8 %; Neutrophils % 71.3 %; Platelet Count 202 10^3/uL (130-400); RDW-SD 48.4 fL; WBC 7.53 10^3/uL (4.4-10.8)
[2024-09-06 18:46] LABS: Calculated LDL 95 mg/dL (<100); Cholesterol 140 mg/dL (<200); HDL Cholesterol 36 mg/dL (40-60); Triglyceride 49 mg/dL (<150)
== END 2024-09-06 16:42 | disposition home or self-care (01) ==
LOC: NCHCN 16:41
PROVIDERS: PCP Internal Medicine; Visit Provider Nurse Practitioner Family
DX: I10 Essential (primary) hypertension (principal); E66.9 Obesity, unspecified; F31.81 Bipolar II disorder; Z79.899 Other long term (current) drug therapy
CPT/HCPCS: 80061; 85025

== ENCOUNTER 2024-09-27 17:17 | Outpatient (REF) | payer MEDICARE, MEDICAID, SELFPAY ==
[2024-09-27 19:50] LABS: Abs Immature Grans 0.15 10^3/uL (0.0-0.06); Absolute Basophil Count 0.05 10^3/uL (0.0-0.2); Absolute Lymphocyte Count 1.38 10^3/uL (1.2-3.4); Absolute Monocyte Count 0.66 10^3/uL (0.1-0.8); Absolute Neutrophil Count 7.03 10^3/uL (1.2-6.7); Basophils % 0.5 %; HCT 41.2 % (40.0-50.0); HGB 13.7 g/dL (13.5-17.5); Immature Grans % 1.6 %; Lymphocytes % 14.9 %; MCH 34.3 pg (27.0-33.0); MCHC 33.3 % (32.0-36.0); MCV 103 fL (80-95); MPV 9.3 fL (8.0-11.0); Monocytes % 7.1 %; Neutrophils % 75.9 %; Platelet Count 213 10^3/uL (130-400); RBC 3.99 10^6/uL (4.36-5.78); RDW 13.3 % (11.8-14.1); RDW-SD 50.3 fL; WBC 9.27 10^3/uL (4.4-10.8)
== END 2024-09-27 17:18 | disposition home or self-care (01) ==
LOC: NCHCN 17:17
PROVIDERS: PCP Internal Medicine; Visit Provider Nurse Practitioner Family
DX: F31.81 Bipolar II disorder (principal)
CPT/HCPCS: 85025

== ENCOUNTER 2024-10-27 01:46 | Outpatient (CLI) | payer MEDICARE, MEDICAID, SELFPAY ==
--- NOTE | 2024-10-27 | DI.US_ITS ---
Exam(s) US RENAL EXAM: US RENAL CLINICAL HISTORY: ACUTE CYSTITIS W/O HEMATURIA N30.00. TECHNIQUE: Pelaez scale, color and spectral Doppler were used. COMPARISON: No exams were available for comparison FINDINGS: Right kidney: 12.4cm Echogenicity: Normal Hydronephrosis: No Cyst or mass: No Nephrolithiasis: No Left kidney: 12.6cm Echogenicity: Normal Hydronephrosis: No Cyst or mass: No Nephrolithiasis: No Bladder:Normal. Prevoid vol: 519 cc Postvoid vol:3 cc IMPRESSION: Negative renal ultrasound. DATA REPOSITORY:
== END 2024-10-27 02:06 ==
LOC: DI 01:46
PROVIDERS: PCP Internal Medicine; Visit Provider Nurse Practitioner Family
DX: N30.00 Acute cystitis without hematuria (principal)
CPT/HCPCS: 76770

== ENCOUNTER 2024-10-31 16:24 | Outpatient (REF) | payer MEDICARE, MEDICAID, SELFPAY ==
[2024-10-31 19:13] LABS: Abs Immature Grans 0.05 10^3/uL (0.0-0.06); Absolute Basophil Count 0.03 10^3/uL (0.0-0.2); Absolute Lymphocyte Count 1.25 10^3/uL (1.2-3.4); Absolute Monocyte Count 0.67 10^3/uL (0.1-0.8); Absolute Neutrophil Count 5.88 10^3/uL (1.2-6.7); Basophils % 0.4 %; HCT 42.2 % (40.0-50.0); HGB 14.5 g/dL (13.5-17.5); Immature Grans % 0.6 %; Lymphocytes % 15.9 %; MCH 34.9 pg (27.0-33.0); MCHC 34.4 % (32.0-36.0); MCV 102 fL (80-95); MPV 10.5 fL (8.0-11.0); Monocytes % 8.5 %; Neutrophils % 74.6 %; Platelet Count 188 10^3/uL (130-400); RBC 4.15 10^6/uL (4.36-5.78); RDW 13.4 % (11.8-14.1); RDW-SD 50.4 fL; WBC 7.88 10^3/uL (4.4-10.8)
== END 2024-10-31 16:25 | disposition home or self-care (01) ==
LOC: NCHCN 16:24
PROVIDERS: PCP Internal Medicine; Visit Provider Nurse Practitioner Family
DX: F31.81 Bipolar II disorder (principal)
CPT/HCPCS: 85025

== ENCOUNTER 2024-11-13 13:23 | Emergency (ER) | payer MEDICARE, MEDICAID, SELFPAY ==
[2024-11-13 13:23] VITALS: BP 176/131; PULSE 70; RESP 16; TEMP 36.4; O2SAT 95
--- NOTE | 2024-11-13 13:30 | DI.CT_ITS ---
Exam(s) CT HEAD CERVICAL SPINE WO EXAM: CT HEAD CERVICAL SPINE WO CLINICAL HISTORY: fall, pain. TECHNIQUE: Imaging Protocol: Axial computed tomography images with coronal and sagittal reformatted images were created and reviewed COMPARISON: CT CT HEAD CERVICAL SPINE WO from 03/02/2022 FINDINGS: Head CT Ventricles and Extra axial spaces: Normal in size and morphology for the patient's age. Hemorrhage: None. Cerebral parenchyma: No evidence of mass or acute infarct. Midline shift: None. Brainstem/Cerebellum: Normal. Calvarium: Normal. Visualized Paranasal sinuses/Mastoids: Mucous retention cyst left maxillary sinus. Mild mucous reten tion in the ethmoid sinuses. Soft tissues: Unremarkable. Cervical Spine CT BONES: Vertebral body heights are maintained. Alignment is normal. There is no evidence of acute frac ture. Degenerative disc changes and facet degenerative changes are seen . SOFT TISSUES: No paraspinal hematoma. The airway appears intact. Stable dense benign appearing calci fication in the left lobe of the thyroid. No pneumothorax is seen at the lung apices. IMPRESSION: Head CT: No acute abnormality. C-spine CT: Degenerative changes, no acute abnormality. RADIATION DOSE DELIVERED: Total DLP DATA REPOSITORY: All CT scans at this facility are submitted to the National Radiology Data Registry (NRDR) Dose Index Registry (DIR) with the [employer] (ACR). RADIATION OPTIMIZATION: All CT scans at this facility use at least one of these dose optimization te chniques: automated exposure control; mA and/or kV adjustment per patient size (includes targeted exa ms where dose is matched to clinical indication); or iterative reconstruction.
--- NOTE | 2024-11-13 13:30 | DI.RAD_ITS ---
Exam(s) XR KNEE RT 3V AP,LAT,DEYSI EXAM: XR KNEE RT 3V AP,LAT,DEYSI CLINICAL HISTORY: pain s/p fall. TECHNIQUE: 2D digital imaging was performed. Three views. COMPARISON: CR,XR XR KNEE LT 3V AP,LAT,DEYSI from 11/13/2024 FINDINGS: BONES: No acute fracture is present. No bony destructive lesion is seen. Patellar enthesophytes. JOINTS: The knee is normally aligned. No joint effusion is seen. Mild degenerative changes. Joint spaces are maintained. SOFT TISSUE: Soft tissue edema. Venous varicosities in the medial lower thigh. IMPRESSION: No acute abnormality. DATA REPOSITORY: RADIATION DOSE DELIVERED:
--- NOTE | 2024-11-13 13:30 | DI.RAD_ITS ---
Exam(s) XR KNEE LT 3V AP,LAT,DEYSI EXAM: XR KNEE LT 3V AP,LAT,DEYSI CLINICAL HISTORY: pain s/p fall. TECHNIQUE: 2D digital imaging was performed. Three views. COMPARISON: CR,XR XR KNEE RT 3V AP,LAT,DEYSI from 11/13/2024 FINDINGS: Exam limited by overlying clothing. BONES: No acute fracture is present. Chronic appearing bone lesion in the proximal tibial metaphysi s. Patellar enthesophyte. Enthesophyte at tibial tubercle. JOINTS: The knee is normally aligned. No joint effusion is seen. The joint spaces are maintained. SOFT TISSUE: Edema. IMPRESSION: No acute abnormality. DATA REPOSITORY: RADIATION DOSE DELIVERED:
--- NOTE | 2024-11-13 13:30 | DI.RAD_ITS ---
Exam(s) XR CHEST 2V PA LATERAL EXAM: XR CHEST 2V PA LATERAL CLINICAL HISTORY: ?pneumonia TECHNIQUE: 2D digital imaging was performed. Two views. COMPARISON: CR XR CHEST 2V PA LATERAL from 03/06/2022 FINDINGS: The exam is extremely limited by expiratory changes on both views, worse on the lateral. HEART: Enlarged. The heart size was normal on the prior exam. The cardiac silhouette occupies is ne bianca in the entire left side of the chest. Left-sided infiltrates are not excluded. Small Aorta: Not dilated. PULMONARY VASCULATURE: Normal. MEDIASTINUM: Unremarkable. LUNGS: Clear. PLEURAL SPACE: No pleural effusion or pneumothorax. BONE:Unremarkable for age. SOFT TISSUES: Unremarkable. IMPRESSION: Extremely limited exam. Enlarged cardiac silhouette. The right lung is grossly clear. Left lung ca nnot be evaluated. DATA REPOSITORY: RADIATION DOSE DELIVERED:
--- NOTE | 2024-11-13 13:41 | ED.GENADUL_ITS ---
Discharge Plan Disposition Patient Disposition: Home Condition: Stable Discharge Details Clinical Impression: Fall, Contusion of knee, Contusion of foot Primary Care Provider: Myles Contreras ED Provider: Abhijeet Peters [place] Meds and New Rx's Prescriptions: Continued benztropine 2 mg tablet 2 mg PO BID perphenazine 8 mg tablet 16 mg PO QID Minerin Creme Cream 1 applic topical QID acetaminophen 325 mg tablet 650 mg PO TID PRN Patient Comments: 1-2 tabs polyethylene glycol 3350 [Miralax] 17 gram/dose powder 17 g PO DAILY spironolactone [Aldactone] 50 mg tablet 275 mg PO BID Lactobacillus acidophilus 100 mg (1 billion cell) capsule 100 mmu cells PO DAILY L-Carnitine 500 mg tablet 500 mg PO DAILY Rx Instructions: must administer with a meal/food pantoprazole [Protonix] 40 mg tablet,delayed release (DR/EC) 40 mg PO QAM cholecalciferol (vitamin D3) 25 mcg (1,000 unit) capsule 25 mcg PO QAM Jardiance 10 mg tablet 10 mg PO DAILY carvedilol 25 mg tablet 25 mg PO BID Rx Instructions: must administer with a meal/food docusate sodium 100 mg capsule 100 mg PO BID Eliquis 5 mg tablet 5 mg PO BID calcium carbonate [Calcium 500] 500 mg calcium (1,250 mg) tablet,chewable 500 mg PO QID PRN ferrous sulfate 325 mg (65 mg iron) tablet 325 mg PO .qod Patient Comments: MWF fluticasone propionate 0.05 % cream 1 applic topical QD-BID PRN Eucerin Advanced Repair Cream 1 applic topical PRN terbinafine HCl [Athlete's Foot (terbinafine)] 1 % cream 1 applic topical BID urea 40 % cream 1 applic topical DAILY Qty: 28.35 3RF torsemide 10 mg tablet 5 mg PO DAILY clozapine 200 mg tablet 100 mg PO BID Patient Comments: 100mg qam 200mg qhs Rx Instructions: 100 mg q am 200 mg qhs lorazepam 1 mg tablet 0.5 mg PO BID PRN Rx Instructions: 1 mg daily, 1/2 mg TID mupirocin 2 % ointment 1 applic topical TID oxcarbazepine [Oxtellar XR] 300 mg tablet extended release 24 hr 300 mg PO BID Rx Instructions: must be taken on empty stomach; no food at least 2 hrs before or 1 hr after dose capsaicin [Capzasin-HP] 0.1 % Cream 1 applic TOPICAL BID PRN Acidophilus Capsule 100 mg PO DAILY cholecalciferol (vitamin D3) [Vitamin D3] 25 mcg (1,000 unit) Capsule 25 mcg PO DAILY losartan [Cozaar] 25 mg tablet 25 mg PO DAILY aspirin [Adult Aspirin Regimen] 81 mg tablet,delayed release (DR/EC) 81 mg PO DAILY metoprolol succinate 25 mg tablet extended release 24 hr 75 mg PO BID Discharge Instructions Additional Instructions: I do not see any broken bones on your x-rays Follow-up with your paleologist and primary If you feel more ill or develop new symptoms such as high fevers or difficulty breathing return to the emergency department for HPI General Mode of arrival: EMS . Date/Time Provider Initiated Documentation: 11/13/24 13:34 . Information obtained by: patient and EMS . History of Present Illness 44 year old M presents to the emergency department with the chief complaint of fall, bilateral knee pain, described as moderate, Quality is described as aching, Patient started experiencing this hour(s) (1) and it has been constant. No relieving factors improve symptom(s), No exacerbating factors reported . Patient notes other (general weakness). Patient did receive the following treatments prior to arrival, none Related Data Home Medications ?Medication ?Instructions ?Recorded ?Confirmed Lactobacillus acidophilus 100 mg PO DAILY 05/07/21 11/13/24 (Acidophilus capsule) cholecalciferol (vitamin D3) 25 25 mcg PO DAILY 05/07/21 11/13/24 mcg (1,000 unit) capsule (Vitamin D3) capsaicin 0.1 % topical cream 1 applic topical BID PRN 05/11/21 11/13/24 (Capzasin-HP) torsemide 10 mg tablet 5 mg PO DAILY 08/23/21 11/13/24 polyethylene glycol 3350 17 17 g PO DAILY 12/15/22 11/13/24 gram/dose oral powder (Miralax) acetaminophen 325 mg tablet 650 mg PO TID PRN 01/29/23 11/13/24 lanolin alcohols-mineral 1 applic topical QID 01/29/23 11/13/24 oil-w.petrolatum-ceresin topical cream (Minerin Creme topical) benztropine 2 mg tablet 2 mg PO BID 02/06/23 11/13/24 perphenazine 8 mg tablet 16 mg PO QID 02/06/23 11/13/24 Lactobacillus acidophilus 100 mg 100 mmu cells PO DAILY 03/22/24 11/13/24 (1 billion cell) capsule apixaban 5 mg tablet (Eliquis) 5 mg PO BID 03/22/24 11/13/24 calcium carbonate (Calcium 500) 500 mg PO QID PRN 03/22/24 11/13/24 carvedilol 25 mg tablet 25 mg PO BID 03/22/24 11/13/24 cholecalciferol (vitamin D3) 25 25 mcg PO QAM 03/22/24 11/13/24 mcg (1,000 unit) capsule docusate sodium 100 mg capsule 100 mg PO BID 03/22/24 11/13/24 emollient combination no.119 1 applic topical PRN 03/22/24 11/13/24 (Eucerin Advanced Repair topical cream) empagliflozin 10 mg tablet 10 mg PO DAILY 03/22/24 11/13/24 (Jardiance) ferrous sulfate 325 mg (65 mg 325 mg PO .qod 03/22/24 11/13/24 iron) tablet fluticasone propionate 0.05 % 1 applic topical QD-BID PRN 03/22/24 11/13/24 topical cream levocarnitine 500 mg tablet 500 mg PO DAILY 03/22/24 11/13/24 (L-Carnitine) pantoprazole 40 mg tablet,delayed 40 mg PO QAM 03/22/24 11/13/24 release (Protonix) spironolactone 50 mg tablet 275 mg PO BID 03/22/24 11/13/24 (Aldactone) terbinafine HCl 1 % topical cream 1 applic topical BID 03/22/24 11/13/24 (Athlete's Foot (terbinafine)) urea 40 % topical cream 1 applic topical DAILY #28.35 grams 04/04/24 11/13/24 clozapine 200 mg tablet 100 mg PO BID 09/30/24 11/13/24 lorazepam 1 mg tablet 0.5 mg PO BID PRN 09/30/24 11/13/24 mupirocin 2 % topical ointment 1 applic topical TID 09/30/24 11/13/24 oxcarbazepine 300 mg 300 mg PO BID 09/30/24 11/13/24 tablet,extended release 24 hr (Oxtellar XR) aspirin 81 mg tablet,delayed 81 mg PO DAILY 11/13/24 11/13/24 release (Adult Aspirin Regimen) losartan 25 mg tablet (Cozaar) 25 mg PO DAILY 11/13/24 11/13/24 metoprolol succinate 25 mg 75 mg PO BID 11/13/24 11/13/24 tablet,extended release 24 hr Previous Rx's ?Medication ?Instructions ?Recorded urea 40 % topical cream 1 applic topical DAILY #28.35 grams 04/04/24 Allergies Allergy/AdvReac Type Severity Reaction Status Date / Time latex Allergy Severe rash, Verified 11/13/24 13:39 difficulty breathing divalproex sodium (From AdvReac [place] Verified 11/13/24 13:39 Depakote) levels too high General Stated Complaint: Orthopedic CONNER: 4 Review of Systems All systems reviewed & are unremarkable except as noted in HPI and below Constitutional Constitutional: Denies chills, Denies fever(s) and Reports weakness Cardiovascular Cardiovascular: Denies chest pain and Denies dyspnea Respiratory Respiratory: Denies cough and Denies dyspnea Gastrointestinal Gastrointestinal: Denies abdominal pain, Denies nausea and Denies vomiting Neurologic Neurologic: Reports weakness Exam Const General: no acute distress Orientation: alert [facility] Head: normal to inspection Ears: external ears normal General nose exam: external nose normal Mouth: moist mucous membranes Eyes General: appearance normal, both eyes and all related structures Neck Neck: normal visual inspection Resp Effort & Inspection: normal respiratory effort and able to speak in complete sentences Auscultation: clear to auscultation bilaterally Cardio Jugular venous pressure: no JVD Rate: regular rate Heart Sounds: no murmurs GI Palpation: soft and nontender Skin General skin exam: no rashes or lesions noted Neuro General: patient alert Extrem General: capillary refill normal Psych Mental Status: mental status grossly normal Course Vital Signs Vital signs: Vital Signs Temperature 36.4 C 11/13/24 13:23 Pulse 70 11/13/24 13:23 Respiratory Rate 16 11/13/24 13:23 Blood Pressure 176/131 H 11/13/24 13:23 Pulse Oximetry 95 11/13/24 13:23 Temperature 36.4 C 11/13/24 13:23 Temperature Source Temporal Artery Scan 01/19/25 13:23 Pulse 70 11/13/24 13:23 Respiratory Rate 16 11/13/24 13:23 Blood Pressure 176/131 H 11/13/24 13:23 Blood Pressure Position Supine 11/13/24 13:23 Pulse Oximetry 95 11/13/24 13:23 Oxygen Delivery Method Room Air 11/13/24 13:23 Oxygen Flow Rate 0 11/13/24 13:23 Comment hx a-fib HR b/t 57 and 112 11/13/24 13:23 Medical Decision Making 44-year-old male with a history of bipolar, schizoaffective disorder, nonischemic cardiomyopathy, A-fib who comes in with EMS after he slipped and fell out of a chair in his bathroom. He apparently landed on his bilateral knees and had no loss of consciousness per staff there. Patient is alert and does know his name and where he is he is not sure of the year but apparently this is his baseline. He is very slow to answer questions which again is reportedly his baseline. He states his anterior bilateral knees are in pain. He does not visible significant deformities. He has tenderness over the anterior knees bilaterally. He has intact distal sensation and pulses. He has no tenderness elsewhere in the leg or hips other then some mild right big toe pain without significant palpable or visible deformities. He has an abrasion of the right arm but says it does not hurt any full range of motion of the arm. Given he is anticoagulated with the fall I will proceed with a CT head and also C-spine to evaluate for fractures and TBI. Will obtain x-rays of his bilateral knees and right foot. He says that he generally just feels mildly weak. He has no unilateral deficits to suggest CVA. I will check a CBC to evaluate for anemia and a CMP to evaluate for electrolyte abnormalities. Will also obtain chest x-ray to exclude pneumonia and also a Fluvid Patient also began complaining of left foot pain as well in his mid medial foot with no palpable or visible deformity so that x-ray was added on. I do not see any acute findings on his knees or foot x-rays. His chest x-ray shows on my read cardiomegaly, question retrocardiac opacity. He denies any fevers or cough so I doubt pneumonia. I did do a bedside ultrasound and he does have diminished EF which she has had on prior echoes and questionable trace pericardial effusion but no large pericardial effusion. His employment trainer from the facility he lives at states that he got released from [facility] a little under a month ago for his heart and has known cardiomegaly and diminished heart function per the worker. He has been fatigued since being back at his facility and is waiting to go to cardiac rehab. He is stable for discharge, advised to follow-up with his paleologist and PCP, return precaution Differential Diagnosis Differential Diagnosis: Fracture, anemia, electrolyte abnormality Quality:SDOH Health Related Social Needs: No Data to Display [facility] All Active Problems (Updated 11/13/24 @ 15:45 by Abhijeet Peters MD) Contusion of foot (Acute) Contusion of knee (Acute) Fall (Acute) Heart failure with reduced ejection fraction (Acute) ADHD (Acute) Urinary incontinence (Acute) Varicose veins of lower extremity (Acute) Aneurysm (Acute) Chronic systolic heart failure (Acute) Myocardial infarction (Chronic) Essential hypertension (Acute) Bipolar 2 disorder (Acute) Anemia (Chronic) Hyponatremia (Acute) Non-toxic uninodular goiter (Acute) Benign neoplasm of adrenal gland (Acute) Dermal mycosis (Acute) Porokeratosis (Acute) Pain in right foot (Acute) Pain, foot (Acute) Ingrowing nail (Acute) Chronic GERD (Acute) Anticoagulant long-term use (Acute) TBI (traumatic brain injury) (Acute) Atrial fibrillation (Chronic) Hepatomegaly (Acute) 03/24/21 RUQ us suspected mildly micronodular hepatic contour possibly representing early cirrhosis [facility] Non-ischemic cardiomyopathy (Acute) Bipolar disorder (Acute) type 2 HTN (hypertension) with goal to be determined (Acute) Pulmonary emboli (Chronic) Immunosuppression (Acute) Adenoma of right adrenal gland (Acute) Psoriatic arthritis (Acute) Psoriasis, unspecified (Chronic) GERD (gastroesophageal reflux disease) (Chronic) Obesity (Chronic) RUTH (obstructive sleep apnea) (Chronic) hypoventilation on bipap uvmmc RH 07/10/21 Schizoaffective disorder (Acute) Chest pain (Acute) Abdominal pain (Acute) Social History Smoking/Tobacco Use Status: Never Smoking risk assessment performed?: Yes Alcohol Intake: former Drug use: Never Substance use type: does not use Housing: other Do you feel safe at home: Yes Do you feel safe in your relationship?: Yes POCUS Exam (ED) Limited Cardiac Exam REASON FOR EXAM: Other indication: cardiomegaly on cxr VISUALIZED STRUCTURES: Left ventricle and Right ventricle VIEW OBTAINED: Subxiphoid PERTINENT FINDINGS/IMPRESSION: LV dysfunction and Pericardial effusion (possible trace pericardial effusion) Exam complete
[2024-11-13 13:58] LABS: Abs Immature Grans 0.13 10^3/uL (0.0-0.06); Absolute Basophil Count 0.02 10^3/uL (0.0-0.2); Absolute Lymphocyte Count 0.72 10^3/uL (1.2-3.4); Absolute Monocyte Count 0.72 10^3/uL (0.1-0.8); Absolute Neutrophil Count 7.24 10^3/uL (1.2-6.7); Basophils % 0.2 %; HCT 41.9 % (40.0-50.0); HGB 14.1 g/dL (13.5-17.5); Immature Grans % 1.5 %; Lymphocytes % 8.2 %; MCH 34.5 pg (27.0-33.0); MCHC 33.7 % (32.0-36.0); MCV 102 fL (80-95); MPV 9.5 fL (8.0-11.0); Monocytes % 8.2 %; Neutrophils % 81.9 %; Platelet Count 174 10^3/uL (130-400); RBC 4.09 10^6/uL (4.36-5.78); RDW 13.3 % (11.8-14.1); RDW-SD 50.6 fL; WBC 8.83 10^3/uL (4.4-10.8)
[2024-11-13] MEDS: Acetaminophen 500 MG TAB 1000 MG PO (13:59)
--- NOTE | 2024-11-13 14:00 | DI.RAD_ITS ---
Exam(s) XR FOOT RT COMPLETE EXAM: XR FOOT RT COMPLETE CLINICAL HISTORY: pain s/p fall. TECHNIQUE: 2D digital imaging was performed. Three views. COMPARISON: No exams were available for comparison FINDINGS: BONES: No acute fracture is present. No bony destructive lesion is seen. Heel spurs. JOINTS: No dislocation present. Hammertoe deformities. SOFT TISSUE: Dorsal soft tissue swelling. Vascular calcifications. IMPRESSION: No acute abnormality. DATA REPOSITORY: RADIATION DOSE DELIVERED:
[2024-11-13 14:10] LABS: Magnesium 2.2 mg/dL (1.8-2.4)
[2024-11-13] MEDS: Bacitracin 1 PACKET (14:12)
[2024-11-13 14:14] LABS: ALT 35 U/L (16-63); AST 14 U/L (15-37); Albumin 3.4 g/dL (3.4-5.0); Alkaline Phosphatase 87 U/L (46-116); Anion Gap 9.5 mmol/L (3-11); BUN 38 mg/dL (7-18); Bilirubin, Total 0.48 mg/dL (0.2-1.0); CO2 26.5 mmol/L (21.0-32.0); CREATININE 1.3 mg/dL (0.70-1.30); Chloride 111 mmol/L (98-107); Glucose 115 mg/dL (74-106); Potassium 3.7 mmol/L (3.5-5.1); Sodium 147 mmol/L (136-145); Total Protein 6.2 g/dL (6.4-8.2)
--- NOTE | 2024-11-13 14:15 | DI.RAD_ITS ---
Exam(s) XR FOOT LT LIMITED EXAM: XR FOOT LT LIMITED CLINICAL HISTORY: pain s/p fall. TECHNIQUE: 2D digital imaging was performed. Three views. COMPARISON: CR,XR XR FOOT RT COMPLETE from 11/13/2024 FINDINGS: BONES: No acute fracture is present. No bony destructive lesion is seen. Heel spurs. JOINTS: No dislocation present. Hammertoe deformities. SOFT TISSUE: Vascular calcifications. IMPRESSION: No acute abnormality. DATA REPOSITORY: RADIATION DOSE DELIVERED:
[2024-11-13 14:30] LABS: COVID-19 PCR Negative (Negative); Influenza A PCR Negative (Negative); Influenza B PCR Negative (Negative); RSV PCR Negative (Negative)
[2024-11-13 14:40] LABS: Source Nasopharynx
--- NOTE | 2024-11-13 14:47 | DI.VRAD_ITS ---
PROCEDURE INFORMATION: Exam: CT Head Without Contrast Exam date and time: 11/13/2024 2:05 PM Age: 44 years old Clinical indication: Other: Fall, pain TECHNIQUE: Imaging protocol: Computed tomography of the head without contrast. Radiation optimization: All CT scans at this facility use at least one of these dose optimization techniques: automated exposure control; mA and/or kV adjustment per patient size (includes targeted exams where dose is matched to clinical indication); or iterative reconstruction. COMPARISON: CT HEAD CERVICAL SPINE WO 03/02/2022 10:15 PM FINDINGS: Brain: Normal. No hemorrhage. Unremarkable white matter. No mass effect. Cerebral ventricles: No ventriculomegaly. Paranasal sinuses: Mucous retention cysts in bilateral maxillary sinuses and bilateral ethmoid air cells. Mastoid air cells: Visualized mastoid air cells are well aerated. Bones: Unremarkable. No acute fracture. Soft tissues: Unremarkable. IMPRESSION: No acute intracranial posttraumatic changes. PROCEDURE INFORMATION: Exam: CT Cervical Spine Without Contrast Exam date and time: 11/13/2024 2:05 PM Age: 44 years old Clinical indication: Other: Fall, pain TECHNIQUE: Imaging protocol: Computed tomography of the cervical spine without contrast. Radiation optimization: All CT scans at this facility use at least one of these dose optimization techniques: automated exposure control; mA and/or kV adjustment per patient size (includes targeted exams where dose is matched to clinical indication); or iterative reconstruction. COMPARISON: CT HEAD CERVICAL SPINE WO 03/02/2022 10:15 PM FINDINGS: Bones: The cervical spine demonstrates mild degenerative changes at multiple levels. No compression deformity. No acute fracture. No spondylolisthesis. Ossification at the left C4-C5 neural foramen causing severe stenosis. Lungs: Lung apices are normal. Thyroid: Calcified left thyroid nodule measuring 8 mm. Soft tissues: Unremarkable. IMPRESSION: No acute posttraumatic changes in the cervical spine. Dictated and Authenticated by: Tj Wellington MD. Ordering:LEON Jha MD
--- NOTE | 2024-11-13 15:58 | DI.VRAD_ITS ---
PROCEDURE INFORMATION: Exam: XR Right Knee Exam date and time: 11/13/2024 2:44 PM Age: 44 years old Clinical indication: Injury or trauma; Fall; Blunt trauma; Knee; Right TECHNIQUE: Imaging protocol: Radiologic exam of the right knee. Views: 3 views. COMPARISON: CR XR FOOT RT COMPLETE 11/13/2024 2:29 PM FINDINGS: Bones/joints: No knee joint effusion. Soft tissues: Quadriceps enthesophytes. IMPRESSION: No acute fracture or dislocation. Dictated and Authenticated by: Tj Wellington MD. Ordering:LEON Jha MD
--- NOTE | 2024-11-13 15:59 | DI.VRAD_ITS ---
PROCEDURE INFORMATION: Exam: XR Left Knee Exam date and time: 11/13/2024 2:48 PM Age: 44 years old Clinical indication: Injury or trauma; Fall; Blunt trauma; Knee; Right TECHNIQUE: Imaging protocol: Radiologic exam of the left knee. Views: 3 views. COMPARISON: CR XR FOOT LT COMPLETE 11/13/2024 2:37 PM FINDINGS: Bones/joints: Deformity of the proximal tibial metaphysis and proximal fibular metaphysis, likely from prior insult. No knee joint effusion. No acute fracture or dislocation. Soft tissues: Quadriceps enthesophytes. IMPRESSION: No acute fracture or dislocation. Dictated and Authenticated by: Tj Wellington MD. Ordering:LEON Jha MD
--- NOTE | 2024-11-13 16:00 | DI.VRAD_ITS ---
PROCEDURE INFORMATION: Exam: XR Left Foot Exam date and time: 11/13/2024 2:37 PM Age: 44 years old Clinical indication: Injury or trauma; Fall; Blunt trauma; Foot; Left TECHNIQUE: Imaging protocol: Radiologic exam of the left foot. Views: 1 or 2 views. COMPARISON: No relevant prior studies available. FINDINGS: Bones/joints: Achilles enthesophytes. Inferior calcaneal spur. Soft tissues: Normal. Vasculature: Vascular calcifications. IMPRESSION: No acute fracture or dislocation. Dictated and Authenticated by: Tj Wellington MD. Ordering:LEON Jha MD
--- NOTE | 2024-11-13 16:01 | DI.VRAD_ITS ---
PROCEDURE INFORMATION: Exam: XR Chest Exam date and time: 11/13/2024 2:57 PM Age: 44 years old Clinical indication: Other: ? Pneumonia TECHNIQUE: Imaging protocol: Radiologic exam of the chest. Views: 2 views. COMPARISON: CR XR CHEST 2V PA LATERAL 03/06/2022 10:50 AM FINDINGS: Lungs: Poor inspiratory effort with crowding of the vasculature. Pleural spaces: Unremarkable. No pleural effusion. No pneumothorax. Heart/Mediastinum: The heart is enlarged. Bones/joints: Moderate degenerative disease of bilateral acromioclavicular joints. The thoracic spine demonstrates mild degenerative changes at multiple levels. IMPRESSION: No gross consolidation. Dictated and Authenticated by: Tj Wellington MD. Ordering:LEON Jha MD
--- NOTE | 2024-11-13 16:02 | DI.VRAD_ITS ---
PROCEDURE INFORMATION: Exam: XR Right Foot Exam date and time: 11/13/2024 2:29 PM Age: 44 years old Clinical indication: Injury or trauma; Fall; Blunt trauma; Foot; Right TECHNIQUE: Imaging protocol: Radiologic exam of the right foot. Views: 3 or more views. COMPARISON: No relevant prior studies available. FINDINGS: Bones/joints: Inferior calcaneal spur. Achilles enthesophytes. Moderate hallux valgus. Moderate degenerative disease of the interphalangeal joints. Soft tissues: Soft tissue swelling around the foot. Vasculature: Vascular calcifications. IMPRESSION: No acute fracture or dislocation. Dictated and Authenticated by: Tj Wellington MD. Ordering:LEON Jha MD
[2024-11-13 16:15] VITALS: BP 151/105; PULSE 73; RESP 16; O2SAT 97
== END 2024-11-13 16:21 | disposition home or self-care (01) ==
PROVIDERS: Emergency Provider Emergency Medicine; PCP Internal Medicine
DX: S80.01XA Contusion of right knee, initial encounter; W18.11XA Fall from or off toilet without subsequent striking against object, initial encounter; W18.2XXA Fall in (into) shower or empty bathtub, initial encounter; Z79.01 Long term (current) use of anticoagulants; S90.31XA Contusion of right foot, initial encounter; S80.02XA Contusion of left knee, initial encounter; Z86.79 Personal history of other diseases of the circulatory system; R53.83 Other fatigue; I51.7 Cardiomegaly
CPT/HCPCS: 36415; 73562; 80053; 87637; 93308; 99284; 70450; 71046; 72125; 73620; 73630; 83735; 85025

== ENCOUNTER 2024-11-29 16:31 | Outpatient (REF) | payer MEDICARE, MEDICAID, SELFPAY ==
[2024-11-29 19:26] LABS: Absolute Basophil Count 0.06 10^3/uL (0.0-0.2); Absolute Eosinophil Count 0.01 10^3/uL (0.0-0.7); Absolute Lymphocyte Count 1.16 10^3/uL (1.2-3.4); Absolute Monocyte Count 0.74 10^3/uL (0.1-0.8); Absolute Neutrophil Count 6.99 10^3/uL (1.2-6.7); Basophils % 0.7 %; Eosinophils % 0.1 %; HCT 44.6 % (40.0-50.0); HGB 15.1 g/dL (13.5-17.5); Immature Grans % 1.1 %; Lymphocytes % 12.8 %; MCH 34.7 pg (27.0-33.0); MCHC 33.9 % (32.0-36.0); MCV 103 fL (80-95); MPV 9.9 fL (8.0-11.0); Monocytes % 8.2 %; Neutrophils % 77.1 %; Platelet Count 216 10^3/uL (130-400); RBC 4.35 10^6/uL (4.36-5.78); RDW 13.3 % (11.8-14.1); RDW-SD 50.4 fL; WBC 9.06 10^3/uL (4.4-10.8)
[2024-11-29 19:54] LABS: ALT 42 U/L (16-63); AST 18 U/L (15-37); Albumin 3.6 g/dL (3.4-5.0); Alkaline Phosphatase 100 U/L (46-116); Anion Gap 10.8 mmol/L (3-11); BUN 37 mg/dL (7-18); Bilirubin, Total 0.44 mg/dL (0.2-1.0); CO2 28.2 mmol/L (21.0-32.0); CREATININE 1.3 mg/dL (0.70-1.30); Calcium 9.4 mg/dL (8.5-10.1); Chloride 109 mmol/L (98-107); Glucose 112 mg/dL (74-106); Magnesium 2.1 mg/dL (1.8-2.4); Potassium 3.9 mmol/L (3.5-5.1); Sodium 148 mmol/L (136-145); Total Protein 6.6 g/dL (6.4-8.2)
== END 2024-11-29 16:32 | disposition home or self-care (01) ==
LOC: NCHCN 16:31
PROVIDERS: PCP Internal Medicine; Visit Provider Nurse Practitioner Family
DX: Z51.81 Encounter for therapeutic drug level monitoring (principal)
CPT/HCPCS: 80053; 83735; 85025

== ENCOUNTER 2024-12-26 12:56 | Outpatient (REF) | payer MEDICARE, MEDICAID, SELFPAY ==
[2024-12-26 18:54] LABS: Abs Immature Grans 0.28 10^3/uL (0.0-0.06); Absolute Basophil Count 0.08 10^3/uL (0.0-0.2); Absolute Lymphocyte Count 1.63 10^3/uL (1.2-3.4); Absolute Monocyte Count 0.82 10^3/uL (0.1-0.8); Absolute Neutrophil Count 6.54 10^3/uL (1.2-6.7); Basophils % 0.9 %; HCT 43.7 % (40.0-50.0); HGB 14.9 g/dL (13.5-17.5); Lymphocytes % 17.4 %; MCH 34.1 pg (27.0-33.0); MCHC 34.1 % (32.0-36.0); MCV 100 fL (80-95); MPV 9.6 fL (8.0-11.0); Monocytes % 8.8 %; Neutrophils % 69.9 %; Platelet Count 199 10^3/uL (130-400); RBC 4.37 10^6/uL (4.36-5.78); RDW 12.8 % (11.8-14.1); RDW-SD 47.1 fL; WBC 9.35 10^3/uL (4.4-10.8)
== END 2024-12-26 12:57 | disposition home or self-care (01) ==
LOC: NCHCN 12:56
PROVIDERS: PCP Internal Medicine; Visit Provider Nurse Practitioner Family
DX: Z51.81 Encounter for therapeutic drug level monitoring (principal)
CPT/HCPCS: 85025

== ENCOUNTER 2024-12-29 10:50 | Emergency (ER) | payer MEDICARE, MEDICAID, SELFPAY ==
[2024-12-29] VITALS (7 sets, daily range): BP systolic 84–143; BP diastolic 63–92; PULSE 70–122; RESP 16–20; TEMP 36.8; O2SAT 96–98
--- NOTE | 2024-12-29 10:45 | RT.EKG_ITS ---
APPROVED REPORT Exam: Resting ECG Reason for Exam: afib Patient Location: E HR:83 bpm ECG Measurements Heart Rate 83 AXIS TN [id number] P [id number] QRSd 107 QRS 8 QT 349 T 253 QTc 398 Conclusion Atrial fibrillation...V-rate 66-102, irreg A-activity Repol abnrm suggests ischemia, lateral leads...ST dep, T neg, I aVL V5 V6 Physician: mild inferior and lateral depressions
--- NOTE | 2024-12-29 10:45 | DI.RAD_ITS ---
Exam(s) XR CHEST 2V PA LATERAL EXAM: XR CHEST 2V PA LATERAL CLINICAL HISTORY: weakness. TECHNIQUE: 2D digital imaging was performed. COMPARISON: CR,XR XR CHEST 2V PA LATERAL from 11/13/2024 FINDINGS: 2 views: Cardiomegaly again noted. The mediastinum is not widened. The right lung remains clear. There are mild increased markings in left lower lobe cyst. No prominent infiltrates. No pleural effusions. N o pulmonary edema. IMPRESSION: Mild increased markings in left lower lobe. No pleural effusions. Mild cardiomegaly. No pulmonary edema. DATA REPOSITORY: RADIATION DOSE DELIVERED:
[2024-12-29 11:52] LABS: Abs Immature Grans 0.29 10^3/uL (0.0-0.06); Absolute Basophil Count 0.07 10^3/uL (0.0-0.2); Absolute Lymphocyte Count 1.38 10^3/uL (1.2-3.4); Absolute Monocyte Count 0.68 10^3/uL (0.1-0.8); Absolute Neutrophil Count 7.58 10^3/uL (1.2-6.7); Basophils % 0.7 %; HCT 44.5 % (40.0-50.0); HGB 15.2 g/dL (13.5-17.5); Immature Grans % 2.9 %; Lymphocytes % 13.8 %; MCH 33.6 pg (27.0-33.0); MCHC 34.2 % (32.0-36.0); MCV 99 fL (80-95); MPV 9.1 fL (8.0-11.0); Monocytes % 6.8 %; Neutrophils % 75.8 %; Platelet Count 173 10^3/uL (130-400); RBC 4.52 10^6/uL (4.36-5.78); RDW 12.8 % (11.8-14.1); RDW-SD 46.3 fL
[2024-12-29 12:21] LABS: ALT 97 U/L (16-63); AST 43 U/L (15-37); Albumin 3.3 g/dL (3.4-5.0); Alkaline Phosphatase 116 U/L (46-116); Anion Gap 9.8 mmol/L (3-11); BUN 32 mg/dL (7-18); Bilirubin, Total 0.52 mg/dL (0.2-1.0); CO2 26.2 mmol/L (21.0-32.0); CREATININE 0.8 mg/dL (0.70-1.30); Calcium 8.9 mg/dL (8.5-10.1); Chloride 111 mmol/L (98-107); Estimated GFR 112.61 (mL/min/1.73m2); Glucose 91 mg/dL (74-106); Lipase 52 U/L (<78); Magnesium 2.1 mg/dL (1.8-2.4); NT-proBNP 1631 pg/mL (<300); Potassium 3.5 mmol/L (3.5-5.1); Sodium 147 mmol/L (136-145); TSH (W/Ref FT4) 1.03 uIU/mL (0.36-3.74); Total Protein 6.4 g/dL (6.4-8.2); Troponin I 33 ng/L (<or=76)
[2024-12-29 13:12] LABS: Troponin I 28 ng/L (<or=76)
[2024-12-29] MEDS: Lidocaine 2% Jelly 6 ML SYR (13:30)
[2024-12-29 13:35] LABS: Bilirubin Negative (Negative); Blood Negative (Negative); Clarity Sl Cloudy (Clear); Glucose 250 mg/dL (Negative); Ketones Negative (Negative); Leukocyte Esterase Negative (Negative); Nitrite Negative (Negative); Specific Gravity 1.015 (1.005-1.025); Urobilinogen 0.2 mg/dL (Up to 0.2); pH 5.5 (5-8)
[2024-12-29] MEDS: Perphenazine 2 MG TABLET 16 MG PO (13:37)
--- NOTE | 2024-12-29 16:17 | ED.GENADUL_ITS ---
Discharge Plan Disposition Patient Disposition: Home Condition: Stable Discharge Details Clinical Impression: At high risk for falls, Atrial fibrillation Primary Care Provider: Myles Contreras ED Provider: Suzanne Kirkpatrick Home Meds and New Rx's Prescriptions: Continued benztropine 2 mg tablet 2 mg PO BID perphenazine 8 mg tablet 16 mg PO QID Minerin Creme Cream 1 applic topical QID acetaminophen 325 mg tablet 650 mg PO TID PRN Patient Comments: 1-2 tabs polyethylene glycol 3350 [Miralax] 17 gram/dose powder 17 g PO DAILY spironolactone [Aldactone] 50 mg tablet 275 mg PO BID Lactobacillus acidophilus 100 mg (1 billion cell) capsule 100 mmu cells PO DAILY L-Carnitine 500 mg tablet 500 mg PO DAILY Rx Instructions: must administer with a meal/food pantoprazole [Protonix] 40 mg tablet,delayed release (DR/EC) 40 mg PO QAM cholecalciferol (vitamin D3) 25 mcg (1,000 unit) capsule 25 mcg PO QAM Jardiance 10 mg tablet 10 mg PO DAILY carvedilol 25 mg tablet 25 mg PO BID Rx Instructions: must administer with a meal/food docusate sodium 100 mg capsule 100 mg PO BID Eliquis 5 mg tablet 5 mg PO BID calcium carbonate [Calcium 500] 500 mg calcium (1,250 mg) tablet,chewable 500 mg PO QID PRN ferrous sulfate 325 mg (65 mg iron) tablet 325 mg PO .qod Patient Comments: MWF fluticasone propionate 0.05 % cream 1 applic topical QD-BID PRN Eucerin Advanced Repair Cream 1 applic topical PRN terbinafine HCl [Athlete's Foot (terbinafine)] 1 % cream 1 applic topical BID urea 40 % cream 1 applic topical DAILY Qty: 28.35 3RF torsemide 10 mg tablet 5 mg PO DAILY clozapine 200 mg tablet 100 mg PO BID Patient Comments: 100mg qam 200mg qhs Rx Instructions: 100 mg q am 200 mg qhs lorazepam 1 mg tablet 0.5 mg PO BID PRN Rx Instructions: 1 mg daily, 1/2 mg TID mupirocin 2 % ointment 1 applic topical TID oxcarbazepine [Oxtellar XR] 300 mg tablet extended release 24 hr 300 mg PO BID Rx Instructions: must be taken on empty stomach; no food at least 2 hrs before or 1 hr after dose capsaicin [Capzasin-HP] 0.1 % Cream 1 applic TOPICAL BID PRN digoxin 125 mcg (0.125 mg) tablet 0.125 mg PO DAILY Acidophilus Capsule 100 mg PO DAILY cholecalciferol (vitamin D3) [Vitamin D3] 25 mcg (1,000 unit) Capsule 25 mcg PO DAILY losartan [Cozaar] 25 mg tablet 25 mg PO DAILY aspirin [Adult Aspirin Regimen] 81 mg tablet,delayed release (DR/EC) 81 mg PO DAILY metoprolol succinate 25 mg tablet extended release 24 hr 100 mg PO BID Discharge Instructions Instructions: Orthostatic hypotension, Atrial Fibrillation (DC), Dizziness, Adult ED Additional Instructions: These follow-up with your primary care physician for reassessment tomorrow use walker with sitting and standing give yourself a minute to activate Talk to your taker off braker machine next week about the lightheadedness you have been having intermittently whether or not digoxin is the best medication for you Recommend that Deni does not shower independently unless he is seated with close observation Recommend earlier follow-up with urology Recommend follow-up with neurology Please return with new or worsening complaints Referrals: Myles Contreras [Primary Care Provider] - 1 day HPI General Date/Time Provider Initiated Documentation: 12/29/24 10:58 . HPI Narrative: This 44-year-old male with history of atrial fibrillation reduced ejection fraction, cardiac, chronic systolic heart failure, RI, hypertension bipolar anemia TBI nonischemic cardiomyopathy and schizoaffective disorder history who was recently admitted for CHF at [facility] and started on digoxin. Patient reportedly has had some trouble with orthostatic hypotension in the past and supposed to use caution with going from sitting to standing and ambulating, however he is in the shower today and had some lightheadedness and called for help was found awake and alert and sitting in the shower there is no evidence of head injury patient is at his cognitive baseline. Patient denies any current complaints otherwise a poor historian. His caregiver is in the room and quite comfortable with him and states that his lightheadedness has been slightly worse in the past several days. Patient has not been complaining of headaches there has been no reported head injury. He had an appointment with cardiology today for follow-up and unfortunately missed his appointment. He is also had some difficulties with urination and sounds like he has an appointment with urology for this. Related Data Home Medications ?Medication ?Instructions ?Recorded ?Confirmed Lactobacillus acidophilus 100 mg PO DAILY 05/07/21 12/29/24 (Acidophilus capsule) cholecalciferol (vitamin D3) 25 25 mcg PO DAILY 05/07/21 12/29/24 mcg (1,000 unit) capsule (Vitamin D3) capsaicin 0.1 % topical cream 1 applic topical BID PRN 05/11/21 12/29/24 (Capzasin-HP) torsemide 10 mg tablet 5 mg PO DAILY 08/23/21 12/29/24 polyethylene glycol 3350 17 17 g PO DAILY 12/15/22 12/29/24 gram/dose oral powder (Miralax) acetaminophen 325 mg tablet 650 mg PO TID PRN 01/29/23 12/29/24 lanolin alcohols-mineral 1 applic topical QID 01/29/23 12/29/24 oil-w.petrolatum-ceresin topical cream (Minerin Creme topical) benztropine 2 mg tablet 2 mg PO BID 02/06/23 12/29/24 perphenazine 8 mg tablet 16 mg PO QID 02/06/23 12/29/24 Lactobacillus acidophilus 100 mg 100 mmu cells PO DAILY 03/22/24 12/29/24 (1 billion cell) capsule apixaban 5 mg tablet (Eliquis) 5 mg PO BID 03/22/24 12/29/24 calcium carbonate (Calcium 500) 500 mg PO QID PRN 03/22/24 12/29/24 carvedilol 25 mg tablet 25 mg PO BID 03/22/24 12/29/24 cholecalciferol (vitamin D3) 25 25 mcg PO QAM 03/22/24 12/29/24 mcg (1,000 unit) capsule docusate sodium 100 mg capsule 100 mg PO BID 03/22/24 12/29/24 emollient combination no.119 1 applic topical PRN 03/22/24 12/29/24 (Eucerin Advanced Repair topical cream) empagliflozin 10 mg tablet 10 mg PO DAILY 03/22/24 12/29/24 (Jardiance) ferrous sulfate 325 mg (65 mg 325 mg PO .qod 03/22/24 12/29/24 iron) tablet fluticasone propionate 0.05 % 1 applic topical QD-BID PRN 03/22/24 12/29/24 topical cream levocarnitine 500 mg tablet 500 mg PO DAILY 03/22/24 12/29/24 (L-Carnitine) pantoprazole 40 mg tablet,delayed 40 mg PO QAM 03/22/24 12/29/24 release (Protonix) spironolactone 50 mg tablet 275 mg PO BID 03/22/24 12/29/24 (Aldactone) terbinafine HCl 1 % topical cream 1 applic topical BID 03/22/24 12/29/24 (Athlete's Foot (terbinafine)) urea 40 % topical cream 1 applic topical DAILY #28.35 grams 04/04/24 12/29/24 clozapine 200 mg tablet 100 mg PO BID 09/30/24 12/29/24 lorazepam 1 mg tablet 0.5 mg PO BID PRN 09/30/24 12/29/24 mupirocin 2 % topical ointment 1 applic topical TID 09/30/24 12/29/24 oxcarbazepine 300 mg 300 mg PO BID 09/30/24 12/29/24 tablet,extended release 24 hr (Oxtellar XR) aspirin 81 mg tablet,delayed 81 mg PO DAILY 11/13/24 12/29/24 release (Adult Aspirin Regimen) losartan 25 mg tablet (Cozaar) 25 mg PO DAILY 11/13/24 12/29/24 metoprolol succinate 25 mg 100 mg PO BID 11/13/24 12/29/24 tablet,extended release 24 hr digoxin 125 mcg (0.125 mg) tablet 0.125 mg PO DAILY 12/29/24 12/29/24 Previous Rx's ?Medication ?Instructions ?Recorded urea 40 % topical cream 1 applic topical DAILY #28.35 grams 04/04/24 Allergies Allergy/AdvReac Type Severity Reaction Status Date / Time latex Allergy Severe rash, Verified 12/29/24 11:17 difficulty breathing divalproex sodium (From AdvReac am[place] Verified 12/29/24 11:17 Depakote) levels too high General Stated Complaint: GenMedical CONNER: 3 Exam Narrative Exam Narrative: Patient is alert and at his cognitive baseline, he is able to follow basic commands and answering basic questions pupils equal round reactive to light and accommodation no evidence of trauma clinically no abdominal tendernes. Rate controlled irregular rhythm lungs clear to auscultation no abdominal tenderness or visible evidence of trauma, no visible evidence of trauma to thorax distal pulses intact no peripheral edema Course Vital Signs Vital signs: Vital Signs Temperature 36.8 C 12/29/24 11:14 Pulse 70 12/29/24 11:14 Respiratory Rate 16 12/29/24 11:14 Blood Pressure 116/81 12/29/24 11:14 Pulse Oximetry 96 12/29/24 11:14 Temperature 36.8 C 12/29/24 11:19 Temperature Source Oral 12/29/24 11:19 Pulse 85 12/29/24 16:02 Respiratory Rate 16 12/29/24 16:02 Respiratory Effort Normal, Non-Labored 12/29/24 15:01 Respiratory Depth Normal 12/29/24 15:01 Respiratory Pattern Normal 12/29/24 15:01 Blood Pressure 143/92 H 12/29/24 16:02 Blood Pressure Mean 109 12/29/24 16:02 Blood Pressure Position Sitting 12/29/24 16:02 Pulse Oximetry 96 12/29/24 16:02 Oxygen Delivery Method Room Air 12/29/24 15:01 Oxygen Flow Rate 0 12/29/24 15:01 Lab/Test Results Lab/Test Results: Laboratory Tests Range/Units 12/29/24 12/29/24 12/29/24 11:38 12:43 13:26 WBC (4.4-10.8) 10^3/uL 10.00 RBC (4.36-5.78) 10^6/uL 4.52 Hgb (13.5-17.5) g/dL 15.2 Hct (40.0-50.0) % 44.5 MCV (80-95) fL 99 H MCH (27.0-33.0) pg 33.6 H MCHC (32.0-36.0) % 34.2 RDW (11.8-14.1) % 12.8 Plt Count (130-400) 10^3/uL 173 MPV (8.0-11.0) fL 9.1 Immature Gran % % 2.9 Neutrophils % % 75.8 Lymphocytes % % 13.8 Monocytes % % 6.8 Eosinophils % % 0.0 Basophils % % 0.7 Nucleated RBC % (0.0-0.3) % 0.0 Absolute Neutrophils (1.2-6.7) 10^3/uL 7.58 H Absolute Lymphocytes (1.2-3.4) 10^3/uL 1.38 Absolute Monocytes (0.1-0.8) 10^3/uL 0.68 Absolute Eosinophils (0.0-0.7) 10^3/uL 0.00 Absolute Basophils (0.0-0.2) 10^3/uL 0.07 Sodium (136-145) mmol/L 147 H Potassium (3.5-5.1) mmol/L 3.5 Chloride (98-107) mmol/L 111 H Carbon Dioxide (21.0-32.0) mmol/L 26.2 Anion Gap (3-11) mmol/L 9.8 BUN (7-18) mg/dL 32 H Creatinine (0.70-1.30) mg/dL 0.8 Est GFR (CKD-EPI 2020) (mL/min/1.73m2) 112.61 Glucose (74-106) mg/dL 91 Calcium (8.5-10.1) mg/dL 8.9 Magnesium (1.8-2.4) mg/dL 2.1 Total Bilirubin (0.2-1.0) mg/dL 0.52 AST (15-37) U/L 43 H ALT (16-63) U/L 97 H Alkaline Phosphatase (46-116) U/L 116 Troponin I (<or=76) ng/L 33 28 NT-Pro-B Natriuret Pep (<300) pg/mL 1631 H Total Protein (6.4-8.2) g/dL 6.4 Albumin (3.4-5.0) g/dL 3.3 L Lipase (<78) U/L 52 TSH (0.36-3.74) uIU/mL 1.03 Urine Color (Yellow) Yellow Urine Clarity (Clear) Sl Cloudy Urine pH (5-8) 5.5 Ur Specific [place] (1.005-1.025) 1.015 Urine Protein (Neg-Trace) mg/dL Negative Urine Ketones (Negative) mg/dL Negative Urine Blood (Negative) Negative Urine Nitrite (Negative) Negative Urine Bilirubin (Negative) Negative Urine Urobilinogen (Up to 0.2) mg/dL 0.2 Ur Leukocyte Esterase (Negative) Negative Urine Glucose (Negative) mg/dL 250 H Range/Units 12/29/24 13:58 WBC (4.4-10.8) 10^3/uL RBC (4.36-5.78) 10^6/uL Hgb (13.5-17.5) g/dL Hct (40.0-50.0) % MCV (80-95) fL MCH (27.0-33.0) pg MCHC (32.0-36.0) % RDW (11.8-14.1) % Plt Count (130-400) 10^3/uL MPV (8.0-11.0) fL Immature Gran % % Neutrophils % % Lymphocytes % % Monocytes % % Eosinophils % % Basophils % % Nucleated RBC % (0.0-0.3) % Absolute Neutrophils (1.2-6.7) 10^3/uL Absolute Lymphocytes (1.2-3.4) 10^3/uL Absolute Monocytes (0.1-0.8) 10^3/uL Absolute Eosinophils (0.0-0.7) 10^3/uL Absolute Basophils (0.0-0.2) 10^3/uL Sodium (136-145) mmol/L Potassium (3.5-5.1) mmol/L Chloride (98-107) mmol/L Carbon Dioxide (21.0-32.0) mmol/L Anion Gap (3-11) mmol/L BUN (7-18) mg/dL Creatinine (0.70-1.30) mg/dL Est GFR (CKD-EPI 2020) (mL/min/1.73m2) Glucose (74-106) mg/dL Calcium (8.5-10.1) mg/dL Magnesium (1.8-2.4) mg/dL Total Bilirubin (0.2-1.0) mg/dL AST (15-37) U/L ALT (16-63) U/L Alkaline Phosphatase (46-116) U/L Troponin I (<or=76) ng/L Cancelled NT-Pro-B Natriuret Pep (<300) pg/mL Total Protein (6.4-8.2) g/dL Albumin (3.4-5.0) g/dL Lipase (<78) U/L TSH (0.36-3.74) uIU/mL Urine Color (Yellow) Urine Clarity (Clear) Urine pH (5-8) Ur Specific [place] (1.005-1.025) Urine Protein (Neg-Trace) mg/dL Urine Ketones (Negative) mg/dL Urine Blood (Negative) Urine Nitrite (Negative) Urine Bilirubin (Negative) Urine Urobilinogen (Up to 0.2) mg/dL Ur Leukocyte Esterase (Negative) Urine Glucose (Negative) mg/dL Medical Decision Making 44-year-old male with a noted very complex medical history presenting with lightheadedness and a fall today secondary to reported lightheadedness. Ort hostatics were ordered at the end of my assessment and patient was orthostatic, however this was after straight catheterization that patient had approximately 800 cc of urine emptied. Patient secondary to his schizophrenia reportedly holds urine but typically is able to urinate on command. He has no evidence of urinary retention and after approximately 2 hours, he was no longer orthostatic on reassessment and he is able to ambulate. Patient was recently started on digoxin, I think he benefit from close outpatient follow-up with cardiology however at this time I think rehab is able to monitor him, they will not allow him to shower independently and he will use caution when going from sitting to standing. He has a walker which he will use and will place referral for PCP follow-up tomorrow. They are encouraged to be sure patient is drinking fluids with every meal and having normal urinary output. Vitals are stable CBC and CMP are reassuring aside from some mild elevation in BUN which may be some dehydration AST and ALT are mildly elevated patient is nontender abdominal exam and he can have this rechecked in the outpatient setting BNP is patient's baseline at 1631 urinalysis does not show evidence of acute abnormality. Patient has scheduled follow-up with urology, psychiatry, and cardiology referral placed for PCP recheck tomorrow return precautions reviewed and patient caregiver and patient expressed understanding Quality:SDOH Health Related Social Needs: No Data to Display PFSH All Active Problems (Updated 12/29/24 @ 16:54 by TRIP Jordan) Atrial fibrillation (Chronic) At high risk for falls (Acute) Heart failure with reduced ejection fraction (Acute) ADHD (Acute) Urinary incontinence (Acute) Varicose veins of lower extremity (Acute) Aneurysm (Acute) Chronic systolic heart failure (Acute) Myocardial infarction (Chronic) Essential hypertension (Acute) Bipolar 2 disorder (Acute) Anemia (Chronic) Hyponatremia (Acute) Non-toxic uninodular goiter (Acute) Benign neoplasm of adrenal gland (Acute) Dermal mycosis (Acute) Porokeratosis (Acute) Pain in right foot (Acute) Pain, foot (Acute) Ingrowing nail (Acute) Chronic GERD (Acute) Anticoagulant long-term use (Acute) TBI (traumatic brain injury) (Acute) Atrial fibrillation (Chronic) Hepatomegaly (Acute) 03/24/21 RUQ us suspected mildly micronodular hepatic contour possibly representing early cirrhosis [facility] Non-ischemic cardiomyopathy (Acute) Bipolar disorder (Acute) type 2 HTN (hypertension) with goal to be determined (Acute) Pulmonary emboli (Chronic) Immunosuppression (Acute) Adenoma of right adrenal gland (Acute) Psoriatic arthritis (Acute) Psoriasis, unspecified (Chronic) GERD (gastroesophageal reflux disease) (Chronic) Obesity (Chronic) RUTH (obstructive sleep apnea) (Chronic) hypoventilation on bipap uvmmc 07/10/21 Schizoaffective disorder (Acute) Chest pain (Acute) Abdominal pain (Acute) Social History Smoking/Tobacco Use Status: Never Smoking risk assessment performed?: Yes Alcohol Intake: former Drug use: Never Substance use type: does not use Housing: other Do you feel safe at home: Yes Do you feel safe in your relationship?: Yes
== END 2024-12-29 17:20 | disposition home or self-care (01) ==
PROVIDERS: Emergency Provider Physician Assistant; PCP Internal Medicine
DX: I48.91 Unspecified atrial fibrillation (principal); Z91.81 History of falling; Z79.01 Long term (current) use of anticoagulants
CPT/HCPCS: 36415; 36416; 51701; 51798; 80053; 82962; 83690; 93005; 99284; 71046; 81003; 83735; 83880; 84443; 84484; 85025; 93010; J3490

== ENCOUNTER 2025-01-30 14:18 | Outpatient (REF) | payer MEDICARE, MEDICAID, SELFPAY ==
[2025-01-30 19:16] LABS: Abs Immature Grans 0.21 10^3/uL (0.0-0.06); Absolute Basophil Count 0.05 10^3/uL (0.0-0.2); Absolute Eosinophil Count 0.01 10^3/uL (0.0-0.7); Absolute Lymphocyte Count 1.47 10^3/uL (1.2-3.4); Absolute Neutrophil Count 6.12 10^3/uL (1.2-6.7); Basophils % 0.6 %; Eosinophils % 0.1 %; HCT 42.8 % (40.0-50.0); HGB 14.1 g/dL (13.5-17.5); Immature Grans % 2.5 %; Lymphocytes % 17.2 %; MCHC 32.9 % (32.0-36.0); MCV 103 fL (80-95); MPV 9.7 fL (8.0-11.0); Monocytes % 8.2 %; Neutrophils % 71.4 %; Platelet Count 211 10^3/uL (130-400); RBC 4.15 10^6/uL (4.36-5.78); RDW 13.2 % (11.8-14.1); RDW-SD 49.6 fL; WBC 8.56 10^3/uL (4.4-10.8)
== END 2025-01-30 14:19 | disposition home or self-care (01) ==
LOC: NCHCN 14:18
PROVIDERS: PCP Internal Medicine; Visit Provider Nurse Practitioner Family
DX: F25.0 Schizoaffective disorder, bipolar type (principal)
CPT/HCPCS: 85025

== ENCOUNTER 2025-02-27 03:30 | Outpatient (REF) | payer MEDICARE, MEDICAID, SELFPAY ==
[2025-02-27 19:32] LABS: Abs Immature Grans 0.25 10^3/uL (0.0-0.06); Absolute Basophil Count 0.07 10^3/uL (0.0-0.2); Absolute Eosinophil Count 0.01 10^3/uL (0.0-0.7); Absolute Lymphocyte Count 1.46 10^3/uL (1.2-3.4); Absolute Monocyte Count 0.77 10^3/uL (0.1-0.8); Basophils % 0.8 %; Eosinophils % 0.1 %; HCT 41.2 % (40.0-50.0); HGB 14.1 g/dL (13.5-17.5); Immature Grans % 2.7 %; Lymphocytes % 15.8 %; MCH 34.1 pg (27.0-33.0); MCHC 34.2 % (32.0-36.0); MCV 100 fL (80-95); MPV 9.8 fL (8.0-11.0); Monocytes % 8.3 %; Neutrophils % 72.3 %; Platelet Count 222 10^3/uL (130-400); RBC 4.14 10^6/uL (4.36-5.78); RDW 13.1 % (11.8-14.1); RDW-SD 48.2 fL; WBC 9.26 10^3/uL (4.4-10.8)
[2025-02-27 19:46] LABS: Anion Gap 7.2 mmol/L (3-11); BUN 31 mg/dL (7-18); CO2 26.8 mmol/L (21.0-32.0); CREATININE 0.8 mg/dL (0.70-1.30); Calcium 9.1 mg/dL (8.5-10.1); Chloride 112 mmol/L (98-107); Estimated GFR 112.61 (mL/min/1.73m2); Glucose 89 mg/dL (74-106); Potassium 3.8 mmol/L (3.5-5.1); Sodium 146 mmol/L (136-145)
== END 2025-02-27 03:31 | disposition home or self-care (01) ==
LOC: NCHCN 03:30
PROVIDERS: PCP Internal Medicine; Visit Provider Internal Medicine
DX: I50.20 Unspecified systolic (congestive) heart failure (principal); F25.0 Schizoaffective disorder, bipolar type
CPT/HCPCS: 80048; 80162; 85025

== ENCOUNTER → 2025-03-16 09:11 | Outpatient (BNVA) | payer MEDICARE, MEDICAID, SELFPAY | PROVIDERS: PCP Internal Medicine; Referring Provider Internal Medicine; Visit Provider Nurse Practitioner Gerontology | DX: R32 Unspecified urinary incontinence (principal); N30.00 Acute cystitis without hematuria | CPT/HCPCS: 99215; 81003; 51798 ==

== ENCOUNTER 2025-03-27 16:09 | Outpatient (REF) | payer MEDICARE, MEDICAID, SELFPAY ==
[2025-03-27 19:21] LABS: Absolute Basophil Count 0.07 10^3/uL (0.0-0.2); Absolute Eosinophil Count 0.01 10^3/uL (0.0-0.7); Absolute Lymphocyte Count 1.65 10^3/uL (1.2-3.4); Absolute Monocyte Count 0.85 10^3/uL (0.1-0.8); Absolute Neutrophil Count 6.87 10^3/uL (1.2-6.7); Basophils % 0.7 %; Eosinophils % 0.1 %; HCT 42.8 % (40.0-50.0); HGB 14.2 g/dL (13.5-17.5); Immature Grans % 3.1 %; Lymphocytes % 16.9 %; MCH 33.7 pg (27.0-33.0); MCHC 33.2 % (32.0-36.0); MCV 102 fL (80-95); MPV 9.8 fL (8.0-11.0); Monocytes % 8.7 %; Neutrophils % 70.5 %; Platelet Count 227 10^3/uL (130-400); RBC 4.21 10^6/uL (4.36-5.78); RDW 12.9 % (11.8-14.1); RDW-SD 48.2 fL; WBC 9.75 10^3/uL (4.4-10.8)
== END 2025-03-27 16:10 | disposition home or self-care (01) ==
LOC: NCHCN 16:09
PROVIDERS: PCP Internal Medicine; Visit Provider Nurse Practitioner Family
DX: F25.0 Schizoaffective disorder, bipolar type (principal)
CPT/HCPCS: 85025